=== PATIENT | female | born 1995 | race Caucasian/White ===

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

== ENCOUNTER 2018-09-20 21:05 | Emergency (ER) | payer OTHER ==
[2018-09-20 21:10] VITALS: BP 117/83; PULSE 81; RESP 16; TEMP 98.9
[2018-09-20 21:32] LABS: Appearance,Urine Cloudy (Clear); Bacteria,Urine Occasional /hpf; Bilirubin,Urine Negative (Negative); Blood,Urine Negative (Negative); Color,Urine Yellow; Glucose,Urine (UA) Negative (Negative); Ketones,Urine Negative (Negative); Leukocyte Esterase,Urine Small (Negative); Mucus,Urine Rare /hpf; Nitrite,Urine Negative (Negative); Protein,Urine Negative (Negative); RBC,Urine 7 /hpf (0-5); Specific Gravity,Urine 1.017 (1.001-1.035); Squamous Epithelial Cell,Urine 7 /hpf (0-4); Urobilinogen,Urine <2.0 mg/dL (<2.0); WBC,Urine 5 /hpf (0-5)
--- NOTE | 2018-09-20 21:41 | ED ---
Abdominal Pain HPI - General Chief Complaint: Abdominal Pain Stated Complaint: Abd pain Time Seen by Provider: 09/20/18 21:12 Source: patient Mode of arrival: ambulatory Limitations: no limitations - History of Present Illness Initial Comments: This patient is 22-year-old woman who presents to be evaluated for abdominal pain. Patient states that she started having symptoms Bruno evening. She began having suprapubic cramping type pain. The pain is currently moderate. She states it's worse with trying to walk. The pain is better if she hunches o jadyn. The patient states that over the course of next few days this worsened and she was seen earlier this week at the clinic in [place]. She states at that time she was diagnosed with bacterial vaginosis and was given prescription for metronidazole which she has been taking twice a day. She was called back in yesterday and given diagnosis of chlamydia. She states she was sent out with prescription for an antibiotic but she does not recall what antibiotic she took. She states she took 500 mg of something. Patient states that she had taken antibiotics today at 4 PM. The patient states that the pain is migrated slightly higher. She denies any gastrointestinal type symptoms, no nausea vomiting diarrhea. No change in urination. She has had a little bit of discharge. MD Complaint: abdominal pain -: days(s) Location: suprapubic Radiation: none Severity: moderate Quality: cramping Consistency: constant Improves With: nothing Worsens With: nothing Associated Symptoms: other (Vaginal discharge) - Related Data LMP (females 10-50): last week Home Medications Medication Instructions Recorded Confirmed Azithromycin [Zithromax] 1,000 mg PO ONCE 09/20/18 09/20/18 Previous Rx's Medication Instructions Recorded Doxycycline [Vibramycin] 100 mg PO BID #28 cap 09/20/18 Allergies Allergy/AdvReac Type Severity Reaction Status Date / Time No Known Allergies Allergy Verified 09/20/18 21:28 Review of Systems ROS Statement: Those systems with pertinent positive or pertinent negative responses have been documented in the HPI. ROS Other: All systems not noted in ROS Statement are negative. Constitutional: Denies: fever, chills Respiratory: Denies: cough, dyspnea Cardiovascular: Denies: chest pain, palpitations Gastrointestinal: Reports: abdominal pain. Denies: nausea, vomiting, diarrhea, constipation Genitourinary: Reports: discharge. Denies: urgency, dysuria, frequency, hematuria Musculoskeletal: Denies: back pain Skin: Denies: rash, lesions Neurological: Denies: headache Past Medical History Past Medical History: No Reported History Additional Past Medical History / Comment(s): FX RT ARM, CURRENTLY IN SPLINT. PREVIOUS FX OF LEFT ARM AT AGE 7 History of Any Multi-Drug Resistant Organisms: None Reported Past Surgical History: Orthopedic Surgery Past Anesthesia/Blood Transfusion Reactions: No Reported Reaction Additional Past Anesthesia/Blood Transfusion Reaction / Comment(s): NO FAMILY HX OF PROBLEMS Past Psychological History: No Psychological Hx Reported Smoking Status: Never smoker Past Alcohol Use History: None Reported Past Drug Use History: None Reported - Past Family History Mother Family Medical History: No Reported History General Exam Limitations: no limitations General appearance: alert, in no apparent distress Head exam: Present: atraumatic, normocephalic Eye exam: Present: normal appearance. Absent: scleral icterus, conjunctival injection ENT exam: Present: normal oropharynx Respiratory exam: Present: normal lung sounds bilaterally. Absent: respiratory distress, wheezes, rales, rhonchi, stridor Cardiovascular Exam: Present: regular rate, normal rhythm, normal heart sounds. Absent: systolic murmur, diastolic murmur, rubs, gallop GI/Abdominal exam: Present: soft, tenderness (There is mild suprapubic tenderness without guarding or rebound), normal bowel sounds. Absent: distended, guarding, rebound, rigid, mass, pulsatile mass, hernia Extremities exam: Present: normal inspection, normal capillary refill. Absent: pedal edema, calf tenderness Back exam: Present: normal inspection. Absent: CVA tenderness (R), CVA tenderness (L) Neurological exam: Present: alert Skin exam: Present: warm, dry, intact, normal color. Absent: rash Course Vital Signs 09/20/18 21:08 Temperature 98.9 F Pulse Rate 81 Respiratory 16 Rate Blood Pressure 117/83 O2 Sat by Pulse 98 Oximetry Medical Decision Making - Lab Data Lab Results 09/20/18 09/20/18 Range/Units 21:20 21:20 Urine Color Yellow Urine Appearance Cloudy H (Clear) Urine pH 7.0 (5.0-8.0) Ur Specific [place] 1.017 (1.001-1.035) Urine Protein Negative (Negative) Urine Glucose (UA) Negative (Negative) Urine Ketones Negative (Negative) Urine Blood Negative (Negative) Urine Nitrite Negative (Negative) Urine Bilirubin Negative (Negative) Urine Urobilinogen <2.0 (<2.0) mg/dL Ur Leukocyte Esterase Small H (Negative) Urine RBC 7 H (0-5) /hpf Urine WBC 5 (0-5) /hpf Ur Squamous Epith Cells 7 H (0-4) /hpf Urine Bacteria Occasional H (None) /hpf Urine Mucus Rare H (None) /hpf Urine HCG, Qual Not Detected (Not Detectd) Disposition Clinical Impression: Cervicitis Disposition: HOME SELF-CARE Condition: Fair Instructions (If sedation given, give patient instructions): Cervicitis (ED) Prescriptions: Doxycycline [Vibramycin] 100 mg PO BID #28 cap Is patient prescribed a controlled substance at d/c from ED?: No Referrals: Jayshree Jaramillo MD [Primary Care Provider] - 1-2 days
[2018-09-20] MEDS ORDERED: cefTRIAXone 250 MG VIAL IM STA (21:49)
[2018-09-20] MEDS ORDERED: DOXYCYCLINE 100 MG CAP PO STA (21:52)
[2018-09-20] MEDS ORDERED: IBUPROFEN 600 MG TAB PO STA (21:52)
== END 2018-09-20 23:34 | disposition home or self-care (01) ==
LOC: EC 21:05
DX: N72 Inflammatory disease of cervix uteri (principal)
CPT/HCPCS: 81001; 81025; 99283; 96372; J0696

== ENCOUNTER 2018-11-19 06:53 | Emergency (ER) | payer OTHER ==
--- NOTE | 2018-11-19 07:42 | ED ---
General Adult HPI - General Stated complaint: abd pain Time Seen by Provider: 11/19/18 06:57 Source: patient, RN notes reviewed Mode of arrival: ambulatory Limitations: no limitations - History of Present Illness Initial comments: This a 22-year-old female presents emergency Department chief complaint constipation. Patient states she has had bowel movement issues for last 1 mo nt. Patient states that she was in [place] had to take a few doses of MiraLAX. She states that she felt she has go but can't but then on Monday she had a large bowel movement. Patient states that she had some pain with bowel movement but the pain has dissipated. She states that she does have some blood streaking now with bowel movements. Denies any bloody stools. Denies any prior abdominal issues no surgeries no prior colonoscopy or EGD. Patient has no urinary symptoms denies any chance . - Related Data Previous Rx's Medication Instructions Recorded Hydrocortisone Pr Cream 1 applic RECTAL TID #15 gram 11/19/18 [Proctosol-Hc 2.5%] Allergies Allergy/AdvReac Type Severity Reaction Status Date / Time No Known Allergies Allergy Verified 11/19/18 07:26 Review of Systems ROS Statement: Those systems with pertinent positive or pertinent negative responses have been documented in the HPI. ROS Other: All systems not noted in ROS Statement are negative. Past Medical History Past Medical History: No Reported History Additional Past Medical History / Comment(s): FX RT ARM, CURRENTLY IN SPLINT. PREVIOUS FX OF LEFT ARM AT AGE 7 History of Any Multi-Drug Resistant Organisms: None Reported Past Surgical History: Orthopedic Surgery Past Anesthesia/Blood Transfusion Reactions: No Reported Reaction Additional Past Anesthesia/Blood Transfusion Reaction / Comment(s): NO FAMILY HX OF PROBLEMS Past Psychological History: No Psychological Hx Reported Smoking Status: Never smoker Past Alcohol Use History: None Reported Past Drug Use History: None Reported - Past Family History Mother Family Medical History: No Reported History General Exam Limitations: no limitations General appearance: alert, in no apparent distress Head exam: Present: atraumatic, normocephalic, normal inspection Eye exam: Present: normal appearance, PERRL, EOMI. Absent: scleral icterus, conjunctival injection, periorbital swelling Respiratory exam: Present: normal lung sounds bilaterally. Absent: respiratory distress, wheezes, rales, rhonchi, stridor Cardiovascular Exam: Present: regular rate, normal rhythm, normal heart sounds. Absent: systolic murmur, diastolic murmur, rubs, gallop, clicks GI/Abdominal exam: Present: soft, normal bowel sounds. Absent: distended, tenderness, guarding, rebound, rigid Back exam: Absent: CVA tenderness (R), CVA tenderness (L) Skin exam: Present: warm, dry, intact, normal color. Absent: rash Course Vital Signs 11/19/18 07:04 Temperature 99.4 F Pulse Rate 114 H Respiratory 16 Rate Blood Pressure 121/72 O2 Sat by Pulse 96 Oximetry Medical Decision Making - Medical Decision Making 22-year-old female presented for constipation, gassy feeling. Patient had urinalysis and x-ray x-ray shows moderate amount of bowel gas. This is primarily related to patient laxative use. Patient will do daily fiber, we given hemorrhoid cream and discharged. - Lab Data Lab Results 11/19/18 11/19/18 Range/Units 08:05 08:05 Urine Color Yellow Urine Appearance Clear (Clear) Urine pH 6.5 (5.0-8.0) Ur Specific [place] 1.010 (1.001-1.035) Urine Protein Negative (Negative) Urine Glucose (UA) Negative (Negative) Urine Ketones 2+ H (Negative) Urine Blood Small H (Negative) Urine Nitrite Negative (Negative) Urine Bilirubin Negative (Negative) Urine Urobilinogen <2.0 (<2.0) mg/dL Ur Leukocyte Esterase Negative (Negative) Urine RBC 6 H (0-5) /hpf Urine WBC 1 (0-5) /hpf Ur Squamous Epith Cells 2 (0-4) /hpf Urine Bacteria Few H (None) /hpf Urine Mucus Rare H (None) /hpf Urine HCG, Qual Not Detected (Not Detectd) Disposition Clinical Impression: Abdominal pain, Hemorrhoids Disposition: HOME SELF-CARE Condition: Stable Instructions (If sedation given, give patient instructions): Abdominal Pain (ED) Additional Instructions: Please return to the Emergency Department if symptoms worsen or any other concerns. Prescriptions: Hydrocortisone Pr Cream [Proctosol-Hc 2.5%] 1 applic RECTAL TID #15 gram Is patient prescribed a controlled substance at d/c from ED?: No Referrals: Jayshree Jaramillo MD [Primary Care Provider] - 1-2 days Time of Disposition: 09:08
[2018-11-19 08:27] LABS: Appearance,Urine Clear (Clear); Bacteria,Urine Few /hpf; Bilirubin,Urine Negative (Negative); Blood,Urine Small (Negative); Color,Urine Yellow; Glucose,Urine (UA) Negative (Negative); Ketones,Urine 2+ (Negative); Leukocyte Esterase,Urine Negative (Negative); Mucus,Urine Rare /hpf; Nitrite,Urine Negative (Negative); PH, Urine 6.5 (5.0-8.0); Protein,Urine Negative (Negative); RBC,Urine 6 /hpf (0-5); Squamous Epithelial Cell,Urine 2 /hpf (0-4); Urobilinogen,Urine <2.0 mg/dL (<2.0)
--- NOTE | 2018-11-19 08:43 | XR ---
EXAMINATION TYPE: XR KUB DATE OF EXAM: 11/19/2018 COMPARISON: NONE HISTORY: Pain TECHNIQUE: Single supine KUB image of the abdomen is obtained FINDINGS: Small bowel demonstrates no evidence for dilatation or air fluid levels. Gas and fecal material is seen in non-distended colon. No convincing evidence for pneumoperitoneum. No unusual calcifications. The lung bases are clear. The osseous structures are intact. IMPRESSION: 1. Overall nonobstructive bowel gas pattern.
[2018-11-19 09:13] VITALS: BP 116/68; PULSE 101; RESP 19; TEMP 99
== END 2018-11-19 09:13 | disposition home or self-care (01) ==
LOC: EC 06:53
DX: K64.9 Unspecified hemorrhoids (principal); K59.00 Constipation, unspecified; Z87.81 Personal history of (healed) traumatic fracture
CPT/HCPCS: 74018; 81001; 81025; 99284

== ENCOUNTER 2019-03-27 12:03 | Inpatient (IN) | payer OTHER ==
[2019-03-27] MEDS ORDERED: methylPREDNISolone SOD SUCCI 125 MG/2 ML VIAL IV STA (13:30)
[2019-03-27] MEDS ORDERED: ALBUTEROL NEBULIZED 2.5 MG/3 ML INHALATION STA (13:30)
[2019-03-27] MEDS ORDERED: MAGNESIUM SULFATE-D5W PMX 1 GM in DEXTROSE/WATER 1 100ML.BAG IVPB STA (13:30)
[2019-03-27] MEDS ORDERED: IPRATROPIUM-ALBUTEROL 3 ML NEB INHALATION STA ×2 (13:30→15:57)
[2019-03-27 14:06] LABS: Basophils # (A) 0.2 k/uL (0-0.2); Basophils % (A) 1 %; Eosinophils # (A) 0.8 k/uL (0-0.7); Eosinophils % (A) 6 %; HCT 43.5 % (34.0-46.0); HGB 14.7 gm/dL (11.4-16.0); Lymphocytes % (A) 7 %; MCH 30.6 pg (25.0-35.0); MCHC 33.7 g/dL (31.0-37.0); MCV 90.8 fL (80.0-100.0); Mean Platelet Volume 7.1; Monocytes # (A) 0.8 k/uL (0-1.0); Monocytes % (A) 6 %; Neutrophils # (A) 10.4 k/uL (1.3-7.7); Neutrophils % (A) 78 %; Platelet Count 366 k/uL (150-450); RBC 4.79 m/uL (3.80-5.40); RDW 13.5 % (11.5-15.5); WBC 13.3 k/uL (3.8-10.6)
[2019-03-27 14:12] LABS: ALT 33 U/L (4-34); AST 38 U/L (14-36); African American GFR (CKD) >90 (>60 ml/min/1.73 sqM); Albumin 5.3 g/dL (3.5-5.0); Alkaline Phosphatase 118 U/L (38-126); Anion Gap 14 mmol/L; Blood Urea Nitrogen 8 mg/dL (7-17); Carbon Dioxide 21 mmol/L (22-30); Chloride 105 mmol/L (98-107); Glucose 89 mg/dL (74-99); Non-African American GFR(CKD) >90 (>60 ml/min/1.73 sqM); Potassium 4.9 mmol/L (3.5-5.1); Sodium 140 mmol/L (137-145); Total Bilirubin 0.8 mg/dL (0.2-1.3); Total Protein 8.9 g/dL (6.3-8.2)
--- NOTE | 2019-03-27 14:41 | ED ---
General Adult HPI - General Chief complaint: Upper Respiratory Infection Stated complaint: GIULIANA Time Seen by Provider: 03/27/19 12:58 Source: patient, RN notes reviewed, old records reviewed Mode of arrival: ambulatory Limitations: no limitations - History of Present Illness Initial comments: Elba is a 23-year-old female history of asthma. She presents today with worsening shortness of breath and cough over the past week. She was seen at urgent care earlier today was told to come to the ER if the breathing got worse. Patient states that she has albuterol but has not used it at home. Patient was given shot of Rocephin and Solu-Medrol earlier today at urgent care. That she's not been hospitalized in the past for pneumonia or asthma. - Related Data Home Medications Medication Instructions Recorded Confirmed Albuterol Inhaler [Ventolin Hfa 1 - 2 puff INHALATION RT-Q4H PRN 03/27/19 03/27/19 Inhaler] Azithromycin [Zithromax Z-pack] See Taper PO DAILY 03/27/19 03/27/19 predniSONE 50 mg PO DAILY 03/27/19 03/27/19 Allergies Allergy/AdvReac Type Severity Reaction Status Date / Time No Known Allergies Allergy Verified 03/27/19 17:39 Review of Systems ROS Statement: Those systems with pertinent positive or pertinent negative responses have been documented in the HPI. ROS Other: All systems not noted in ROS Statement are negative. Past Medical History Past Medical History: No Reported History Additional Past Medical History / Comment(s): FX RT ARM, CURRENTLY IN SPLINT. PREVIOUS FX OF LEFT ARM AT AGE 7 History of Any Multi-Drug Resistant Organisms: None Reported Past Surgical History: Orthopedic Surgery Past Anesthesia/Blood Transfusion Reactions: No Reported Reaction Additional Past Anesthesia/Blood Transfusion Reaction / Comment(s): NO FAMILY HX OF PROBLEMS Past Psychological History: No Psychological Hx Reported Smoking Status: Never smoker Past Alcohol Use History: None Reported Past Drug Use History: None Reported - Past Family History Mother Family Medical History: No Reported History General Exam Limitations: no limitations General appearance: alert, in no apparent distress Head exam: Present: atraumatic, normocephalic, normal inspection Eye exam: Present: normal appearance, PERRL, EOMI. Absent: scleral icterus, conjunctival injection, periorbital swelling ENT exam: Present: normal exam, mucous membranes moist Neck exam: Present: normal inspection. Absent: tenderness, meningismus, lymphadenopathy Respiratory exam: Present: wheezes (diffuse wheezing bilaterally.), other (rhochi L lung). Absent: normal lung sounds bilaterally, respiratory distress, rales, rhonchi, stridor Cardiovascular Exam: Present: regular rate, normal rhythm, normal heart sounds. Absent: systolic murmur, diastolic murmur, rubs, gallop, clicks GI/Abdominal exam: Present: soft, normal bowel sounds. Absent: distended, tend erness, guarding, rebound, rigid Extremities exam: Present: normal inspection, full ROM, normal capillary refill. Absent: tenderness, pedal edema, joint swelling, calf tenderness Back exam: Present: normal inspection Neurological exam: Present: alert, oriented X3, CN II-XII intact Psychiatric exam: Present: normal affect, normal mood Course Vital Signs 03/27/19 03/27/19 03/27/19 12:44 13:00 13:02 Temperature 98.2 F 98.6 F Pulse Rate 112 H 103 H Respiratory 22 22 20 Rate Blood Pressure 116/79 113/75 O2 Sat by Pulse 94 L 94 L Oximetry 03/27/19 03/27/19 03/27/19 13:56 14:13 14:25 Temperature 98.6 F Pulse Rate 115 H 112 H 114 H Respiratory 22 Rate Blood Pressure 124/96 O2 Sat by Pulse 96 Oximetry 03/27/19 03/27/19 03/27/19 14:27 14:47 15:00 Temperature Pulse Rate 114 H 122 H 103 H Respiratory 19 Rate Blood Pressure 128/74 O2 Sat by Pulse 95 Oximetry 03/27/19 03/27/19 03/27/19 16:04 16:14 17:00 Temperature Pulse Rate 104 H 124 H 113 H Respiratory 23 Rate Blood Pressure 114/78 O2 Sat by Pulse 96 Oximetry Medical Decision Making - Medical Decision Making final female presents today with a week of cough congestion. She does have history of asthma. She read emergency department with significant labored breathing. She did have wheezing. Patient at this time has been given multiple breathing treatments magnesium. She denies some nondenominational but continues to cough. Said a low-grade temperature. FLu pending. After multiple breathing treated discuss concern that the Patient for hospitalization for asthma exacerbation. Patient is agreeable to this. Discussed case with Dr. coombs. Recommend consult to Dr. Flores. - Lab Data Result diagrams: 03/27/19 13:40 03/27/19 13:40 Lab Results 03/27/19 03/27/19 03/27/19 Range/Units 13:40 13:40 15:33 WBC 13.3 H (3.8-10.6) k/uL RBC 4.79 (3.80-5.40) m/uL Hgb 14.7 (11.4-16.0) gm/dL Hct 43.5 (34.0-46.0) % MCV 90.8 (80.0-100.0) fL MCH 30.6 (25.0-35.0) pg MCHC 33.7 (31.0-37.0) g/dL RDW 13.5 (11.5-15.5) % Plt Count 366 (150-450) k/uL Neutrophils % 78 % Lymphocytes % 7 % Monocytes % 6 % Eosinophils % 6 % Basophils % 1 % Neutrophils # 10.4 H (1.3-7.7) k/uL Lymphocytes # 1.0 (1.0-4.8) k/uL Monocytes # 0.8 (0-1.0) k/uL Eosinophils # 0.8 H (0-0.7) k/uL Basophils # 0.2 (0-0.2) k/uL Sodium 140 (137-145) mmol/L Potassium 4.9 (3.5-5.1) mmol/L Chloride 105 (98-107) mmol/L Carbon Dioxide 21 L (22-30) mmol/L Anion Gap 14 mmol/L BUN 8 (7-17) mg/dL Creatinine 0.61 (0.52-1.04) mg/dL Est GFR (CKD-EPI)AfAm >90 (>60 ml/min/1.73 sqM) Est GFR (CKD-EPI)NonAf >90 (>60 ml/min/1.73 sqM) Glucose 89 (74-99) mg/dL Calcium 11.0 H (8.4-10.2) mg/dL Magnesium 2.0 (1.6-2.3) mg/dL Total Bilirubin 0.8 (0.2-1.3) mg/dL AST 38 H (14-36) U/L ALT 33 (4-34) U/L Alkaline Phosphatase 118 (38-126) U/L Total Protein 8.9 H (6.3-8.2) g/dL Albumin 5.3 H (3.5-5.0) g/dL Urine HCG, Qual Not Detected (Not Detectd) - Radiology Data Radiology results: report reviewed Chest x-ray is negative for any acute cardio pulmonary process. Disposition Clinical Impression: Asthma exacerbation Disposition: ADMITTED IP TO THIS HOSP Condition: Stable Is patient prescribed a controlled substance at d/c from ED?: No Referrals: Jayshree Jaramillo MD [Primary Care Provider] - 1-2 days Time of Disposition: 17:59
--- NOTE | 2019-03-27 15:19 | XR ---
EXAMINATION TYPE: XR chest 2V DATE OF EXAM: 03/27/2019 COMPARISON: NONE HISTORY: Shortness of breath and persistent cough for one week. TECHNIQUE: Frontal and lateral views of the chest are obtained. FINDINGS: There is no focal air space opacity, pleural effusion, or pneumothorax seen. The cardiac silhouette size is within normal limits. The osseous structures are intact. IMPRESSION: No acute cardiopulmonary process.
[2019-03-27] MEDS ORDERED: SODIUM CHLORIDE 0.9% 1,000 ML IV ONE (15:35)
[2019-03-27] MEDS ORDERED: ACETAMINOPHEN TAB 500 MG TAB PO STA (15:36)
[2019-03-27] MEDS ORDERED: guaiFENesin-DM 100-10MG/5ML 10 ML CUP PO STA (15:37)
[2019-03-27] MEDS ORDERED: IPRATROPIUM-ALBUTEROL 3 ML NEB INHALATION PRN (17:59)
[2019-03-27] MEDS ORDERED: IBUPROFEN 600 MG TAB PO STA (18:02)
[2019-03-27] MEDS ORDERED: guaiFENesin-Coden 100-10MG/5ML 10 ML CUP PO PRN (18:19)
[2019-03-27] MEDS: methylPREDNISolone SOD SUCCI 125 MG/2 ML VIAL IV SCH ×3 (19:01→23:18)
[2019-03-27] MEDS: SODIUM CHLORIDE 0.9% 1,000 ML IV SCH (19:03)
[2019-03-27] MEDS: guaiFENesin 600 MG TABLET.ER PO SCH (22:11)
[2019-03-27] MEDS: FAMOTIDINE 20 MG/2 ML VIAL IV SCH (23:17)
[2019-03-27] MEDS: HEPARIN SODIUM,PORCINE 5,000 UNIT/ML 1 ML VIAL SQ SCH (23:17)
[2019-03-28] MEDS: ALBUTEROL NEBULIZED 2.5 MG/3 ML INHALATION SCH ×5 (02:04→20:47)
[2019-03-28] MEDS: SODIUM CHLORIDE 0.9% 1,000 ML IV SCH ×3 (03:14→23:48)
[2019-03-28] MEDS: methylPREDNISolone SOD SUCCI 125 MG/2 ML VIAL IV SCH ×3 (05:02→23:48)
[2019-03-28] MEDS: HEPARIN SODIUM,PORCINE 5,000 UNIT/ML 1 ML VIAL SQ SCH ×2 (08:06→21:21)
[2019-03-28] MEDS: FAMOTIDINE 20 MG/2 ML VIAL IV SCH ×2 (08:06→21:21)
[2019-03-28] MEDS: guaiFENesin 600 MG TABLET.ER PO SCH ×2 (08:06→21:19)
[2019-03-28] MEDS ORDERED: AZITHROMYCIN 250 MG TAB PO SCH (09:00)
[2019-03-28] MEDS ORDERED: NICOTINE 7MG/24HR PATCH TRANSDERM SCH (09:00)
--- NOTE | 2019-03-28 14:31 | P.HPIM ---
History of Present Illness 23-year-old female is admitted for asthma exacerbation was having shortness of breath and cough for the past week patient received IV steroids with significant improvement patient has good air entry but does have significant cough. Patient also is complaining of multiple other symptoms including diarrhea which has been going on for about 3 weeks and the patient say she was having loose bowel movements about 2-3 an hour at although patient is not clinically dehydrated as patient is quite a bit concerned about the diarrhea after and a C. diff testing which was negative patient influenza was negative. Patient denied any recent flulike symptoms patient denied any recent travel patient was on antibiotics Z- Saeed in the past presently not on any medications here. Patient had about 1-2 episodes of asthma exacerbation year. Patient does have eosinophilia although mild. Patient will be started on massive stabilizer and steroids along with inhaled steroids and the rescue inhaler and can be discharged today or tomorrow. Although patient prefers to have gastroenterology evaluation here because of which gastric body was consulted here will watch her here today patient will be started on Bentyl as her C. diff is negative my suspicion for other infectious colitis is low considering her duration of symptoms because of which I'll start her on symptomatically treatment with Bentyl. Patient is complaining of yellowish sputum production although patient has inflammatory bronchitis because of which I do not believe patient will require antibiotics and patient steroids will be switched to oral today. Patient does have significant cough which appears to be most bothersome to the patient at this time and patient will be s tarted on symptomatically treatment for that. Review of Systems REVIEW OF SYSTEMS: CONSTITUTIONAL: No fever, no malaise, no fatigue. HEENT: No recent visual problems or hearing problems. Denied any sore throat. CARDIOVASCULAR: No chest pain, orthopnea, PND, no palpitations, no syncope. PULMONARY: no hemoptysis. GASTROINTESTINAL: No diarrhea, no nausea, no vomiting, no abdominal pain. NEUROLOGICAL: No headaches, no weakness, no numbness. HEMATOLOGICAL: Denies any bleeding or petechiae. GENITOURINARY: Denies any burning micturition, frequency, or urgency. MUSCULOSKELETAL/RHEUMATOLOGICAL: Denies any joint pain, swelling, or any muscle pain. ENDOCRINE: Denies any polyuria or polydipsia. The rest of the 14-point review of systems is negative. Past Medical History Past Medical History: Asthma Additional Past Medical History / Comment(s): FX RT ARM, SPLINTED AND SURGERY. PREVIOUS FX OF LEFT ARM AT AGE 7 History of Any Multi-Drug Resistant Organisms: None Reported Past Surgical History: Orthopedic Surgery Past Anesthesia/Blood Transfusion Reactions: No Reported Reaction Additional Past Anesthesia/Blood Transfusion Reaction / Comment(s): NO FAMILY HX OF PROBLEMS Past Psychological History: No Psychological Hx Reported Smoking Status: Never smoker Past Alcohol Use History: None Reported Past Drug Use History: None Reported - Past Family History Mother Family Medical History: No Reported History Medications and Allergies Home Medications Medication Instructions Recorded Confirmed Type Albuterol Inhaler [Ventolin Hfa 1 - 2 puff INHALATION RT-Q4H PRN 03/27/19 03/27/19 History Inhaler] Dicyclomine [Bentyl] 10 mg PO QID PRN #60 capsule 03/28/19 Rx Famotidine [Pepcid] 20 mg PO BID #20 tablet 03/28/19 Rx Mometasone/Formoterol [Dulera 100 2 puff INHALATION BID #1 inhaler 03/28/19 Rx Mcg/5 Mcg Inhaler] Montelukast [Singulair] 10 mg PO DAILY #30 tab 03/28/19 Rx guaiFENesin-Coden 100-10MG/5ML 10 ml PO TID PRN #90 ml 03/28/19 Rx [Robitussin AC] predniSONE 10 mg PO DAILY #30 tab 03/28/19 Rx Allergies Allergy/AdvReac Type Severity Reaction Status Date / Time No Known Allergies Allergy Verified 03/27/19 17:39 Physical Exam Vitals: Vital Signs Temp Pulse Pulse Pulse Resp BP BP 03/28/19 12:51 116 H 03/28/19 12:41 112 H 03/28/19 09:17 104 H 03/28/19 09:05 104 H 03/28/19 07:00 98.0 F 93 18 128/85 03/28/19 06:00 98.3 F 90 113/77 03/28/19 01:56 98 F 95 16 112/75 03/27/19 21:49 98 F 67 16 147/85 03/27/19 21:00 98.6 F 112 H 17 124/88 03/27/19 20:00 98.6 F 105 H 23 107/76 03/27/19 19:00 98.7 F 98 17 99/79 03/27/19 17:00 113 H 23 114/78 03/27/19 16:14 124 H 03/27/19 16:04 104 H 03/27/19 15:00 103 H 19 128/74 03/27/19 14:47 122 H 03/27/19 14:27 114 H 03/27/19 14:25 114 H Pulse Ox 03/28/19 12:51 03/28/19 12:41 03/28/19 09:17 03/28/19 09:05 03/28/19 07:00 96 03/28/19 06:00 95 03/28/19 01:56 96 03/27/19 21:49 03/27/19 21:00 95 03/27/19 20:00 90 L 03/27/19 19:00 95 03/27/19 17:00 96 03/27/19 16:14 03/27/19 16:04 03/27/19 15:00 95 03/27/19 14:47 03/27/19 14:27 03/27/19 14:25 Intake and Output 03/27/19 03/28/19 03/28/19 22:59 06:59 14:59 Intake Total 200 Output Total 200 Balance 200 -200 Intake: Amount of Fluid Infused ( 200 ml) Output: Urine 200 Other: Voiding Method Toilet # Voids 1 2 Weight 65.363 kg PHYSICAL EXAMINATION: GENERAL: The patient is alert and oriented x3, patient is in distress because of coughing. Well developed, well nourished. HEENT: Pupils are round and equally reacting to light. EOMI. No scleral icterus. No conjunctival pallor. Normocephalic, atraumatic. No pharyngeal erythema. No thyromegaly. CARDIOVASCULAR: S1 and S2 present. No murmurs, rubs, or gallops. PULMONARY: Chest is clear to auscultation, no wheezing or crackles. ABDOMEN: Soft, nontender, nondistended, normoactive bowel sounds. No palpable organomegaly. MUSCULOSKELETAL: No joint swelling or deformity. EXTREMITIES: No cyanosis, clubbing, or pedal edema. NEUROLOGICAL: Gross neurological examination did not reveal any focal deficits. SKIN: No rashes. Results CBC & Chem 7: 03/27/19 13:40 03/27/19 13:40 Thrombosis Risk Factor Assmnt - Choose All That Apply Any of the Below Risk Factors Present?: No Other Risk Factors: No Other congenital or acquired thrombophilia - If yes, enter type in comment: No Thrombosis Risk Factor Assessment Level: Very Low Risk Assessment and Plan Plan: -Acute exacerbation of asthma: Patient has significant improvement continue with inhalational treatments patient will be switched to oral steroids probably can be discharged tomorrow. Patient will benefit from outpatient pulmonary function testing. 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 Patient will not require any antibiotics patient bronchitis is ALLERGIC. Patient oxygen will be tapered down. -Subacute to chronic diarrhea: Patient will definitely need to workup as an outpatient since her C. diff is negative patient will be started on symptomatically treatment and the workup will be started here with stool WBC stool culture and Giardia patient to may need colonoscopy if she continues to have diarrhea as an outpatient patient was started on Bentyl will monitor for today we'll leave her on IV fluids possibility of discharge tomorrow. Eosinophilic colitis is a consideration. -Leukocytosis reactive -Tachycardia probably because of asthma or breathing treatments. We'll obtain an EKG and a TSH GI prophylaxis with Pepcid and DVT prophylaxis ambulation
--- NOTE | 2019-03-28 15:36 | P.CNPUL ---
History of Present Illness Consult date: 03/28/19 Requesting physician: Alexey E Thaddeus Reason for consult: dyspnea, cough Chief complaint: dyspnea, cough History of present illness: this is a 23-year-old white female patient of Dr. Jayshree Jaramillo, with past medical history of exercise induced chronic bronchial asthma, mild intermittent, patient is usually only on Ventolin rescue inhaler. patient came into the hospital on 03/27/2019 with complaints of worsening shortness of breath, and cough over the past week. She was seen in the urgent care the day of her admission, and was advised to come to the emergency department if her breathing got worse. She states over the last week she has been using her rescue inhaler quite frequently, and having nighttime symptoms. She is bringing up some yellow colored phlegm at times, she states she is sweaty. In addition she has been having ongoing diarrhea for a period of about a week, she denies any recent use of antibiotics. Denies any nausea or vomiting. Chest x-ray showed no acute cardiopulmonary process. Patient has been afebrile, but tachycardic, with a heart rate in the 100's-110's. Pulse ox is ranging from 90-94 on room air, and patient has been intermittently wearing to 2 L of supplemental oxygen, lab work was reviewed showing mild leukocytosis, white blood cell count is 13.3, hem oglobin is 14.7, sodium was 140, potassium is 4.9, chloride was 105, CO2 is 21, BUN was 8 creatinine 0.61, test was negative, C. diff was negative, influenza screen was negative. patient received 1 dose of Rocephin in the emergency department, nebulized bronchodilators were started, and IV steroids. Patient was given a liter bolus of IV fluids, and is receiving IV hydration at a rate of 100 ML per hour. Still feels congested and tight, tachycardic and continues with frequent cough. Review of Systems All systems: negative Constitutional: Denies chills, Denies fever Eyes: denies blurred vision, denies pain Ears, nose, mouth and throat: Denies headache, Denies sore throat Cardiovascular: Denies chest pain, Denies shortness of breath Respiratory: Reports congestion, Reports cough, Reports cough with sputum, Reports dyspnea Gastrointestinal: Denies abdominal pain, Denies diarrhea, Denies nausea, Denies vomiting Genitourinary: Denies dysuria, Denies hematuria Musculoskeletal: Denies myalgias Integumentary: Denies pruritus, Denies rash Neurological: Denies numbness, Denies weakness Psychiatric: Denies anxiety, Denies depression Endocrine: Denies fatigue, Denies weight change Past Medical History Past Medical History: Asthma Additional Past Medical History / Comment(s): FX RT ARM, SPLINTED AND SURGERY. PREVIOUS FX OF LEFT ARM AT AGE 7 History of Any Multi-Drug Resistant Organisms: None Reported Past Surgical History: Orthopedic Surgery Past Anesthesia/Blood Transfusion Reactions: No Reported Reaction Additional Past Anesthesia/Blood Transfusion Reaction / Comment(s): NO FAMILY HX OF PROBLEMS Past Psychological History: No Psychological Hx Reported Smoking Status: Never smoker Past Alcohol Use History: None Reported Past Drug Use History: None Reported - Past Family History Mother Family Medical History: No Reported History Medications and Allergies Home Medications Medication Instructions Recorded Confirmed Type Albuterol Inhaler [Ventolin Hfa 1 - 2 puff INHALATION RT-Q4H PRN 03/27/19 03/27/19 History Inhaler] Dicyclomine [Bentyl] 10 mg PO QID PRN #60 capsule 03/28/19 Rx Famotidine [Pepcid] 20 mg PO BID #20 tablet 03/28/19 Rx Mometasone/Formoterol [Dulera 100 2 puff INHALATION BID #1 inhaler 03/28/19 Rx Mcg/5 Mcg Inhaler] Montelukast [Singulair] 10 mg PO DAILY #30 tab 03/28/19 Rx guaiFENesin-Coden 100-10MG/5ML 10 ml PO TID PRN #90 ml 03/28/19 Rx [Robitussin AC] predniSONE 10 mg PO DAILY #30 tab 03/28/19 Rx Allergies Allergy/AdvReac Type Severity Reaction Status Date / Time No Known Allergies Allergy Verified 03/27/19 17:39 Physical Exam Vitals: Vital Signs Temp Pulse Pulse Pulse Resp BP BP 03/28/19 12:51 116 H 03/28/19 12:41 112 H 03/28/19 09:17 104 H 03/28/19 09:05 104 H 03/28/19 07:00 98.0 F 93 18 128/85 03/28/19 06:00 98.3 F 90 113/77 03/28/19 01:56 98 F 95 16 112/75 03/27/19 21:49 98 F 67 16 147/85 03/27/19 21:00 98.6 F 112 H 17 124/88 03/27/19 20:00 98.6 F 105 H 23 107/76 03/27/19 19:00 98.7 F 98 17 99/79 03/27/19 17:00 113 H 23 114/78 03/27/19 16:14 124 H 03/27/19 16:04 104 H Pulse Ox 03/28/19 12:51 03/28/19 12:41 03/28/19 09:17 03/28/19 09:05 03/28/19 07:00 96 03/28/19 06:00 95 03/28/19 01:56 96 03/27/19 21:49 03/27/19 21:00 95 03/27/19 20:00 90 L 03/27/19 19:00 95 03/27/19 17:00 96 03/27/19 16:14 03/27/19 16:04 Intake and Output 03/28/19 03/28/19 03/28/19 06:59 14:59 22:59 Output Total 200 Balance -200 Output: Urine 200 Other: # Voids 2 GENERAL EXAM: Alert, a pleasant, 23-year-old white female patient, on room air, wearing oxygen intermittently, comfortable in no apparent distress. HEAD: Normocephalic/atraumatic. EYES: Normal reaction of pupils, equal size. Conjunctiva pink, sclera white. NOSE: Clear with pink turbinates. THROAT: No erythema or exudates. NECK: No masses, no JVD, no thyroid enlargement, no adenopathy. CHEST: No chest wall deformity. Symmetrical expansion. LUNGS: Equal air entry with prolongation of expiratory phase of breathing, diminished breath sounds, congested cough CVS: Regular rate and rhythm, normal S1 and S2, no gallops, no murmurs, no rubs ABDOMEN: Soft, nontender. No hepatosplenomegaly, normal bowel sounds, no guarding or rigidity. EXTREMITIES: No clubbing, no edema, no cyanosis, 2+ pulses and upper and lower extremities. MUSCULOSKELETAL: Muscle strength and tone normal. SPINE: No scoliosis or deformity SKIN: No rashes CENTRAL NERVOUS SYSTEM: Alert and oriented -3. No focal deficits, tone is normal in all 4 extremities. PSYCHIATRIC: Alert and oriented -3. Appropriate affect. Intact judgment and insight. Results - Laboratory Findings CBC and BMP: 03/27/19 13:40 03/27/19 13:40 Abnormal lab findings: Abnormal Labs 03/27/19 12 13:40 13:40 WBC 13.3 H Neutrophils # 10.4 H Eosinophils # 0.8 H Carbon Dioxide 21 L Calcium 11.0 H AST 38 H Total Protein 8.9 H Albumin 5.3 H - Diagnostic Findings Chest x-ray: report reviewed, image reviewed Assessment and Plan Plan: assessment: #1. Acute exacerbation of mild intermittent bronchial asthma, with tracheobronchitis #2. History of exercise-induced bronchial asthma, symptoms were well-controlled and patient is only maintained on the rescue inhaler never intubated or hospitalized for asthma attack #3. Diarrhea 1 week, C. diff was negative #4. never smoker #5. Mild anion gap metabolic acidosis, present on admission, patient was given IV fluids Plan: Continue current medical treatment, will switch PO steroids to oral, nebulized bronchodilators, add Pulmicort and Perforomist, still dyspneic and bronchospastic. Chest X-ray has been reviewed, showing no acute process. We will continue to follow I performed a history & physical examination of the patient and discussed their management with my nurse practitioner, Kavita Platt. I reviewed the nurse practitioner's note and agree with the documented findings and plan of care. Lung sounds are positive fordiminished breath sounds throughout the lung lira. The findings and the impression was discussed with the patient. I attest to the documentation by the nurse practitioner. Time with Patient: Greater than 30
[2019-03-28] MEDS ORDERED: DICYCLOMINE 10 MG CAP PO PRN (16:18)
[2019-03-28] MEDS: BUDESONIDE 1 MG/2 ML NEBU INHALATION SCH (20:47)
[2019-03-28] MEDS ORDERED: methylPREDNISolone SOD SUCCI 40 MG/ML 1 ML VIAL IV SCH (21:00)
--- NOTE | 2019-03-28 22:58 | P.CONS ---
History of Present Illness - Reason for Consult Consult date: 03/28/19 Diarrhea Requesting physician: Marco Antonio Lucas - Chief Complaint Shortness of breath, cough - History of Present Illness 23-year-old female with a medical history significant for asthma who presented to the hospital due to worsening shortness of breath and cough. At that time the patient was reporting shortness of breath and frequent use of her inhaler with associated cough with phlegm production. Currently she is been seen by the pulmonology service retreating her breathing issues. She is also reported problems with diarrhea which have been occurring over the past 3 weeks. Previously she has reported episodes of constipation in the past but has been having multiple loose bowel movements daily over the past 3 weeks. No blood per rectum reported. Denies any sick contacts, unusual foods, recent antibiotics or travel prior to developing the symptoms. No nighttime symptoms reported. She also reports some sharp cramping pain in the lower abdomen in association with the episodes of diarrhea. Laboratory evaluation was significant for a negative testing for Clostridium difficile, CBC showed a WBC 13.3, hemoglobin 14.7, platelet count 366,000 with normal liver enzymes. Review of Systems REVIEW OF SYSTEMS: CONSTITUTIONAL: Denies any fevers, chills, weight change or fatigue. CARDIOVASCULAR: Denies any chest pain, palpitations high or low blood pressures RESPIRATORY: No hemoptysis, patient has history of asthma and reported shortness of breath and productive cough prior to presentation. GENITOURINARY: No dysuria or hematuria. MUSCULOSKELETAL: No weakness reported. SKIN: Denies any new rashes or lesions, jaundice or pallor. PSYCHIATRIC: Denies any depression or anxiety. NEUROLOGY: Denies headache, denies any new focal deficits. EARS/NOSE/THROAT: No recent hearing change, congestion, nasal discharge or sore throat. EYES: No pain in eyes, discharge or change in vision. GASTROINTESTINAL: As per HPI. Past Medical History Past Medical History: Asthma Additional Past Medical History / Comment(s): FX RT ARM, SPLINTED AND SURGERY. PREVIOUS FX OF LEFT ARM AT AGE 7 History of Any Multi-Drug Resistant Organisms: None Reported Past Surgical History: Orthopedic Surgery Past Anesthesia/Blood Transfusion Reactions: No Reported Reaction Additional Past Anesthesia/Blood Transfusion Reaction / Comm: NO FAMILY HX OF PROBLEMS Past Psychological History: No Psychological Hx Reported Smoking Status: Never smoker Past Alcohol Use History: None Reported Past Drug Use History: None Reported - Past Family History Mother Family Medical History: No Reported History Medications and Allergies Home Medications Medication Instructions Recorded Confirmed Type Albuterol Inhaler [Ventolin Hfa 1 - 2 puff INHALATION RT-Q4H PRN 03/27/19 03/27/19 History Inhaler] Dicyclomine [Bentyl] 10 mg PO QID PRN #60 capsule 03/28/19 Rx Famotidine [Pepcid] 20 mg PO BID #20 tablet 03/28/19 Rx Mometasone/Formoterol [Dulera 100 2 puff INHALATION BID #1 inhaler 03/28/19 Rx Mcg/5 Mcg Inhaler] Montelukast [Singulair] 10 mg PO DAILY #30 tab 03/28/19 Rx guaiFENesin-Coden 100-10MG/5ML 10 ml PO TID PRN #90 ml 03/28/19 Rx [Robitussin AC] predniSONE 10 mg PO DAILY #30 tab 03/28/19 Rx Allergies Allergy/AdvReac Type Severity Reaction Status Date / Time No Known Allergies Allergy Verified 03/27/19 17:39 Physical Exam Vitals: Vital Signs Temp Pulse Pulse Pulse Resp BP BP 03/28/19 12:51 116 H 03/28/19 12:41 112 H 03/28/19 09:17 104 H 03/28/19 09:05 104 H 03/28/19 07:00 98.0 F 93 18 128/85 03/28/19 06:00 98.3 F 90 113/77 03/28/19 01:56 98 F 95 16 112/75 03/27/19 21:49 98 F 67 16 147/85 03/27/19 21:00 98.6 F 112 H 17 124/88 03/27/19 20:00 98.6 F 105 H 23 107/76 03/27/19 19:00 98.7 F 98 17 99/79 03/27/19 17:00 113 H 23 114/78 03/27/19 16:14 124 H 03/27/19 16:04 104 H 03/27/19 15:00 103 H 19 128/74 03/27/19 14:47 122 H Pulse Ox 03/28/19 12:51 03/28/19 12:41 03/28/19 09:17 03/28/19 09:05 03/28/19 07:00 96 03/28/19 06:00 95 03/28/19 01:56 96 03/27/19 21:49 03/27/19 21:00 95 03/27/19 20:00 90 L 03/27/19 19:00 95 03/27/19 17:00 96 03/27/19 16:14 03/27/19 16:04 03/27/19 15:00 95 03/27/19 14:47 Intake and Output 03/27/19 03/28/19 03/28/19 22:59 06:59 14:59 Intake Total 200 Output Total 200 Balance 200 -200 Intake: Amount of Fluid Infused ( 200 ml) Output: Urine 200 Other: Voiding Method Toilet # Voids 1 2 Weight 65.363 kg On physical examination, patient appears comfortable in no apparent distress. HEAD: Normocephalic, atraumatic. EYES: No scleral icterus. No conjunctival injection. MOUTH: No lesions, tongue midline. NECK: Trachea midline, no gross abnormalities. CHEST: Clear to auscultation with no wheezing or rhonchi appreciated. HEART: Regular rate and rhythm. ABDOMEN: Soft, nontender to palpation. Bowel sounds are positive. No organomegaly. No guarding or rigidity. EXTREMITIES: No pedal edema. SKIN: No rashes, no jaundice. NEUROLOGIC: Alert and oriented x3. No focal deficits. Results CBC & Chem 7: 03/27/19 13:40 03/27/19 13:40 Chest x-ray: report reviewed (No acute cardiopulmonary process noted on x-ray of the chest) Assessment and Plan (1) Diarrhea Narrative/Plan: 23-year-old female with a medical history significant for asthma presented to the hospital due to shortness of breath and cough and is currently being treated for pulmonary issues who reported 3 weeks of loose stool. Previously the patient had issues with constipation. No prior endoscopic evaluation. No blood per rectum. No nighttime symptoms reported. Testing for Clostridium difficile was negative. She denied any sick contacts, antibiotics, unusual foods or travel prior to developing the symptoms. Unclear etiology of symptoms, may be functional in etiology, further stool studies are ordered to rule out infectious process. Inflammatory markers also ordered, will await the studies. Current Visit: Yes Status: Acute Code(s): R19.7 - DIARRHEA, UNSPECIFIED SNOMED Code(s): 26311367 Plan: Supportive care Okay for diet as tolerated Testing for Clostridium difficile noted Further stool studies ordered ESR and CRP ordered Okay for antidiarrheals as needed Continue current medical treatment of other medical comorbidities, including asthma No plan for endoscopic evaluation at this time If diarrhea persists patient can follow-up after discharge with the gastroenterology clinic Thank you for allowing us to participate in the care of the patient we'll continue to follow
[2019-03-29] MEDS: methylPREDNISolone SOD SUCCI 125 MG/2 ML VIAL IV SCH ×3 (05:34→17:52)
[2019-03-29] MEDS: BUDESONIDE 1 MG/2 ML NEBU INHALATION SCH ×2 (08:10→19:29)
[2019-03-29] MEDS: ALBUTEROL NEBULIZED 2.5 MG/3 ML INHALATION SCH ×4 (08:10→19:29)
[2019-03-29] MEDS: HEPARIN SODIUM,PORCINE 5,000 UNIT/ML 1 ML VIAL SQ SCH ×2 (08:47→21:04)
[2019-03-29] MEDS: FAMOTIDINE 20 MG/2 ML VIAL IV SCH ×2 (08:47→21:04)
[2019-03-29] MEDS: guaiFENesin 600 MG TABLET.ER PO SCH ×2 (08:47→21:05)
[2019-03-29] MEDS ORDERED: predniSONE 20 MG TAB PO SCH (09:00)
--- NOTE | 2019-03-29 14:43 | P.PN ---
Subjective Progress Note Date: 03/29/19 this is a 23-year-old white female patient of Dr. Jayshree Jaramillo, with past medica l history of exercise induced chronic bronchial asthma, mild intermittent, patient is usually only on Ventolin rescue inhaler. patient came into the hospital on 03/27/2019 with complaints of worsening shortness of breath, and cough over the past week. She was seen in the urgent care the day of her admission, and was advised to come to the emergency department if her breathing got worse. She states over the last week she has been using her rescue inhaler quite frequently, and having nighttime symptoms. She is bringing up some yellow colored phlegm at times, she states she is sweaty. In addition she has been having ongoing diarrhea for a period of about a week, she denies any recent use of antibiotics. Denies any nausea or vomiting. Chest x-ray showed no acute cardiopulmonary process. Patient has been afebrile, but tachycardic, with a heart rate in the 100's-110's. Pulse ox is ranging from 90-94 on room air, and patient has been intermittently wearing to 2 L of supplemental oxygen, lab work was reviewed showing mild leukocytosis, white blood cell count is 13.3, hemoglobin is 14.7, sodium was 140, potassium is 4.9, chloride was 105, CO2 is 21, BUN was 8 creatinine 0.61, test was negative, C. diff was negative, influenza screen was negative. patient received 1 dose of Rocephin in the emergency department, nebulized bronchodilators were started, and IV steroids. Patient was given a liter bolus of IV fluids, and is receiving IV hydration at a rate of 100 ML per hour. Still feels congested and tight, tachycardic and continues with frequent cough. on 03/29/2019 I'm seeing the patient for a follow-up. Clinically improved and she is less short of breath. She was able to sleep all night without having to wake up and cough. However, at a time of my evaluation this morning, she is still congested bronchospastic and wheezy. I think despite her improvement, she may benefit from another day or 2 of inpatient treatment with bronchodilators and steroids. She is less tachycardic compared to yesterday. IV fluids currently is at KVO. Objective - Vital Signs Vital signs: Vital Signs Temp 98.4 F 03/29/19 13:53 Pulse 77 03/29/19 13:53 Resp 16 03/29/19 13:53 BP 114/70 03/29/19 13:53 Pulse Ox 94 L 03/29/19 13:53 Intake & Output 03/28/19 03/29/19 03/29/19 18:59 06:59 18:59 Intake Total 20 540 Balance 20 540 Intake: Intake, IV Titration 40 Amount Sodium Chloride 0.9% 1, 40 000 ml @ 10 mls/hr IV . Q24H [facility] Rx#:[id number] Oral 20 500 Other: Voiding Method Toilet Toilet # Voids 3 2 # Bowel Movements 6 - Exam GENERAL EXAM: Alert, a pleasant, 23-year-old white female patient, on room air, wearing oxygen intermittently, comfortable in no apparent distress. HEAD: Normocephalic/atraumatic. EYES: Normal reaction of pupils, equal size. Conjunctiva pink, sclera white. NOSE: Clear with pink turbinates. THROAT: No erythema or exudates. NECK: No masses, no JVD, no thyroid enlargement, no adenopathy. CHEST: No chest wall deformity. Symmetrical expansion. LUNGS: Equal air entry with prolongation of expiratory phase of breathing, diminished breath sounds, congested cough CVS: Regular rate and rhythm, normal S1 and S2, no gallops, no murmurs, no rubs ABDOMEN: Soft, nontender. No hepatosplenomegaly, normal bowel sounds, no guarding or rigidity. EXTREMITIES: No clubbing, no edema, no cyanosis, 2+ pulses and upper and lower extremities. MUSCULOSKELETAL: Muscle strength and tone normal. SPINE: No scoliosis or deformity SKIN: No rashes CENTRAL NERVOUS SYSTEM: Alert and oriented -3. No focal deficits, tone is normal in all 4 extremities. PSYCHIATRIC: Alert and oriented -3. Appropriate affect. Intact judgment and insight. - Labs CBC & Chem 7: 03/27/19 13:40 03/27/19 13:40 Labs: Abnormal Lab Results - Last 24 Hours (Table) 03/28/19 Range/Units 11:00 Stool Lactoferrin POSITIVE H (NEGATIVE) Assessment and Plan Plan: #1. Acute exacerbation of mild intermittent bronchial asthma, with tracheobronchitis #2. History of exercise-induced bronchial asthma, symptoms were well-controlled and patient is only maintained on the rescue inhaler never intubated or hospitalized for asthma attack #3. Diarrhea 1 week, C. diff was negative #4. never smoker #5. Mild anion gap metabolic acidosis, present on admission, patient was given IV fluids Plan Clinically improving. Continue same treatment. She is still cough and she is quite congested along with her cough. I will suggest giving her guaifenesin with codeine to suppress her cough. Continued IV Solu-Medrol. Continue bronchodilators. Continue Pulmicort Respules. We'll continue to follow.
--- NOTE | 2019-03-29 16:22 | P.PN ---
Subjective Progress Note Date: 03/29/19 Principal diagnosis: 23-year-old female is admitted for asthma exacerbation was having shortness of breath and cough for the past week patient received IV steroids with significant improvement patient has good air entry but does have significant cough. Patient also is complaining of multiple other symptoms including diarrhea which has been going on for about 3 weeks and the patient say she was having loose bowel movements about 2-3 an hour at although patient is not clinically dehydrated as patient is quite a bit concerned about the diarrhea after and a C. diff testing which was negative patient influenza was negative. Patient denied any recent flulike symptoms patient denied any recent travel patient was on antibiotics Z- Saeed in the past presently not on any medications here. Patient had about 1-2 episodes of asthma exacerbation year. Patient does have eosinophilia although mild. Patient will be started on massive stabilizer and steroids along with inhaled steroids and the rescue inhaler and can be discharged today or tomorrow. Although patient prefers to have gastroenterology evaluation here because of which gastric body was consulted here will watch her here today patient will be started on Bentyl as her C. diff is negative my suspicion for other infectious colitis is low considering her duration of symptoms because of which I'll start her on symptomatically treatment with Bentyl. Patient is complaining of yellowish sputum production although patient has inflammatory bronchitis because of which I do not believe patient will require antibiotics and patient steroids will be switched to oral today. Patient does have significant cough which appears to be most bothersome to the patient at this time and patient will be started on symptomatically treatment for that. 03/29/2019 Patient is sitting up in the bed with family at the bedside in no acute distress. Patient continues to have a cough when taking deep breaths. Patient continues to be quite wheezy. Patient was having a lot of diarrhea last night and states that she had one episode of diarrhea again this morning. Lactoferrin stool was positive. C. diff and Giardia were negative. Patient states that she is nervous to go home as she feels slightly better but is continuing to have some shortness of breath with coughing spells. Pulmonary is following. Objective - Vital Signs Vital signs: Vital Signs Temp 98.4 F 03/29/19 13:53 Pulse 77 03/29/19 13:53 Resp 16 03/29/19 13:53 BP 114/70 12/20/19 13:53 Pulse Ox 94 L 03/29/19 13:53 Intake & Output 03/28/19 03/29/19 03/29/19 18:59 06:59 18:59 Intake Total 20 540 Balance 20 540 Intake: Intake, IV Titration 40 Amount Sodium Chloride 0.9% 1, 40 000 ml @ 10 mls/hr IV . Q24H [facility] Rx#:[id number] Oral 20 500 Other: Voiding Method Toilet Toilet # Voids 3 2 # Bowel Movements 6 - Exam GENERAL: The patient is alert and oriented x3, patient is in mild distress because of coughing. Well developed, well nourished. HEENT: Pupils are round and equally reacting to light. EOMI. No scleral icterus. No conjunctival pallor. Normocephalic, atraumatic. No pharyngeal erythema. No thyromegaly. CARDIOVASCULAR: S1 and S2 present. No murmurs, rubs, or gallops. PULMONARY: Chest is clear to auscultation, mild wheezing noted with no rhonchi or crackles. ABDOMEN: Soft, nontender, nondistended, normoactive bowel sounds. No palpable organomegaly. MUSCULOSKELETAL: No joint swelling or deformity. EXTREMITIES: No cyanosis, clubbing, or pedal edema. NEUROLOGICAL: Gross neurological examination did not reveal any focal deficits. SKIN: No rashes. - Labs CBC & Chem 7: 03/27/19 13:40 03/27/19 13:40 Labs: Abnormal Lab Results - Last 24 Hours (Table) 03/28/19 Range/Units 11:00 Stool Lactoferrin POSITIVE H (NEGATIVE) Microbiology - Last 24 Hours (Table) 03/28/19 11:00 Stool Culture - Preliminary Stool Assessment and Plan Assessment: -Acute exacerbation of asthma: Patient has significant improvement continue with inhalational treatments patient will be continue with IV steroids probably can be discharged tomorrow. Patient will benefit from outpatient pulmonary function testing. 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 Patient will not require any antibiotics patient bronchitis is ALLERGIC. Patient oxygen will be tapered down. Patient is currently on room air and continues to have some mild wheezing with cough. -Subacute to chronic diarrhea: Patient will definitely need to workup as an outpatient since her C. diff is negative patient will be started on symptomatically treatment and the workup will be started here with stool WBC stool culture and Giardia patient to may need colonoscopy if she continues to have diarrhea as an outpatient patient was started on Bentyl will monitor for today we'll leave her on IV fluids possibility of discharge tomorrow. Eosinophilic colitis is a consideration. -Leukocytosis reactive -Tachycardia probably because of asthma or breathing treatments. We'll obtain an EKG and a TSH. TSH was within normal limits GI prophylaxis with Pepcid and DVT prophylaxis ambulation Plan: Patient will continue on IV steroids and bronchodilators at this time. Pulmonary is following closely. Patient states that her diarrhea has somewhat improved and only had one episode today. C. diff and Giardia were negative. Patient states that she follows with Dr. Jayshree paulino in the outpatient setting but usually just goes to a clinic in [place] and hasn't followed up with her primary care provider in months. Discussed with her about the importance of keeping follow-up appointments with her primary care provider for proper management of her medical conditions. Patient stated she verbalized understanding. Probable discharge in 24 hours.
[2019-03-29 21:06] LABS: Glucose,Whole Blood 140 mg/dL (75-99)
[2019-03-29] MEDS: SODIUM CHLORIDE 0.9% 1,000 ML IV SCH (23:07)
--- NOTE | 2019-03-29 23:25 | P.PN ---
Subjective Progress Note Date: 03/29/19 Principal diagnosis: Diarrhea Patient seen lying in bed reporting she is tolerating her diet. Only 1 loose bowel movement today. She feels her symptoms are improved. Objective - Vital Signs Vital signs: Vital Signs Temp 98.4 F 03/29/19 13:53 Pulse 76 03/29/19 16:21 Resp 16 03/29/19 13:53 BP 114/70 03/29/19 13:53 Pulse Ox 94 L 03/29/19 13:53 Intake & Output 03/28/19 03/29/19 03/29/19 18:59 06:59 18:59 Intake Total 20 540 Balance 20 540 Intake: Intake, IV Titration 40 Amount Sodium Chloride 0.9% 1, 40 000 ml @ 10 mls/hr IV . Q24H [facility] Rx#:[id number] Oral 20 500 Other: Voiding Method Toilet Toilet # Voids 3 2 # Bowel Movements 6 - Exam On physical examination, patient appears comfortable in no apparent distress. HEAD: Normocephalic, atraumatic. EYES: No scleral icterus. No conjunctival injection. MOUTH: No lesions, tongue midline. NECK: Trachea midline, no gross abnormalities. ABDOMEN: Soft, obese. Bowel sounds are positive. No organomegaly. No guarding or rigidity. EXTREMITIES: No pedal edema. SKIN: No rashes, no jaundice. NEUROLOGIC: Alert and oriented x3. No focal deficits. - Labs CBC & Chem 7: 03/27/19 13:40 03/27/19 13:40 Labs: Abnormal Lab Results - Last 24 Hours (Table) 03/28/19 Range/Units 11:00 Stool Lactoferrin POSITIVE H (NEGATIVE) Microbiology - Last 24 Hours (Table) 03/28/19 11:00 Stool Culture - Preliminary Stool Assessment and Plan (1) Diarrhea Narrative/Plan: 23-year-old female with a medical history significant for asthma presented to the hospital due to shortness of breath and cough and is currently being treated for pulmonary issues who reported 3 weeks of loose stool. Previously the patient had issues with constipation. No prior endoscopic evaluation. No blood per rectum. No nighttime symptoms reported. Testing for Clostridium difficile was negative. She denied any sick contacts, antibiotics, unusual foods or travel prior to developing the symptoms. Unclear etiology of symptoms, may be functional in etiology, further stool studies are ordered to rule out infectious process. Inflammatory markers including CRP and ESR normal. TSH within normal limits. Testing for Giardia negative. Current Visit: Yes Status: Acute Code(s): R19.7 - DIARRHEA, UNSPECIFIED SNOMED Code(s): 47658550 Plan: Supportive care Okay for diet as tolerated Testing for Clostridium difficile noted ESR and CRP within normal limits Okay for antidiarrheals as needed Continue current medical treatment of other medical comorbidities, including asthma No plan for endoscopic evaluation at this time If diarrhea persists patient can follow-up after discharge with the gastroenterology clinic Thank you for allowing us to participate in the care of the patient, the GI service will stand by, please call us back with any questions or concerns
[2019-03-30] MEDS: methylPREDNISolone SOD SUCCI 125 MG/2 ML VIAL IV SCH ×3 (00:09→11:44)
[2019-03-30] MEDS: FAMOTIDINE 20 MG/2 ML VIAL IV SCH ×2 (00:09→08:15)
[2019-03-30] MEDS: BUDESONIDE 1 MG/2 ML NEBU INHALATION SCH (07:12)
[2019-03-30] MEDS: ALBUTEROL NEBULIZED 2.5 MG/3 ML INHALATION SCH ×3 (07:12→15:29)
[2019-03-30 08:04] VITALS: RESP 16
[2019-03-30] MEDS: guaiFENesin 600 MG TABLET.ER PO SCH (08:15)
[2019-03-30] MEDS: HEPARIN SODIUM,PORCINE 5,000 UNIT/ML 1 ML VIAL SQ SCH (08:16)
--- NOTE | 2019-03-30 14:51 | P.PN ---
Subjective Progress Note Date: 03/30/19 this is a 23-year-old white female patient of Dr. Jayshree Jaramillo, with past medica l history of exercise induced chronic bronchial asthma, mild intermittent, patient is usually only on Ventolin rescue inhaler. patient came into the hospital on 03/27/2019 with complaints of worsening shortness of breath, and cough over the past week. She was seen in the urgent care the day of her admission, and was advised to come to the emergency department if her breathing got worse. She states over the last week she has been using her rescue inhaler quite frequently, and having nighttime symptoms. She is bringing up some yellow colored phlegm at times, she states she is sweaty. In addition she has been having ongoing diarrhea for a period of about a week, she denies any recent use of antibiotics. Denies any nausea or vomiting. Chest x-ray showed no acute cardiopulmonary process. Patient has been afebrile, but tachycardic, with a heart rate in the 100's-110's. Pulse ox is ranging from 90-94 on room air, and patient has been intermittently wearing to 2 L of supplemental oxygen, lab work was reviewed showing mild leukocytosis, white blood cell count is 13.3, hemoglobin is 14.7, sodium was 140, potassium is 4.9, chloride was 105, CO2 is 21, BUN was 8 creatinine 0.61, test was negative, C. diff was negative, influenza screen was negative. patient received 1 dose of Rocephin in the emergency department, nebulized bronchodilators were started, and IV steroids. Patient was given a liter bolus of IV fluids, and is receiving IV hydration at a rate of 100 ML per hour. Still feels congested and tight, tachycardic and continues with frequent cough. on 03/29/2019 I'm seeing the patient for a follow-up. Clinically improved and she is less short of breath. She was able to sleep all night without having to wake up and cough. However, at a time of my evaluation this morning, she is still congested bronchospastic and wheezy. I think despite her improvement, she may benefit from another day or 2 of inpatient treatment with bronchodilators and steroids. She is less tachycardic compared to yesterday. IV fluids currently is at KVO. On 03/30/2019 I'm seeing the patient for a follow-up. She is slowly improving. Less bronchospastic and wheezy on today's evaluation. Cough is still that ALLERGIC has subsided. Her sinus tachycardia is also subsided. no fever. No chills. No sputum production. We opted to discharge this patient home today on a slow course of a prednisone burst taper Objective - Vital Signs Vital signs: Vital Signs Temp 97.9 F 03/30/19 07:18 Pulse 80 03/30/19 11:10 Resp 16 03/30/19 07:18 BP 118/78 03/30/19 07:18 Pulse Ox 98 03/30/19 07:18 Intake & Output 03/29/19 03/30/19 03/30/19 18:59 06:59 18:59 Intake Total 540 100 Balance 540 100 Intake: Intake, IV Titration 40 Amount Sodium Chloride 0.9% 1, 40 000 ml @ 10 mls/hr IV . Q24H [facility] Rx#:[id number] Oral 500 100 Other: Voiding Method Toilet Toilet - Exam GENERAL EXAM: Alert, a pleasant, 23-year-old white female patient, on room air, wearing oxygen intermittently, comfortable in no apparent distress. HEAD: Normocephalic/atraumatic. EYES: Normal reaction of pupils, equal size. Conjunctiva pink, sclera white. NOSE: Clear with pink turbinates. THROAT: No erythema or exudates. NECK: No masses, no JVD, no thyroid enlargement, no adenopathy. CHEST: No chest wall deformity. Symmetrical expansion. LUNGS: Equal air entry with prolongation of expiratory phase of breathing, diminished breath sounds, congested cough CVS: Regular rate and rhythm, normal S1 and S2, no gallops, no murmurs, no rubs ABDOMEN: Soft, nontender. No hepatosplenomegaly, normal bowel sounds, no guarding or rigidity. EXTREMITIES: No clubbing, no edema, no cyanosis, 2+ pulses and upper and lower extremities. MUSCULOSKELETAL: Muscle strength and tone normal. SPINE: No scoliosis or deformity SKIN: No rashes CENTRAL NERVOUS SYSTEM: Alert and oriented -3. No focal deficits, tone is normal in all 4 extremities. PSYCHIATRIC: Alert and oriented -3. Appropriate affect. Intact judgment and insight. - Labs CBC & Chem 7: 03/27/19 13:40 03/27/19 13:40 Labs: Abnormal Lab Results - Last 24 Hours (Table) 03/29/19 Range/Units 21:04 POC Glucose (mg/dL) 140 H (75-99) mg/dL Microbiology - Last 24 Hours (Table) 03/28/19 11:00 Stool Culture - Preliminary Stool Assessment and Plan Plan: #1. Acute exacerbation of mild intermittent bronchial asthma, with tracheobronchitis #2. History of exercise-induced bronchial asthma, symptoms were well-controlled and patient is only maintained on the rescue inhaler never intubated or hospitalized for asthma attack #3. Diarrhea 1 week, C. diff was negative #4. never smoker #5. Mild anion gap metabolic acidosis, present on admission, patient was given IV fluids Plan Clinically improving. She'll the patient home on Symbicort, prednisone burst taper starting with 40 mg to be tapered by 10 mg every 5 days a total of 20 day course and albuterol nebulized treatments around the clock 4 times a day. I'm going to see her in the office regarding her asthma I will make further recommendations based on her progress.
[2019-03-30 15:08] VITALS: BP 115/74; TEMP 97.8
[2019-03-30 15:44] VITALS: PULSE 84
[2019-03-30] MEDS ORDERED: FAMOTIDINE 20 MG TAB PO SCH (21:00)
--- NOTE | 2019-03-31 09:46 | P.DS ---
Providers Date of admission: 03/30/19 09:15 Expected date of discharge: 03/30/19 Attending physician: Alexey Travis MD Consults: 03/27/19 17:59 Consult Physician Stat Consulting Provider: Lisa Flores Consult Reason/Comments: asthma exacerbation Do you want consulting provider notified?: Yes Primary care physician: [facility] Course: 23-year-old female is admitted for asthma exacerbation was having shortness of breath and cough for the past week patient received IV steroids with significant improvement patient has good air entry but does have significant cough. Patient also is complaining of multiple other symptoms including diarrhea which has been going on for about 3 weeks and the patient say she was having loose bowel movements about 2-3 an hour at although patient is not clinically dehydrated as patient is quite a bit concerned about the diarrhea after and a C. diff testing which was negative patient influenza was negative. Patient denied any recent flulike symptoms patient denied any recent travel patient was on antibiotics Z- Saeed in the past presently not on any medications here. Patient had about 1-2 episodes of asthma exacerbation year. Patient does have eosinophilia although mild. Patient will be started on massive stabilizer and steroids along with inhaled steroids and the rescue inhaler and can be discharged today or tomorrow. Although patient prefers to have gastroenterology evaluation here because of which gastric body was consulted here will watch her here today patient will be started on Bentyl as her C. diff is negative my suspicion for other infectious colitis is low considering her duration of symptoms because of which I'll start her on symptomatically treatment with Bentyl. Patient is complaining of yellowish sputum production although patient has inflammatory bronchitis because of which I do not believe patient will require antibiotics and patient steroids will be switched to oral today. Patient does have significant cough which appears to be most bothersome to the patient at this time and patient will be started on symptomatically treatment for that. 03/29/2019 Patient is sitting up in the bed with family at the bedside in no acute distress. Patient continues to have a cough when taking deep breaths. Patient continues to be quite wheezy. Patient was having a lot of diarrhea last night and states that she had one episode of diarrhea again this morning. Lactoferrin stool was positive. C. diff and Giardia were negative. Patient states that she is nervous to go home as she feels slightly better but is continuing to have some shortness of breath with coughing spells. Pulmonary is following. 03/30/2019 Patient was describing an episode of shortness of breath earlier today morning although patient has very minimally is hemodynamically stable patient is not requiring oxygen and ambulating without any desaturation patient can be discharged if cleared by pulmonary for discuss with pulmonary. Her cough improved. Her diarrhea and cramping resolved GENERAL: The patient is alert and oriented x3, patient is in mild distress because of coughing. Well developed, well nourished. HEENT: Pupils are round and equally reacting to light. EOMI. No scleral icterus. No conjunctival pallor. Normocephalic, atraumatic. No pharyngeal erythema. No thyromegaly. CARDIOVASCULAR: S1 and S2 present. No murmurs, rubs, or gallops. PULMONARY: Chest is clear to auscultation, mild wheezing noted with no rhonchi or crackles. ABDOMEN: Soft, nontender, nondistended, normoactive bowel sounds. No palpable organomegaly. MUSCULOSKELETAL: No joint swelling or deformity. EXTREMITIES: No cyanosis, clubbing, or pedal edema. NEUROLOGICAL: Gross neurological examination did not reveal any focal deficits. SKIN: No rashes. Assessment and Plan Assessment: -Acute exacerbation of asthma: Patient has significant improvement continue with inhalational treatments patient will be discharged with the mast cell stabilizers and oral steroids will not require antibiotics at this time -Subacute to chronic diarrhea: Probably symptomatic treatment with Bentyl patient will be prescribed Bentyl and the patient will be discharged with follow-up with the gastroenterology all the workup so far here including C. diff is negative, does have positive stool lactoferrin may need colonoscopy if she continues to have the symptoms stool Giardia is negative -Leukocytosis reactive -Tachycardia due to the breathing treatments Patient Condition at Discharge: Stable Plan - Discharge Summary New Discharge Prescriptions: New predniSONE 10 mg PO DAILY #30 tab Mometasone/Formoterol [Dulera 100 Mcg/5 Mcg Inhaler] 2 puff INHALATION BID #1 inhaler guaiFENesin-Coden 100-10MG/5ML [Robitussin AC] 10 ml PO TID PRN #90 ml PRN Reason: Cough Dicyclomine [Bentyl] 10 mg PO QID PRN #60 capsule PRN Reason: Diarrhea Famotidine [Pepcid] 20 mg PO BID #20 tablet Montelukast [Singulair] 10 mg PO DAILY #30 tab Continue Albuterol Inhaler [Ventolin Hfa Inhaler] 1 - 2 puff INHALATION RT-Q4H PRN PRN Reason: Shortness Of Breath Discontinued predniSONE 50 mg PO DAILY Azithromycin [Zithromax Z-pack] See Taper PO DAILY Discharge Medication List Albuterol Inhaler [Ventolin Hfa Inhaler] 1 - 2 puff INHALATION RT-Q4H PRN 03/27/19 [History] Dicyclomine [Bentyl] 10 mg PO QID PRN #60 capsule 03/28/19 [Rx] Famotidine [Pepcid] 20 mg PO BID #20 tablet 03/28/19 [Rx] Mometasone/Formoterol [Dulera 100 Mcg/5 Mcg Inhaler] 2 puff INHALATION BID #1 inhaler 03/28/19 [Rx] Montelukast [Singulair] 10 mg PO DAILY #30 tab 03/28/19 [Rx] guaiFENesin-Coden 100-10MG/5ML [Robitussin AC] 10 ml PO TID PRN #90 ml 03/28/19 [Rx] predniSONE 10 mg PO DAILY #30 tab 03/28/19 [Rx] Follow up Appointment(s)/Referral(s): Jayshree Jaramillo MD [Primary Care Provider] - 3 Days Lisa Flores MD [STAFF PHYSICIAN] - 04/11/19 3:00 pm (Breathing test Followed by seeing Desiree Barcenas) Bill Magaña MD [STAFF PHYSICIAN] - 04/18/19 4:15 pm Patient Instructions/Handouts: Asthma (DC), Asthma (GEN) Discharge Disposition: HOME SELF-CARE
== END 2019-03-30 16:26 | disposition home or self-care (01) | DRG 202 ==
LOC: EC 12:03 → 4SSUR 19:22 → OBSVTOIN 03-30 09:15
PROVIDERS: ADMIT Internal Medicine; ATTEND Internal Medicine
DX: J45.21 Mild intermittent asthma with (acute) exacerbation (principal); E87.2 Acidosis; D72.1 Eosinophilia; R19.7 Diarrhea, unspecified; Z79.51 Long term (current) use of inhaled steroids; Z79.899 Other long term (current) drug therapy
CPT/HCPCS: 36415; 71046; 80053; 81025; 83630; 83735; 84443; 84703; 85025; 85652; 86140; 87045; 87046; 87324; 87329; 87502; 93005; 94640; 94760; 96361; 96365; 96375; 96376; 99285

== ENCOUNTER → 2019-06-10 | Outpatient (CLI) | payer OTHER ==
[2019-06-10 17:43] LABS: Basophils % (A) 1 %; Eosinophils # (A) 0.4 k/uL (0-0.7); Eosinophils % (A) 6 %; HCT 40.7 % (34.0-46.0); HGB 13.2 gm/dL (11.4-16.0); Lymphocytes % (A) 25 %; MCH 30.1 pg (25.0-35.0); MCHC 32.5 g/dL (31.0-37.0); MCV 92.6 fL (80.0-100.0); Mean Platelet Volume 6.9; Monocytes # (A) 0.5 k/uL (0-1.0); Monocytes % (A) 6 %; Neutrophils # (A) 4.7 k/uL (1.3-7.7); Neutrophils % (A) 61 %; Platelet Count 368 k/uL (150-450); RBC 4.39 m/uL (3.80-5.40); RDW 13.1 % (11.5-15.5); WBC 7.8 k/uL (3.8-10.6)
[2019-06-10 21:04] LABS: Erythrocyte Sedimentation Rate 25 mm/hr (0-20)
[2019-06-11 00:07] LABS: ALT 29 U/L (8-44); AST 25 U/L (13-35); Alkaline Phosphatase 89 U/L (41-126); BUN/Creat Ratio 13.33 Ratio (12.00-20.00); C Reactive Protein <0.4 mg/dL (0.0-0.8); Calcium 9.8 mg/dL (8.7-10.3); Chloride 105 mmol/L (96-109); Glucose 90 mg/dL (70-110); Non-African American GFR(CKD) 130.3 (60.0-200.0); Potassium 4.2 mmol/L (3.5-5.5); Sodium 141 mmol/L (135-145); Total Bilirubin 0.8 mg/dL (0.3-1.2); Total Protein 6.8 g/dL (6.2-8.2)
== END | disposition home or self-care (01) ==
LOC: LABWHC1 09:47
PROVIDERS: ATTEND Internal Medicine
DX: R19.7 Diarrhea, unspecified (principal)
CPT/HCPCS: 36415; 80053; 83630; 83993; 84439; 84443; 85025; 85652; 86140; 87045; 87046; 87328; 87329

== ENCOUNTER 2019-06-11 09:02 | Day surgery (SDC) | payer OTHER ==
[2019-06-10 12:12] VITALS: BMI 25.7
[~2019-06-11 09:02] MED LIST changes: -DEXAMETHASONE SOD PHOSPHATE 10 MG/ML 1 ML VIAL IV ONE; +LIDOCAINE 1% (10MG/ML) FOR IV START INTRADERMA PRN; -MIDAZOLAM 2 MG/2 ML VIAL IV PRN; -ONDANSETRON 4 MG/2 ML VIAL IVP ONE; -SCOPOLAMINE 1.5MG/72HR PATCH TRANSDERM ONE; -ceFAZolin 2 GM in SODIUM CHLORIDE 0.9% 100 ML IVPB ONE
[2019-06-11 09:23] VITALS: TEMP 98.7
[2019-06-11] MEDS ORDERED: LIDOCAINE 1% INJ 10MG/ML (20 ML MDV) ONE (10:05)
[2019-06-11] MEDS ORDERED: fentaNYL (PF) 50 MCG/ML 2 ML AMP ONE (10:05)
[2019-06-11] MEDS ORDERED: PROPOFOL 10 MG/ML 20 ML VIAL IV ONE (10:05)
[2019-06-11] MEDS ORDERED: MIDAZOLAM 2 MG/2 ML VIAL ONE (10:05)
--- NOTE | 2019-06-11 10:52 | P.PCN ---
Date of Procedure: 06/11/19 Description of Procedure: Brief history: Patient is a pleasant scheduled for an elective upper endoscopy as well as colonoscopy as a part of evaluation of GERD and change in bowel habits. Patient continued in the clinic constipation and diarrhea as well as frequent reflux. She is seen today for further evaluation. No prior endoscopic evaluation. Procedure performed: Esophagogastroduodenoscopy with biopsy Colonoscopy with biopsy Estimated blood loss: Minimal. Preoperative diagnosis: GERD, change in bowel habits Anesthesia: MAC Procedure: After informed consent was obtained from the patient was brought into the endoscopy unit and IV sedation was administered by anesthesia under continuous monitoring. Initially upper endoscopy was done. The Olympus GF 190 video endoscope was inserted into the mouth and esophagus intubated without any difficulty and was gradually advanced into the stomach and duodenum and carefully examined. The bulb and second part of the duodenum appeared normal, with biopsies taken to rule out celiac sprue. The scope was then withdrawn into the stomach adequately insufflated with air and upon careful examination the antrum and body, cardia and fundus appeared normal, with some mild scattered erythema in the antrum body suggestive of mild gastritis biopsies taken. The scope was then withdrawn into the esophagus. The GE junction was located at 35 cm to the incisors and appeared normal with biopsies taken. It appeared regular with no erythema erosions or ulcerations. Rest of the esophagus appeared normal. Patient tolerated the procedure well. At this time the patient continued to remain sedation. Initial digital rectal examination was normal. Olympus CF 190 video colonoscope was then inserted into the rectum and gradually advanced to the cecum without any difficulty. Careful examination was performed as the scope was gradually being withdrawn. The prep was excellent. The cecum, ascending colon, transverse colon, descending colon, sigmoid colon and rectum appeared normal, with biopsies taken of the right and left colon in the setting of altered bowel function. Terminal ileum was also intubated and appeared normal with biopsies taken. Retroflexion was performed in the rectum and no lesions were noted, low-grade internal hemorrhoids. Patient tolerated the procedure well. Impression: 1. Mild gastritis antrum and body, biopsied. Biopsies of the duodenum GE junction. 2. Normal-appearing colon from rectum to cecum and normal appearing terminal ileum with biopsies of the right colon, left colon and terminal ileum taken in the setting of altered bowel function. Low-grade internal hemorrhoids. Recommendations: Findings of this examination were discussed with the patient as well as her mother. Okay to resume diet. Okay to resume medication. Await pathology from biopsies. Follow up in gastroenterology clinic as previously scheduled.
[2019-06-11 11:17] VITALS: BP 101/68; PULSE 68; RESP 18
== END 2019-06-11 12:00 | disposition home or self-care (01) ==
LOC: ORWHC2ENDO 09:02
PROVIDERS: ATTEND Internal Medicine
DX: K21.0 Gastro-esophageal reflux disease with esophagitis (principal); K29.50 Unspecified chronic gastritis without bleeding; R19.4 Change in bowel habit; K59.00 Constipation, unspecified; R19.7 Diarrhea, unspecified; K64.8 Other hemorrhoids; J45.909 Unspecified asthma, uncomplicated; Z79.899 Other long term (current) drug therapy; Z98.890 Other specified postprocedural states; Z87.81 Personal history of (healed) traumatic fracture
CPT/HCPCS: 81025; 88305; 84703; 45380; 43239; J2250; J2001; J3010; J2704

== ENCOUNTER 2021-02-03 12:52 | Observation (INO) | payer OTHER ==
[2021-02-03] MEDS ORDERED: ALBUTEROL NEBULIZED 2.5 MG/3 ML INHALATION STA (13:08)
[2021-02-03] MEDS ORDERED: methylPREDNISolone SOD SUCCI 125 MG/2 ML VIAL IV STA (13:08)
--- NOTE | 2021-02-03 13:34 | ED ---
SOB HPI - General Chief Complaint: Shortness of Breath Stated Complaint: GIULIANA Time Seen by Provider: 02/03/21 12:55 Source: patient, EMS, RN notes reviewed Mode of arrival: EMS Limitations: no limitations - History of Present Illness Initial Comments: This a 25-year-old female presents to emergency department via EMS with chief complaint of shortness of breath. Patient's been having increasing shortness of breath. Patient was swabbed for COVID-19 last night which was negative. Patient states she does have moderate asthma in which she's been doing her breathing treatments with no relief. Patient was given breathing treatment by EMS upon arrival, IV was started. Patient was given oral prednisone but did have some emesis was unable to hold down after she chewed it. Patient denies any fever or chills currently mild nasal congestion. - Related Data Home Medications Medication Instructions Recorded Confirmed Albuterol Inhaler [Ventolin Hfa 2 puff INHALATION RT-Q4H PRN 02/03/21 02/03/21 Inhaler] Albuterol Nebulized [Ventolin 2.5 mg INHALATION RT-TID PRN 02/03/21 02/03/21 Nebulized] Famotidine [Pepcid] 20 mg PO BID 02/03/21 02/03/21 SUMAtriptan succinate [Imitrex] 25 mg PO DAILY PRN 02/03/21 02/03/21 Allergies Allergy/AdvReac Type Severity Reaction Status Date / Time No Known Allergies Allergy Verified 02/03/21 14:01 Review of Systems ROS Statement: Those systems with pertinent positive or pertinent negative responses have been documented in the HPI. ROS Other: All systems not noted in ROS Statement are negative. Past Medical History Past Medical History: Asthma Additional Past Medical History / Comment(s): FX RT ARM, SPLINTED AND SURGERY. PREVIOUS FX OF LEFT ARM AT AGE 7 History of Any Multi-Drug Resistant Organisms: None Reported Past Surgical History: Orthopedic Surgery Past Anesthesia/Blood Transfusion Reactions: No Reported Reaction Additional Past Anesthesia/Blood Transfusion Reaction / Comment(s): NO FAMILY HX OF PROBLEMS Past Alcohol Use History: None Reported - Past Family History Mother Family Medical History: No Reported History General Exam Limitations: no limitations General appearance: alert, in no apparent distress Head exam: Present: atraumatic, normocephalic, normal inspection Eye exam: Present: normal appearance, PERRL, EOMI. Absent: scleral icterus, conjunctival injection, periorbital swelling ENT exam: Present: normal exam, normal oropharynx, mucous membranes moist Neck exam: Present: normal inspection, full ROM. Absent: tenderness, meningismus, lymphadenopathy Respiratory exam: Present: respiratory distress, wheezes, accessory muscle use. Absent: normal lung sounds bilaterally, rales, rhonchi, stridor Cardiovascular Exam: Present: normal rhythm, tachycardia, normal heart sounds. Absent: systolic murmur, diastolic murmur, rubs, gallop, clicks Course Vital Signs 02/03/21 02/03/21 02/03/21 12:53 13:28 13:41 Temperature 97.8 F Pulse Rate 111 H 107 H 103 H Respiratory 18 28 H 30 H Rate Blood Pressure 133/79 O2 Sat by Pulse 94 L Oximetry - Reevaluation(s) Reevaluation #1: 02/03/21 14:32 Patient reevaluated updated and results. Patient had multiple breathing treatments, remains to have diffuse wheezing, shortness of breath, tachypnea. Patient be admitted for IV steroids, pulmonary evaluation, breathing treatments. Medical Decision Making - Medical Decision Making 25-year-old presented for shortness of breath. Patient has acute asthma exacerbation x-rays unremarkable patient tested negative for COVID-19 yesterday. Patient has minimal to no relief after multiple breathing treatments given by EMS and in emergency department. Patient did have IV dose steroids. We'll continuation of steroids, pulmonary consult - Lab Data Result diagrams: 02/03/21 13:27 02/03/21 13:27 Lab Results 02/03/21 02/03/21 Range/Units 13:27 13:27 WBC 8.7 (3.8-10.6) k/uL RBC 4.63 (3.80-5.40) m/uL Hgb 14.3 (11.4-16.0) gm/dL Hct 43.6 (34.0-46.0) % MCV 94.1 (80.0-100.0) fL MCH 31.0 (25.0-35.0) pg MCHC 32.9 (31.0-37.0) g/dL RDW 13.1 (11.5-15.5) % Plt Count 287 (150-450) k/uL MPV 7.0 Neutrophils % 61 % Lymphocytes % 17 % Monocytes % 8 % Eosinophils % 10 % Basophils % 1 % Neutrophils # 5.3 (1.3-7.7) k/uL Lymphocytes # 1.5 (1.0-4.8) k/uL Monocytes # 0.7 (0-1.0) k/uL Eosinophils # 0.9 H (0-0.7) k/uL Basophils # 0.1 (0-0.2) k/uL Sodium 138 (137-145) mmol/L Potassium 3.9 (3.5-5.1) mmol/L Chloride 107 (98-107) mmol/L Carbon Dioxide 20 L (22-30) mmol/L Anion Gap 11 mmol/L BUN 9 (7-17) mg/dL Creatinine 0.60 (0.52-1.04) mg/dL Est GFR (CKD-EPI)AfAm >90 (>60 ml/min/1.73 sqM) Est GFR (CKD-EPI)NonAf >90 (>60 ml/min/1.73 sqM) Glucose 101 H (74-99) mg/dL Calcium 10.2 (8.4-10.2) mg/dL Magnesium 1.9 (1.6-2.3) mg/dL Total Bilirubin 0.9 (0.2-1.3) mg/dL AST 27 (14-36) U/L ALT 26 (4-34) U/L Alkaline Phosphatase 78 (38-126) U/L Total Protein 7.5 (6.3-8.2) g/dL Albumin 4.6 (3.5-5.0) g/dL Disposition Clinical Impression: Asthma exacerbation Disposition: ADMITTED IP TO THIS HOSP Condition: Fair Referrals: Geovani Gorman MD [Primary Care Provider] - 1-2 days
[2021-02-03 13:41] LABS: Basophils # (A) 0.1 k/uL (0-0.2); Basophils % (A) 1 %; Eosinophils # (A) 0.9 k/uL (0-0.7); Eosinophils % (A) 10 %; HCT 43.6 % (34.0-46.0); HGB 14.3 gm/dL (11.4-16.0); Lymphocytes # (A) 1.5 k/uL (1.0-4.8); Lymphocytes % (A) 17 %; MCHC 32.9 g/dL (31.0-37.0); MCV 94.1 fL (80.0-100.0); Monocytes # (A) 0.7 k/uL (0-1.0); Monocytes % (A) 8 %; Neutrophils # (A) 5.3 k/uL (1.3-7.7); Neutrophils % (A) 61 %; Platelet Count 287 k/uL (150-450); RBC 4.63 m/uL (3.80-5.40); RDW 13.1 % (11.5-15.5); WBC 8.7 k/uL (3.8-10.6)
--- NOTE | 2021-02-03 13:56 | XR ---
EXAMINATION TYPE: XR chest 2V DATE OF EXAM: 02/03/2021 COMPARISON: 03/27/2019 INDICATION: Short of breath, asthma, wheezing, chest tightness TECHNIQUE: Frontal and lateral views of the chest are obtained. FINDINGS: The heart size is normal. The pulmonary vasculature is normal. The lungs are clear. IMPRESSION: 1. No acute pulmonary process.
[2021-02-03 13:57] LABS: Potassium 3.9 mmol/L (3.5-5.1)
[2021-02-03 14:00] LABS: ALT 26 U/L (4-34); AST 27 U/L (14-36); African American GFR (CKD) >90 (>60 ml/min/1.73 sqM); Albumin 4.6 g/dL (3.5-5.0); Alkaline Phosphatase 78 U/L (38-126); Anion Gap 11 mmol/L; Blood Urea Nitrogen 9 mg/dL (7-17); Calcium 10.2 mg/dL (8.4-10.2); Carbon Dioxide 20 mmol/L (22-30); Chloride 107 mmol/L (98-107); Glucose 101 mg/dL (74-99); Magnesium 1.9 mg/dL (1.6-2.3); Non-African American GFR(CKD) >90 (>60 ml/min/1.73 sqM); Sodium 138 mmol/L (137-145); Total Bilirubin 0.9 mg/dL (0.2-1.3); Total Protein 7.5 g/dL (6.3-8.2)
[2021-02-03] MEDS ORDERED: NALOXONE 0.4 MG/ML 1 ML VIAL IV PRN (14:36)
[2021-02-03] MEDS ORDERED: ONDANSETRON 4 MG/2 ML VIAL IVP PRN (14:36)
[2021-02-03] MEDS ORDERED: IPRATROPIUM-ALBUTEROL 3 ML NEB INHALATION PRN (14:38)
[2021-02-03] MEDS ORDERED: AZITHROMYCIN 500 MG TAB PO STA (15:59)
[2021-02-03] MEDS: IPRATROPIUM-ALBUTEROL 3 ML NEB INHALATION SCH ×2 (16:11→19:43)
--- NOTE | 2021-02-03 16:40 | P.CNPUL ---
History of Present Illness Consult date: 02/03/21 Requesting physician: Hillary Galeas Reason for consult: asthma Chief complaint: Shortness of breath cough and wheezing History of present illness: This is a 25-year-old female with history of mild persistent asthma, patient is normally on albuterol, and on breo ellipta, being followed by Dr. Flores for her asthma, and the last time she was seen in our office was back in September 2019. Patient was seen in the ER with a few days' history of increased shortness of breath, cough, and wheezing. Patient had a relatively normal chest x-ray. She had negative PCR for COVID-19 infection. X-ray was noted to be relatively unremarkable, no evidence of infiltrate. However the patient continues to have intermittent cough and wheezing. Not improving with bronchodilators, patient is not compliant with her breo, and she has been using her rescue inhaler on the average of at least 2-4 times every single day. After evaluating the patient, I recommended that the patient gets admitted, should be placed on IV Solu-Medrol, bronchodilators in the form of DuoNeb, Pulmicort, Perforomist, and she is already on antibiotics. I have also added Singulair to her treatment. Labs in the ER were basically unremarkable including normal CBC and a relatively normal basic metabolic profile. However I have noted that the patient had 10% eosinophils hence I believe the patient would possibly be a great candidate to be evaluated on outpatient basis for possible fasenra injections. Review of Systems Constitutional: No fever no chills, no weight loss, no fatigue. HEENT: Negative. Pulmonary: As noted in HPI. Cardiac: Negative. GI: Negative. Genitourinary: Negative. Endocrine: Negative. Hematologic: Negative. Psychiatric: Negative. Musculoskeletal: Negative. Skin: Negative. Neurologic: History of migraine cephalgia. Past Medical History Past Medical History: Asthma Additional Past Medical History / Comment(s): FX RT ARM, SPLINTED AND SURGERY. PREVIOUS FX OF LEFT ARM AT AGE 7 History of Any Multi-Drug Resistant Organisms: None Reported Past Surgical History: Orthopedic Surgery Past Anesthesia/Blood Transfusion Reactions: No Reported Reaction Additional Past Anesthesia/Blood Transfusion Reaction / Comment(s): NO FAMILY HX OF PROBLEMS Past Alcohol Use History: None Reported - Past Family History Mother Family Medical History: No Reported History Medications and Allergies Home Medications Medication Instructions Recorded Confirmed Type Albuterol Inhaler [Ventolin Hfa 2 puff INHALATION RT-Q4H PRN 02/03/21 02/03/21 History Inhaler] Albuterol Nebulized [Ventolin 2.5 mg INHALATION RT-TID PRN 02/03/21 02/03/21 History Nebulized] Famotidine [Pepcid] 20 mg PO BID 02/03/21 02/03/21 History SUMAtriptan succinate [Imitrex] 25 mg PO DAILY PRN 02/03/21 02/03/21 History Allergies Allergy/AdvReac Type Severity Reaction Status Date / Time No Known Allergies Allergy Verified 02/03/21 14:01 Physical Exam Vitals: Vital Signs Temp Pulse Resp BP Pulse Ox 02/03/21 16:27 97 24 127/88 95 02/03/21 15:30 96 02/03/21 13:41 103 H 30 H 02/03/21 13:28 107 H 28 H 02/03/21 12:53 97.8 F 111 H 18 133/79 94 L Intake and Output 02/03/21 02/03/21 02/03/21 06:59 14:59 22:59 Other: Weight 61.235 kg Physical Exam revealed a 25-year-old female anxious, in mild distress. Head: Atraumatic normocephalic. HEENT:[Neck is supple.] [No neck masses.] [No thyromegaly.] [No JVD.] Chest: [[employer] chest expansion, diffuse rhonchi and wheezes noted bilaterally. Cardiac Exam: [Normal S1 and S2, no S3 gallop, no murmur.] Abdomen: [Soft, nontender, no megaly, no rebound, no guarding, normal bowel sounds.] Extremities: [No clubbing, no edema, no cyanosis.] Neurological Exam: [No focal neurologic deficit.] Alert oriented 3. Psychiatric: Slightly anxious mood affect and normal mental status examination. Skin: No rashes. Musculoskeletal: No deformities and no limitations in range of motion. 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 History of migraine cephalgia Recommendation: Patient will be admitted, and she'll be placed on multiple bronchodilators, Continue DuoNeb. Continue Pulmicort. Continue Perforomist. Continue Solu-Medrol. Continue pantoprazole. Continue Zithromax, Added Singulair 10 mg at bedtime. On outpatient basis, patient should be considered for possible further evaluation for eosinophilic asthma and she may benefit from fasenra, or nucala injections Resume home meds. We will continue to follow. Time with Patient: Greater than 30
--- NOTE | 2021-02-03 16:51 | P.HPIM ---
History of Present Illness H&P Date: 02/03/21 Chief Complaint: Acute exacerbation of asthma This is a pleasant 25-year-old female who presents with a one-week history of increased shortness of breath. She initially developed a sore throat with upper respiratory symptoms. Patient denies cough. Patient tried to use her inhalers to relieve her symptoms, but they failed to do so. As a result patient came in to [facility] ER for further treatment. Patient admits to feeling chills with hot flashes intermittently. Patient denies recent sick contacts and cold that was negative. Last hospital stay was in 2019 for similar symptoms. Patient continues to feel short of breath despite being on IV ster oids and DuoNeb's. Pulmonary was consulted. Review of Systems A 14 point review systems was assessed and was only positive for those discussed in HPI Past Medical History Past Medical History: Asthma Additional Past Medical History / Comment(s): FX RT ARM, SPLINTED AND SURGERY. PREVIOUS FX OF LEFT ARM AT AGE 7 History of Any Multi-Drug Resistant Organisms: None Reported Past Surgical History: Orthopedic Surgery Past Anesthesia/Blood Transfusion Reactions: No Reported Reaction Additional Past Anesthesia/Blood Transfusion Reaction / Comment(s): NO FAMILY HX OF PROBLEMS Past Alcohol Use History: None Reported - Past Family History Mother Family Medical History: No Reported History Medications and Allergies Home Medications Medication Instructions Recorded Confirmed Type Albuterol Inhaler [Ventolin Hfa 2 puff INHALATION RT-Q4H PRN 02/03/21 02/03/21 History Inhaler] Albuterol Nebulized [Ventolin 2.5 mg INHALATION RT-TID PRN 02/03/21 02/03/21 History Nebulized] Famotidine [Pepcid] 20 mg PO BID 02/03/21 02/03/21 History SUMAtriptan succinate [Imitrex] 25 mg PO DAILY PRN 02/03/21 02/03/21 History Allergies Allergy/AdvReac Type Severity Reaction Status Date / Time No Known Allergies Allergy Verified 02/03/21 14:01 Physical Exam Osteopathic Statement: *. No significant issues noted on an osteopathic structural exam other than those noted in the History and Physical/Consult. Vitals: Vital Signs Temp Pulse Resp BP Pulse Ox 02/03/21 13:41 103 H 30 H 02/03/21 13:28 107 H 28 H 02/03/21 12:53 97.8 F 111 H 18 133/79 94 L Intake and Output 02/03/21 02/03/21 02/03/21 06:59 14:59 22:59 Other: Weight 61.235 kg General: [non toxic], [no distress], [appears at stated age] Derm: [warm], [dry] Head: [atraumatic], [normocephalic], [symmetric] Eyes: [EOMI], [no lid lag], [anicteric sclera] Mouth: [no lip lesion], [mucus membranes moist] Cardiovascular: [Tachycardic], [no murmur], [positive posterior tibial pulse bilateral], Lungs: [CTA bilateral], [bilateral expiratory wheeze] , [no accessory muscle use] Abdominal: [soft], [ nontender to palpation], [no guarding], [no appreciable organomegaly] Ext: [no gross muscle atrophy], [no edema], [no contractures] Neuro: [ CN II-XI grossly intact], [no focal neuro deficits] Psych: [Alert], [oriented], [appropriate affect] Results CBC & Chem 7: 02/03/21 13:27 02/03/21 13:27 Labs: Abnormal Lab Results - Last 24 Hours (Table) 02/03/21 02/03/21 Range/Units 13:27 13:27 Eosinophils # 0.9 H (0-0.7) k/uL Carbon Dioxide 20 L (22-30) mmol/L Glucose 101 H (74-99) mg/dL Assessment and Plan Assessment: 1. Acute asthma exacerbation Solu-Medrol 60mg every 6 hours Duo nebs every 4 hours Azithromycin added Pulmonary recs appreciated Vitals every 4 hours check ABG 2. GI DVT prophylaxis 3. AM labs Patient is a full code Anticipated length of stay more than 2 midnights Time with Patient: Greater than 30
[2021-02-03] MEDS: AZITHROMYCIN 250 MG TAB PO SCH (17:33)
[2021-02-03] MEDS: methylPREDNISolone SOD SUCCI 125 MG/2 ML VIAL IV SCH ×2 (17:33→23:26)
[2021-02-03 18:11] LABS: VBG PH 7.37 (7.31-7.41)
[2021-02-03] MEDS ORDERED: CALCIUM CARBONATE 500 MG CHEWABLE PO PRN (18:47)
[2021-02-03] MEDS: BUDESONIDE 1 MG/2 ML NEBU INHALATION SCH (19:43)
[2021-02-03] MEDS: FORMOTEROL FUMARATE 20 MCG/2 ML NEBU INHALATION SCH (19:43)
[2021-02-03] MEDS: MONTELUKAST 10 MG TAB PO SCH (20:39)
[2021-02-03] MEDS ORDERED: ALPRAZolam 0.5 MG TAB PO PRN (20:52)
[2021-02-04] MEDS: methylPREDNISolone SOD SUCCI 125 MG/2 ML VIAL IV SCH ×4 (05:07→23:07)
[2021-02-04] MEDS: FORMOTEROL FUMARATE 20 MCG/2 ML NEBU INHALATION SCH ×2 (07:39→20:03)
[2021-02-04] MEDS: BUDESONIDE 1 MG/2 ML NEBU INHALATION SCH ×2 (07:39→20:03)
[2021-02-04] MEDS: IPRATROPIUM-ALBUTEROL 3 ML NEB INHALATION SCH ×4 (07:39→20:04)
[2021-02-04] MEDS: ACETAMINOPHEN TAB 325 MG TAB PO PRN ×2 (08:27→18:14)
[2021-02-04] MEDS: PANTOPRAZOLE 40 MG/10 ML VIAL IV SCH (08:28)
[2021-02-04 11:05] LABS: Basophils # (A) 0.01 X 10*3/uL (0.00-0.10); Basophils % (A) 0.1 %; Eosinophils # (A) 0 X 10*3/uL (0.04-0.35); Eosinophils % (A) 0 %; HCT 43.6 % (37.2-46.3); HGB 14.4 g/dL (12.0-15.0); Lymphocytes # (A) 0.65 X 10*3/uL (0.90-5.00); Lymphocytes % (A) 4.1 %; MCH 30.1 pg (27.0-32.0); Mean Platelet Volume 9.7 fL (9.5-12.2); Monocytes # (A) 0.35 X 10*3/uL (0.20-1.00); Monocytes % (A) 2.2 %; Neutrophils # (A) 14.91 X 10*3/uL (1.80-7.70); Neutrophils % (A) 93.2 %; Platelet Count 343 X 10*3/uL (140-440); RBC 4.79 X 10*6/uL (4.10-5.20); RDW 13.7 % (11.5-14.5); WBC 15.99 X 10*3/uL (4.50-10.00)
[2021-02-04 11:09] LABS: Phosphorus 4.9 mg/dL (2.4-5.1)
[2021-02-04 11:10] LABS: African American GFR (CKD) 141.5 (60.0-200.0); Albumin/Globulin Ratio 2.08 (1.60-3.17); Anion Gap 19.2 mmol/L (4.00-12.00); Blood Urea Nitrogen 10.5 mg/dL (9.0-27.0); Calcium 10.4 mg/dL (8.7-10.3); Carbon Dioxide 13.8 mmol/L (21.6-31.8); Globulin 2.4 g/dL (1.6-3.3); Magnesium 2.2 mg/dL (1.5-2.4); Non-African American GFR(CKD) 122.1 (60.0-200.0); Potassium 4.7 mmol/L (3.5-5.5); Total Bilirubin 0.8 mg/dL (0.30-1.20); Total Protein 7.4 g/dL (6.2-8.2)
[2021-02-04] MEDS: AZITHROMYCIN 250 MG TAB PO SCH (12:05)
--- NOTE | 2021-02-04 13:07 | P.PN ---
Subjective Progress Note Date: 02/04/21 Principal diagnosis: Acute exacerbation of mild persistent bronchial asthma This is a 25-year-old female with history of mild persistent asthma, patient is normally on albuterol, and on breo ellipta, being followed by Dr. Flores for her asthma, and the last time she was seen in our office was back in September 2019. Patient was seen in the ER with a few days' history of increased shortness of breath, cough, and wheezing. Patient had a relatively normal chest x-ray. She had negative PCR for COVID-19 infection. X-ray was noted to be relatively unremarkable, no evidence of infiltrate. However the patient continues to have intermittent cough and wheezing. Not improving with bronchodilators, patient is not compliant with her breo, and she has been using her rescue inhaler on the average of at least 2-4 times every single day. After evaluating the patient, I recommended that the patient gets admitted, should be placed on IV Solu-Medrol, bronchodilators in the form of DuoNeb, Pulmicort, Perforomist, and she is already on antibiotics. I have also added Singulair to her treatment. Labs in the ER were basically unremarkable including normal CBC and a relatively normal basic metabolic profile. However I have noted that the patient had 10% eosinophils hence I believe the patient would possibly be a great candidate to be evaluated on outpatient basis for possible Fasenra injections. On 02/04/2021 patient seen in follow-up on the general medical surgical floor, patient remains on 3 L of oxygen pulse ox is 89-90 and 94%. Afebrile, still slightly tachycardic, breathing little easier, but still tight and wheezy. Her chest x-ray showed no acute pulmonary process. Today's labs have been reviewed, her white blood cell count is up to 15.9 likely related to IV steroids, hemoglobin is 14.4, sodium is 138, potassium is 4.7, chloride is 105, CO2 is 13, BUN is 10, creatinine 0.7, COVID-19 PCR was negative. Patient's currently on nebulized DuoNeb, Pulmicort and Perforomist, IV Solu-Medrol 60 mg every 6 hours, Singulair, and azithromycin. Objective - Vital Signs Vital signs: Vital Signs Temp 98.3 F 02/04/21 06:52 Pulse 116 H 02/04/21 11:16 Resp 19 02/04/21 06:52 BP 134/85 02/04/21 06:52 Pulse Ox 89 L 02/04/21 07:41 Intake & Output 02/03/21 02/04/21 02/04/21 18:59 06:59 18:59 Weight 61.235 kg Other: Voiding Method Toilet # Voids 1 1 - Exam GENERAL EXAM: Alert, very pleasant, 25-year-old white female, on 3 L of oxygen with pulse ox of 89-90% comfortable in no apparent distress. HEAD: Normocephalic/atraumatic. EYES: Normal reaction of pupils, equal size. Conjunctiva pink, sclera white. NOSE: Clear with pink turbinates. THROAT: No erythema or exudates. NECK: No masses, no JVD, no thyroid enlargement, no adenopathy. CHEST: No chest wall deformity. Symmetrical expansion. LUNGS: Equal air entry with decreased breath sounds, with diffuse wheezes CVS: Regular rate and rhythm, normal S1 and S2, no gallops, no murmurs, no rubs ABDOMEN: Soft, nontender. No hepatosplenomegaly, normal bowel sounds, no guarding or rigidity. EXTREMITIES: No clubbing, no edema, no cyanosis, 2+ pulses and upper and lower extremities. MUSCULOSKELETAL: Muscle strength and tone normal. SPINE: No scoliosis or deformity SKIN: No rashes CENTRAL NERVOUS SYSTEM: Alert and oriented -3. No focal deficits, tone is normal in all 4 extremities. PSYCHIATRIC: Alert and oriented -3. Appropriate affect. Intact judgment and insight. - Labs CBC & Chem 7: 02/04/21 06:56 02/04/21 06:56 Labs: Abnormal Lab Results - Last 24 Hours (Table) 02/03/21 02/03/21 02/03/21 Range/Units 13:27 13:27 17:56 WBC (4.50-10.00) X 10*3/uL Immature Gran # (0.00-0.04) X 10*3/uL Neutrophils # (1.80-7.70) X 10*3/uL Lymphocytes # (0.90-5.00) X 10*3/uL Eosinophils # 0.9 H (0-0.7) k/uL VBG pCO2 34 L (37-51) mmHg VBG HCO3 19 L (24-28) mmol/L Carbon Dioxide 20 L (22-30) mmol/L Anion Gap (4.00-12.00) mmol/L Glucose 101 H (74-99) mg/dL Calcium (8.7-10.3) mg/dL Albumin (3.8-4.9) g/dL 02/04/21 02/04/21 Range/Units 06:56 06:56 WBC 15.99 H (4.50-10.00) X 10*3/uL Immature Gran # 0.07 H (0.00-0.04) X 10*3/uL Neutrophils # 14.91 H (1.80-7.70) X 10*3/uL Lymphocytes # 0.65 L (0.90-5.00) X 10*3/uL Eosinophils # 0 L (0-0.7) k/uL VBG pCO2 (37-51) mmHg VBG HCO3 (24-28) mmol/L Carbon Dioxide 13.8 L (22-30) mmol/L Anion Gap 19.20 H (4.00-12.00) mmol/L Glucose 136 H (74-99) mg/dL Calcium 10.4 H (8.7-10.3) mg/dL Albumin 5.0 H (3.8-4.9) g/dL Assessment and Plan Plan: Assessment: #1. Acute exacerbation of mild persistent bronchial asthma #2. 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 History of GERD, presently under control #4. History of migraine cephalgia Plan: Continue current medical treatment Continue bronchodilators Continue IV steroids Continue azithromycin, Singulair Patient is still very tight bronchospastic and requiring supplemental oxygen We'll continue to follow her clinical course She will be worked up for eosinophilic asthma on an outpatient basis, when she recovers from this episode and she is off the steroids Try to qualify the patient for Fasenra or Nucala injections I performed a history & physical examination of the patient and discussed their management with my nurse practitioner, Kavita Platt. I reviewed the nurse practitioner's note and agree with the documented findings and plan of care. Lung sounds are positive for diffuse wheezes throughout the lung lira. The findings and the impression was discussed with the patient. I attest to the documentation by the nurse practitioner. Time with Patient: Less than 30
--- NOTE | 2021-02-04 14:15 | P.PN ---
Subjective Patient is feeling slightly better today. She is still having shortness of breath and wheezing. Objective - Vital Signs Vital signs: Vital Signs Temp 98.5 F 02/04/21 14:00 Pulse 87 02/04/21 14:00 Resp 17 02/04/21 14:00 BP 108/72 02/04/21 14:00 Pulse Ox 93 L 02/04/21 14:00 Intake & Output 02/03/21 02/04/21 02/04/21 18:59 06:59 18:59 Weight 61.235 kg Other: Voiding Method Toilet # Voids 1 1 - Exam General: The patient is awake and alert, in no distress Eye: there is normal conjunctiva bilaterally. Neck: The neck is supple, there is no JVD. Cardiovascular: Normal S1-S2, no S3-S4, no murmurs. Respiratory: Lungs are tight with end expiratory wheezing Gastrointestinal: Abdomen is soft, nontender Musculoskeletal: There is no pedal edema. Neurological:. Speech is normal. Skin: Skin is warm and dry - Labs CBC & Chem 7: 02/04/21 06:56 02/04/21 06:56 Labs: Abnormal Lab Results - Last 24 Hours (Table) 02/03/21 02/04/21 02/04/21 Range/Units 17:56 06:56 06:56 WBC 15.99 H (4.50-10.00) X 10*3/uL Immature Gran # 0.07 H (0.00-0.04) X 10*3/uL Neutrophils # 14.91 H (1.80-7.70) X 10*3/uL Lymphocytes # 0.65 L (0.90-5.00) X 10*3/uL Eosinophils # 0 L (0.04-0.35) X 10*3/uL VBG pCO2 34 L (37-51) mmHg VBG HCO3 19 L (24-28) mmol/L Carbon Dioxide 13.8 L (21.6-31.8) mmol/L Anion Gap 19.20 H (4.00-12.00) mmol/L Glucose 136 H (70-110) mg/dL Calcium 10.4 H (8.7-10.3) mg/dL Albumin 5.0 H (3.8-4.9) g/dL Assessment and Plan Assessment: This is a 25-year-old female with past medical history significant for underlying asthma that presented to the emergency room with worsening shortness of breath and wheezing. Patient was evaluated in the ER and admitted to the hospital for further management of her medical problems noted below. 1. Acute asthma exacerbation 2. Underlying mild persistent asthma Patient was seen and evaluated by pulmonary. She was started on IV Solu-Medrol and bronchodilators. COVID-19 screen is negative. Continue supportive care otherwise. Anticipate discharge home tomorrow.
[2021-02-04] MEDS ORDERED: SUMAtriptan succinate 25 MG TAB PO STA ×2 (14:54→22:45)
[2021-02-04] MEDS: MONTELUKAST 10 MG TAB PO SCH (19:42)
[2021-02-05] MEDS: methylPREDNISolone SOD SUCCI 125 MG/2 ML VIAL IV SCH (05:54)
[2021-02-05] MEDS: FORMOTEROL FUMARATE 20 MCG/2 ML NEBU INHALATION SCH (07:08)
[2021-02-05] MEDS: BUDESONIDE 1 MG/2 ML NEBU INHALATION SCH (07:08)
[2021-02-05] MEDS: IPRATROPIUM-ALBUTEROL 3 ML NEB INHALATION SCH ×2 (07:09→11:38)
[2021-02-05 08:07] VITALS: BP 108/63; TEMP 98
[2021-02-05] MEDS: PANTOPRAZOLE 40 MG/10 ML VIAL IV SCH (08:57)
--- NOTE | 2021-02-05 09:26 | P.DS ---
Providers Date of admission: 02/03/21 14:47 Expected date of discharge: 02/05/21 Attending physician: Hillary Galeas DO Consults: 02/03/21 14:37 Consult Physician Urgent Consulting Provider: Ashley Roper Reason/Comments: Asthma exacerbation Do you want consulting provider notified?: Yes Primary care physician: Geovani Gorman MD Hospital Course: This is a 25-year-old female with past medical history significant for underlying asthma that presented to the emergency room with worsening shortness of breath and wheezing. Patient was evaluated in the ER and admitted to the hospital for further management of her medical problems noted below. 1. Acute asthma exacerbation 2. Underlying mild persistent asthma Patient was seen and evaluated by pulmonary. She was started on IV Solu-Medrol and bronchodilators. COVID-19 screen is negative. Her overall condition improved significantly. She will finish 5 days of steroids with oral prednisone. Started on Singulair. Follow-up with pulmonary in the office as directed. Physical exam: General: The patient is awake and alert, in no distress Eye: there is normal conjunctiva bilaterally. Neck: The neck is supple, there is no JVD. Cardiovascular: Normal S1-S2, no S3-S4, no murmurs. Respiratory: Lungs clear with mild end expiratory wheezing Gastrointestinal: Abdomen is soft, nontender Musculoskeletal: There is no pedal edema. Neurological:. Speech is normal. Skin: Skin is warm and dry Patient Condition at Discharge: Fair Plan - Discharge Summary Discharge Rx Participant: No New Discharge Prescriptions: New Montelukast [Singulair] 10 mg PO DAILY #30 tab predniSONE [Deltasone] 40 mg PO DAILY #6 tab Continue SUMAtriptan succinate [Imitrex] 25 mg PO DAILY PRN PRN Reason: Migraine Headache Albuterol Inhaler [Ventolin Hfa Inhaler] 2 puff INHALATION RT-Q4H PRN PRN Reason: Shortness Of Breath Famotidine [Pepcid] 20 mg PO BID Albuterol Nebulized [Ventolin Nebulized] 2.5 mg INHALATION RT-TID PRN PRN Reason: Shortness Of Breath Discharge Medication List Albuterol Inhaler [Ventolin Hfa Inhaler] 2 puff INHALATION RT-Q4H PRN 02/03/21 [History] Albuterol Nebulized [Ventolin Nebulized] 2.5 mg INHALATION RT-TID PRN 02/03/21 [History] Famotidine [Pepcid] 20 mg PO BID 02/03/21 [History] SUMAtriptan succinate [Imitrex] 25 mg PO DAILY PRN 02/03/21 [History] Montelukast [Singulair] 10 mg PO DAILY #30 tab 02/05/21 [Rx] predniSONE [Deltasone] 40 mg PO DAILY #6 tab 02/05/21 [Rx] Follow up Appointment(s)/Referral(s): Geovani Gorman MD [Primary Care Provider] - 1-2 days Lisa Flores MD [STAFF PHYSICIAN] - 1 Week Discharge Disposition: HOME SELF-CARE
[2021-02-05 11:40] VITALS: PULSE 92; RESP 18
--- NOTE | 2021-02-05 14:01 | P.PN ---
Subjective Progress Note Date: 02/05/21 This is a 25-year-old female with history of mild persistent asthma, patient is normally on albuterol, and on breo ellipta, being followed by Dr. Flores for her asthma, and the last time she was seen in our office was back in September 2019. Patient was seen in the ER with a few days' history of increased shortness of breath, cough, and wheezing. Patient had a relatively normal chest x-ray. She had negative PCR for COVID-19 infection. X-ray was noted to be relatively unremarkable, no evidence of infiltrate. However the patient continues to have intermittent cough and wheezing. Not improving with bronchodilators, patient is not compliant with her breo, and she has been using her rescue inhaler on the average of at least 2-4 times every single day. After evaluating the patient, I recommended that the patient gets admitted, should be placed on IV Solu-Medrol, bronchodilators in the form of DuoNeb, Pulmicort, Perforomist, and she is already on antibiotics. I have also added Singulair to her treatment. Labs in the ER were basically unremarkable including normal CBC and a relatively normal basic metabolic profile. However I have noted that the patient had 10% eosinophils hence I believe the patient would possibly be a great candidate to be evaluated on outpatient basis for possible Fasenra injections. On 02/04/2021 patient seen in follow-up on the general medical surgical floor, patient remains on 3 L of oxygen pulse ox is 89-90 and 94%. Afebrile, still slightly tachycardic, breathing little easier, but still tight and wheezy. Her chest x-ray showed no acute pulmonary process. Today's labs have been reviewed, her white blood cell count is up to 15.9 likely related to IV steroids, hemoglobin is 14.4, sodium is 138, potassium is 4.7, chloride is 105, CO2 is 13, BUN is 10, creatinine 0.7, COVID-19 PCR was negative. Patient's currently on nebulized DuoNeb, Pulmicort and Perforomist, IV Solu-Medrol 60 mg every 6 hours, Singulair, and azithromycin. The patient is seen today 02/05/2021 and follow-up on the regular medical floor. She is sitting up in bed. Awake and alert in no acute distress. Maintaining O2 saturations in the low 90s on room air. Breathing is nearly back to her baseline. Less bronchospastic and wheezing. She is continued on DuoNeb inhalations, Pulmicort and Perforomist inhalations, IV Solu-Medrol. No new labs today. Objective - Vital Signs Vital signs: Vital Signs Temp 98 F 02/05/21 08:00 Pulse 92 02/05/21 11:38 Resp 18 02/05/21 11:38 BP 108/63 02/05/21 08:00 Pulse Ox 95 02/05/21 10:24 Intake & Output 02/04/21 02/05/21 02/05/21 18:59 06:59 18:59 Other: Voiding Method Toilet Toilet # Voids 2 1 # Bowel Movements 1 - Exam GENERAL EXAM: Alert, active, very pleasant 25-year-old female, on room air, comfortable in no apparent distress. HEAD: Normocephalic. EYES: Normal reaction of pupils, equal size. NOSE: Clear with pink turbinates. THROAT: No erythema or exudates. NECK: No masses, no JVD. CHEST: No chest wall deformity. LUNGS: Equal air entry with faint end expiratory wheeze. CVS: S1 and S2 normal with no audible murmur, regular rhythm. ABDOMEN: No hepatosplenomegaly, normal bowel sounds, no guarding or rigidity. SPINE: No scoliosis or deformity SKIN: No rashes CENTRAL NERVOUS SYSTEM: No focal deficits, tone is normal in all 4 extremities. EXTREMITIES: There is no peripheral edema. No clubbing, no cyanosis. Peripheral pulses are intact. 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 Roper She is cleared for discharge from pulmonary standpoint Complete a prednisone taper Continue Breo and albuterol in the outpatient setting Follow-up in the office in 1-2 weeks' I, the cosigning physician, performed a history & physical examination of the patient. Lungs sounds with faint end expiratory wheeze. Maintaining good O2 saturations in the 90s on room air. I discussed the assessment and plan of care with my nurse practitioner, Desiree Barcenas. I attest to the above note as dictated by her.
[2021-02-06] MEDS ORDERED: PANTOPRAZOLE 40 MG TABLET PO SCH (07:30)
== END 2021-02-05 12:03 | disposition home or self-care (01) ==
LOC: EC 12:52 → INTOOBSV 14:47 → 4SSUR 14:47
PROVIDERS: ADMIT Internal Medicine; ATTEND Internal Medicine
DX: J45.31 Mild persistent asthma with (acute) exacerbation (principal); K21.9 Gastro-esophageal reflux disease without esophagitis; G43.909 Migraine, unspecified, not intractable, without status migrainosus; D72.829 Elevated white blood cell count, unspecified; R68.83 Chills (without fever); Z20.822 Contact with and (suspected) exposure to COVID-19; Z79.899 Other long term (current) drug therapy; T38.0X6A Underdosing of glucocorticoids and synthetic analogues, initial encounter
CPT/HCPCS: 96376 ×3; 96375 ×2; 96374; 99285; 36415; 94640 ×6; 94760 ×2; 80053 ×2; 84443; 82803; 83735 ×2; 84100; 85025 ×2; 87635; 71046; G0378 ×3; J2930 ×3; J2405; C9113 ×2

== ENCOUNTER 2021-07-27 18:59 | Emergency (ER) | payer OTHER ==
[2021-07-27 19:08] VITALS: TEMP 97.8
[2021-07-27] MEDS ORDERED: SODIUM CHLORIDE 0.9% 1,000 ML IV STA (19:20)
[2021-07-27] MEDS ORDERED: ONDANSETRON 4 MG/2 ML VIAL IVP STA (19:20)
--- NOTE | 2021-07-27 19:25 | ED ---
General Adult HPI - General Chief complaint: Nausea/Vomiting/Diarrhea Stated complaint: N/V/D Time Seen by Provider: 07/27/21 19:15 Source: patient, family, RN notes reviewed, old records reviewed Mode of arrival: ambulatory - History of Present Illness Initial comments: This is a well-appearing 25-year-old female presents to the emergency room with complaints of nausea and diarrhea that started on Monday. She denies any fevers. No sick contacts. States that the vomiting is 3-5 times a day watery in nature. Denies any hematochezia or hematemesis. States the diarrhea is brown in color and watery. States that she is last menstrual period was May and she is scheduled to see Dr. Molina in August. She is an established patient with her [employer]. This is her first no vaginal bleeding or vaginal discharge or dysuria. She does have a history of migraine headaches and takes sumatriptan. -: days(s) (3) Location: abdomen Severity scale (1-10): 3 Quality: aching Consistency: intermittent Associated Symptoms: nausea/vomiting, other (diarrhea) - Related Data Home Medications Medication Instructions Recorded Confirmed Albuterol Inhaler [Ventolin Hfa 2 puff INHALATION RT-Q4H PRN 02/03/21 07/27/21 Inhaler] Albuterol Nebulized [Ventolin 2.5 mg INHALATION RT-Q4H PRN 02/03/21 07/27/21 Nebulized] Famotidine [Pepcid] 20 mg PO BID 02/03/21 07/27/21 SUMAtriptan succinate [Imitrex] 25 mg PO Q2H PRN MDD 4 TABS 02/03/21 07/27/21 Ondansetron Odt [Zofran Odt] 4 mg PO Q12HR PRN 07/27/21 07/27/21 Gcw-Gfkz-Svfcb Acid 1 cap PO DAILY 07/27/21 07/27/21 [-U Capsule (formulary)] Allergies Allergy/AdvReac Type Severity Reaction Status Date / Time No Known Allergies Allergy Verified 07/27/21 20:47 Review of Systems ROS Statement: Those systems with pertinent positive or pertinent negative responses have been documented in the HPI. ROS Other: All systems not noted in ROS Statement are negative. Past Medical History Past Medical History: Asthma Additional Past Medical History / Comment(s): FX RT ARM, SPLINTED AND SURGERY. PREVIOUS FX OF LEFT ARM AT AGE 7 History of Any Multi-Drug Resistant Organisms: None Reported Past Surgical History: Orthopedic Surgery Past Anesthesia/Blood Transfusion Reactions: No Reported Reaction Additional Past Anesthesia/Blood Transfusion Reaction / Comment(s): NO FAMILY HX OF PROBLEMS Past Psychological History: No Psychological Hx Reported Smoking Status: Former smoker Past Alcohol Use History: None Reported - Past Family History Mother Family Medical History: No Reported History General Exam Limitations: no limitations General appearance: alert, in no apparent distress Head exam: Present: atraumatic Eye exam: Present: normal appearance. Absent: scleral icterus ENT exam: Present: normal exam, normal oropharynx, mucous membranes moist Neck exam: Present: normal inspection, full ROM. Absent: tenderness, meningismus, lymphadenopathy, thyromegaly Respiratory exam: Present: normal lung sounds bilaterally. Absent: respiratory distress, accessory muscle use Cardiovascular Exam: Present: tachycardia, normal heart sounds. Absent: JVD GI/Abdominal exam: Present: soft, normal bowel sounds. Absent: distended, tenderness, guarding, rebound, rigid Extremities exam: Present: normal inspection, normal capillary refill. Absent: pedal edema Back exam: Present: normal inspection, full ROM. Absent: tenderness, CVA tenderness (R), CVA tenderness (L), rash noted Neurological exam: Present: alert, oriented X3, normal gait Psychiatric exam: Present: normal affect, normal mood Skin exam: Present: warm, dry, intact, normal color. Absent: rash, cyanosis, diaphoretic, petechiae, pallor Course Vital Signs 07/27/21 07/27/21 19:01 21:53 Temperature 97.8 F Pulse Rate 109 H 98 Respiratory 18 16 Rate Blood Pressure 99/69 111/64 O2 Sat by Pulse 98 98 Oximetry Medical Decision Making - Medical Decision Making Patient is feeling much better after IV fluids. No further vomiting or diarrhea in the emergency room. Urinalysis is negative. Influenza and coronavirus swab negative. Labs are unremarkable. Assessment signs are stable, abdomen soft and nontender. This is likely a viral illness/gastroenteritis with mild dehydration. She is agreeable to being discharged home she does have an appointment coming up in August with her [employer]. She is to return with any new or worsening symptoms. Hydrate with Gatorade and takes zofran as previously prescribed for n/v. Patient and were agreeable to this plan of care. - Lab Data Result diagrams: 07/27/21 19:27 07/27/21 19:27 Lab Results 07/27/21 07/27/21 07/27/21 Range/Units 19:27 19: 19:27 WBC 7.6 (3.8-10.6) k/uL RBC 4.59 (3.80-5.40) m/uL Hgb 13.7 (11.4-16.0) gm/dL Hct 43.1 (34.0-46.0) % MCV 93.8 (80.0-100.0) fL MCH 29.9 (25.0-35.0) pg MCHC 31.9 (31.0-37.0) g/dL RDW 13.9 (11.5-15.5) % Plt Count 307 (150-450) k/uL MPV 7.0 Neutrophils % 74 % Lymphocytes % 12 % Monocytes % 9 % Eosinophils % 2 % Basophils % 1 % Neutrophils # 5.7 (1.3-7.7) k/uL Lymphocytes # 0.9 L (1.0-4.8) k/uL Monocytes # 0.7 (0-1.0) k/uL Eosinophils # 0.1 (0-0.7) k/uL Basophils # 0.1 (0-0.2) k/uL Sodium 134 L (137-145) mmol/L Potassium 4.3 (3.5-5.1) mmol/L Chloride 105 (98-107) mmol/L Carbon Dioxide 22 (22-30) mmol/L Anion Gap 7 mmol/L BUN 6 L (7-17) mg/dL Creatinine 0.45 L (0.52-1.04) mg/dL Est GFR (CKD-EPI)AfAm >90 (>60 ml/min/1.73 sqM) Est GFR (CKD-EPI)NonAf >90 (>60 ml/min/1.73 sqM) Glucose 82 (74-99) mg/dL Calcium 9.7 (8.4-10.2) mg/dL Total Bilirubin 0.6 (0.2-1.3) mg/dL AST 31 (14-36) U/L ALT 33 (4-34) U/L Alkaline Phosphatase 70 (38-126) U/L Total Protein 7.2 (6.3-8.2) g/dL Albumin 4.1 (3.5-5.0) g/dL Amylase 51 (30-110) U/L Lipase 33 (23-300) U/L Urine Color Yellow Urine Appearance Clear (Clear) Urine pH 6.0 (5.0-8.0) Ur Specific [place] 1.029 (1.001-1.035) Urine Protein Trace H (Negative) Urine Glucose (UA) Negative (Negative) Urine Ketones 3+ H (Negative) Urine Blood Negative (Negative) Urine Nitrite Negative (Negative) Urine Bilirubin Negative (Negative) Urine Urobilinogen <2.0 (<2.0) mg/dL Ur Leukocyte Esterase Negative (Negative) Influenza Type A (PCR) (Not Detectd) Influenza Type B (PCR) (Not Detectd) RSV (PCR) (Not Detectd) SARS-CoV-2 (PCR) (Not Detectd) 07/27/21 Range/Units 19:27 WBC (3.8-10.6) k/uL RBC (3.80-5.40) m/uL Hgb (11.4-16.0) gm/dL Hct (34.0-46.0) % MCV (80.0-100.0) fL MCH (25.0-35.0) pg MCHC (31.0-37.0) g/dL RDW (11.5-15.5) % Plt Count (150-450) k/uL MPV Neutrophils % % Lymphocytes % % Monocytes % % Eosinophils % % Basophils % % Neutrophils # (1.3-7.7) k/uL Lymphocytes # (1.0-4.8) k/uL Monocytes # (0-1.0) k/uL Eosinophils # (0-0.7) k/uL Basophils # (0-0.2) k/uL Sodium (137-145) mmol/L Potassium (3.5-5.1) mmol/L Chloride (98-107) mmol/L Carbon Dioxide (22-30) mmol/L Anion Gap mmol/L BUN (7-17) mg/dL Creatinine (0.52-1.04) mg/dL Est GFR (CKD-EPI)AfAm (>60 ml/min/1.73 sqM) Est GFR (CKD-EPI)NonAf (>60 ml/min/1.73 sqM) Glucose (74-99) mg/dL Calcium (8.4-10.2) mg/dL Total Bilirubin (0.2-1.3) mg/dL AST (14-36) U/L ALT (4-34) U/L Alkaline Phosphatase (38-126) U/L Total Protein (6.3-8.2) g/dL Albumin (3.5-5.0) g/dL Amylase (30-110) U/L Lipase (23-300) U/L Urine Color Urine Appearance (Clear) Urine pH (5.0-8.0) Ur Specific [place] (1.001-1.035) Urine Protein (Negative) Urine Glucose (UA) (Negative) Urine Ketones (Negative) Urine Blood (Negative) Urine Nitrite (Negative) Urine Bilirubin (Negative) Urine Urobilinogen (<2.0) mg/dL Ur Leukocyte Esterase (Negative) Influenza Type A (PCR) Not Detected (Not Detectd) Influenza Type B (PCR) Not Detected (Not Detectd) RSV (PCR) Not Detected (Not Detectd) SARS-CoV-2 (PCR) Not Detected (Not Detectd) Disposition Clinical Impression: Nausea/vomiting in Disposition: HOME SELF-CARE Condition: Good Instructions (If sedation given, give patient instructions): Acute Nausea and Vomiting (ED) Additional Instructions: Increase your fluid intake, take the Zofran as previously prescribed for any nausea. Follow-up with the [employer] as scheduled. Return to the emergency room with a new or concerning symptoms including persistent nausea vomiting, abdominal pain, or vaginal bleeding Is patient prescribed a controlled substance at d/c from ED?: No Referrals: Geovani Gorman MD [Primary Care Provider] - 1-2 days Time of Disposition: 21:49
[2021-07-27 19:43] LABS: Basophils # (A) 0.1 k/uL (0-0.2); Basophils % (A) 1 %; Eosinophils # (A) 0.1 k/uL (0-0.7); Eosinophils % (A) 2 %; HCT 43.1 % (34.0-46.0); HGB 13.7 gm/dL (11.4-16.0); Lymphocytes # (A) 0.9 k/uL (1.0-4.8); Lymphocytes % (A) 12 %; MCH 29.9 pg (25.0-35.0); MCHC 31.9 g/dL (31.0-37.0); MCV 93.8 fL (80.0-100.0); Monocytes # (A) 0.7 k/uL (0-1.0); Monocytes % (A) 9 %; Neutrophils # (A) 5.7 k/uL (1.3-7.7); Neutrophils % (A) 74 %; Platelet Count 307 k/uL (150-450); RBC 4.59 m/uL (3.80-5.40); RDW 13.9 % (11.5-15.5); WBC 7.6 k/uL (3.8-10.6)
[2021-07-27 19:52] LABS: ALT 33 U/L (4-34); AST 31 U/L (14-36); African American GFR (CKD) >90 (>60 ml/min/1.73 sqM); Albumin 4.1 g/dL (3.5-5.0); Alkaline Phosphatase 70 U/L (38-126); Amylase 51 U/L (30-110); Anion Gap 7 mmol/L; Blood Urea Nitrogen 6 mg/dL (7-17); Calcium 9.7 mg/dL (8.4-10.2); Carbon Dioxide 22 mmol/L (22-30); Chloride 105 mmol/L (98-107); Glucose 82 mg/dL (74-99); Lipase 33 U/L (23-300); Non-African American GFR(CKD) >90 (>60 ml/min/1.73 sqM); Potassium 4.3 mmol/L (3.5-5.1); Sodium 134 mmol/L (137-145); Total Bilirubin 0.6 mg/dL (0.2-1.3); Total Protein 7.2 g/dL (6.3-8.2)
[2021-07-27 21:35] LABS: Appearance,Urine Clear (Clear); Bilirubin,Urine Negative (Negative); Blood,Urine Negative (Negative); Color,Urine Yellow; Glucose,Urine (UA) Negative (Negative); Leukocyte Esterase,Urine Negative (Negative); Nitrite,Urine Negative (Negative); Protein,Urine Trace (Negative); Specific Gravity,Urine 1.029 (1.001-1.035); Urobilinogen,Urine <2.0 mg/dL (<2.0)
[2021-07-27 21:39] LABS: Ketones,Urine 3+ (Negative)
[2021-07-27 21:54] VITALS: BP 111/64; PULSE 98; RESP 16
== END 2021-07-27 22:08 | disposition home or self-care (01) ==
LOC: EC 18:59
DX: O21.9 Vomiting of pregnancy, unspecified (principal); J45.909 Unspecified asthma, uncomplicated; Z87.891 Personal history of nicotine dependence; Z20.822 Contact with and (suspected) exposure to COVID-19; Z3A.00 Weeks of gestation of pregnancy not specified
CPT/HCPCS: 36415; 80053; 82150; 83690; 85025; 81003; 87636; 99284; 96374; 96361; J2405

== ENCOUNTER 2021-12-20 14:46 | Outpatient (CLI) | payer OTHER ==
[2021-12-20 15:46] VITALS: BP 122/75; PULSE 103; RESP 14; TEMP 98.2
--- NOTE | 2021-12-24 13:17 | P.MSEPDOC ---
Presenting Problems - Arrival Data Date of Arrival on Unit: 12/20/21 Time of Arrival on Unit: 14:55 Mode of Transport: Ambulatory - Complaint OB-Reason for Admission/Chief Complaint: Decreased Movement Comment: unsure when she last felt baby move Medical History - Information : 1 Para: 0 Term: 0 : 0 Abortions: Spontaneous or Elective: 0 Number of Living Children: 0 - Gestational Age Gestational Age by WILMER (wks/days): 29 Weeks and 5 Days Review of Systems - Review of Systems Constitutional: No problems Breast: No problems ENT: No problems Cardiovascular: No problems Respiratory: No problems Gastrointestinal: No problems Genitourinary: No problems Musculoskeletal: No problems Neurological: No problems Skin: No problems Vital Signs - Temperature Temperature: 98.2 F Temperature Source: Oral - Pulse Right Brachial Pulse Rate: 103 Pulse Assessment Method: Automatic Cuff - Respirations Respiratory Rate: 14 Oxygen Delivery Method: Room Air - Blood Pressure Right Arm Blood Pressure: 122/75 Blood Pressure Mean: 90 Blood Pressure Source: Automatic Cuff Medical Screen Scoring - Assessment - Baby A Baseline FHR: 135 Heart Rate - NICHD Category: Category I (Normal) NST: Reactive Physician Notification - Physician Notified Physician Notified Date: 12/20/21 Physician Notified Time: 15:24 Physician: Cynthia Neff New Order Received: Yes - Notification Comment Comment: reported pt visit with concerns of no movement for an unknown period of time. reported reactive nst, movement heard by us pt now feeling fm. Maternal Triage Index - Maternal Triage Index Presenting for scheduled procedure w/no complaint: No - Stat/Priority 1 Stat Priority 1: No - Urgent/Priority 2 Urgent Priority 2: Yes Provider Notified: Cynthia Neff Provider Notified Time: 15:21 Criteria Met for Priority 2: decreased fm - Prompt/Priority 3 Prompt Priority 3: No - Non-Urgent/Priority 4 Non-Urgent Priority 4: No Disposition - Disposition OB Disposition: Discharge to home Discharge Date: 12/20/21 Discharge Time: 15:33 I agree with the RN Medical Screening Exam: Yes Case reviewed; plan agreed upon as documented in EMR&OBIX.: Yes Diagnosis: DECREASED MOVEMENTS, THIRD TRIMESTER, UNSP
== END 2021-12-20 15:33 | disposition home or self-care (01) ==
LOC: FBPOP 14:46
PROVIDERS: ATTEND Obstetrics & Gynecology
DX: O36.8130 Decreased fetal movements, third trimester, not applicable or unspecified (principal); Z3A.29 29 weeks gestation of pregnancy
CPT/HCPCS: 99213

== ENCOUNTER 2021-12-26 19:10 | Outpatient (CLI) | payer OTHER ==
[2021-12-26 23:36] VITALS: BP 123/68; PULSE 95; RESP 17; TEMP 97.8
--- NOTE | 2021-12-27 01:05 | P.MSEPDOC ---
Presenting Problems - Arrival Data Date of Arrival on Unit: 12/26/21 Time of Arrival on Unit: 19:11 Mode of Transport: Ambulatory - Complaint OB-Reason for Admission/Chief Complaint: Pain, Other Comment: Pt presents to triage with c/o passing a small bright red blood clot the size of her fingernail about 20 minutes ago and lower abdominal pain 3 out of 10. Medical History - Information : 1 Para: 0 Term: 0 : 0 Abortions: Spontaneous or Elective: 0 Number of Living Children: 0 - Gestational Age Gestational Age by WILMER (wks/days): 30 Weeks and 4 Days Review of Systems - Review of Systems Constitutional: No problems Breast: No problems ENT: No problems Cardiovascular: No problems Respiratory: No problems Gastrointestinal: No problems Genitourinary: No problems Musculoskeletal: No problems Neurological: No problems Skin: No problems Vital Signs - Temperature Temperature: 97.8 F Temperature Source: Temporal Artery Scan - Pulse Pulse Oximetery Pulse Rate: 95 Pulse Assessment Method: Pulse Oximetry - Respirations Respiratory Rate: 17 Oxygen Delivery Method: Room Air O2 Sat by Pulse Oximetry: 99 - Blood Pressure Right Arm Blood Pressure: 123/68 Blood Pressure Mean: 86 Blood Pressure Source: Automatic Cuff Medical Screen Scoring - Uterine Contractions Resting: Soft to palpation - Assessment - Baby A Baseline FHR: 135 Heart Rate - NICHD Category: Category I (Normal) NST: Reactive Physician Notification - Physician Notified Physician Notified Date: 12/26/21 Physician Notified Time: 19:18 Physician: Cynthia Neff Order Received: Yes - Notification Comment Comment: At 1917, RN spoke with Dr. Neff, who was on the phone with another RN regarding another pt. Reported pt presents with c/o a small bright red blood clot the size of her fingernail, lower abdominal pain with a pain rating of 3 out of 10 and pt reports having intercourse earlier this afternoon. Per Dr. Neff, JOSEPH to perform a speculum exam to determine if pt is actively bleeding. If no blood noted, RN to perform cervical exam. At 1950, reported that no bleeding was noted during speculum exam or during cervical exam and pt is closed/thick. Per Dr. Aishwayra RN to discharge pt home. Maternal Triage Index - Maternal Triage Index Presenting for scheduled procedure w/no complaint: No - Stat/Priority 1 Stat Priority 1: No - Urgent/Priority 2 Urgent Priority 2: No - Prompt/Priority 3 Prompt Priority 3: No - Non-Urgent/Priority 4 Non-Urgent Priority 4: Yes Criteria Met for Priority 4: Pt presents to triage with c/o passing a small bright red blood clot the size of her fingernail about 20 minutes ago and lower abdominal pain 3 out of 10. Disposition - Disposition OB Disposition: Discharge to home, Written follow up instructions reviewed Discharge Date: 12/26/21 Discharge Time: 20:00 I agree with the RN Medical Screening Exam: Yes Physician's MSE Comment: Patient had passed a small clot shortly after having intercourse. No bleeding was noted on exam. Category 1 heart tones were noted and no contractions were noted. Case reviewed; plan agreed upon as documented in EMR&OBIX.: Yes Diagnosis: SPOTTING COMPLICATING , THIRD TRIMESTER
== END 2021-12-26 20:00 | disposition home or self-care (01) ==
LOC: FBPOP 19:10
PROVIDERS: ATTEND Obstetrics & Gynecology
DX: O26.853 Spotting complicating pregnancy, third trimester (principal); Z3A.30 30 weeks gestation of pregnancy
CPT/HCPCS: 59025; 99213

== ENCOUNTER 2021-12-28 20:10 | Outpatient (CLI) | payer OTHER ==
[2021-12-28 21:29] VITALS: BP 121/65; PULSE 105; RESP 17; TEMP 98.1
--- NOTE | 2021-12-29 08:42 | P.MSEPDOC ---
Presenting Problems - Arrival Data Date of Arrival on Unit: 12/28/21 Time of Arrival on Unit: 20:10 Mode of Transport: Ambulatory - Complaint OB-Reason for Admission/Chief Complaint: Decreased Movement Comment: Pt presents to triage with c/o decreased movement since 1100 this morning as well as a migraine and elevated temperature ranging from 99.0-100.0. Medical History - Information : 1 Para: 0 Term: 0 : 0 Abortions: Spontaneous or Elective: 0 Number of Living Children: 0 - Gestational Age Gestational Age by WILMER (wks/days): 30 Weeks and 6 Days Review of Systems - Review of Systems Constitutional: No problems Breast: No problems ENT: No problems Cardiovascular: No problems Respiratory: No problems Gastrointestinal: No problems Genitourinary: No problems Musculoskeletal: No problems Neurological: No problems Skin: No problems Vital Signs - Temperature Temperature: 98.1 F Temperature Source: Oral - Pulse Pulse Oximetery Pulse Rate: 105 Pulse Assessment Method: Pulse Oximetry - Respirations Respiratory Rate: 17 Oxygen Delivery Method: Room Air O2 Sat by Pulse Oximetry: 99 - Blood Pressure Right Arm Blood Pressure: 121/65 Blood Pressure Mean: 83 Blood Pressure Source: Automatic Cuff Medical Screen Scoring - Assessment - Baby A Baseline FHR: 140 Heart Rate - NICHD Category: Category I (Normal) NST: Reactive Physician Notification - Physician Notified Physician Notified Date: 12/28/21 Physician Notified Time: 20:47 Physician: Cynthia Neff Order Received: Yes - Notification Comment Comment: RN spoke with Dr. Neff regarding triage pt c/o decreased movement since 1100 this morning as well as c/o a migraine and low grade fevers today that are resolved. Reported on category 1 FHT, reactive NST, no contx, maternal vital signs WNL and movement felt by pt. Per Dr. Aishwarya RN to educate pt to contact office tomorrow to schedule biweekly NSTs as well as an ultrasound sooner than her 35 week appt. RN to also reassure pt on findings. Maternal Triage Index - Maternal Triage Index Presenting for scheduled procedure w/no complaint: No - Stat/Priority 1 Stat Priority 1: No - Urgent/Priority 2 Urgent Priority 2: No - Prompt/Priority 3 Prompt Priority 3: No - Non-Urgent/Priority 4 Non-Urgent Priority 4: Yes Criteria Met for Priority 4: Pt presents to triage with c/o decreased movement since 1100 this morning as well as a migraine and elevated temperature ranging from 99.0-100.0. Disposition - Disposition OB Disposition: Discharge to home, Written follow up instructions reviewed Discharge Date: 12/28/21 Discharge Time: 20:58 I agree with the RN Medical Screening Exam: Yes Physician's MSE Comment: Patient advised to contact the office tomorrow to see if Dr. Molina would like an ultrasound prior to her 35 week ultrasound. She is also instructed to start coming in the office twice weekly for nonstress tests due to her decreased movement. She was feeling good movement prior to discharge. Case reviewed; plan agreed upon as documented in EMR&OBIX.: Yes Diagnosis: DECREASED MOVEMENTS, THIRD TRIMESTER, UNSP
== END 2021-12-28 20:58 | disposition home or self-care (01) ==
LOC: FBPOP 20:10
PROVIDERS: ATTEND Obstetrics & Gynecology
DX: O36.8130 Decreased fetal movements, third trimester, not applicable or unspecified (principal); Z3A.30 30 weeks gestation of pregnancy
CPT/HCPCS: 59025; 99213

== ENCOUNTER 2022-02-08 21:15 | Outpatient (CLI) | payer OTHER ==
[2022-02-08 23:26] VITALS: BP 123/71; PULSE 111; RESP 16; TEMP 97.8
--- NOTE | 2022-03-07 07:55 | P.MSEPDOC ---
Presenting Problems - Arrival Data Date of Arrival on Unit: 02/08/22 Time of Arrival on Unit: 21:15 Mode of Transport: Ambulatory - Complaint OB-Reason for Admission/Chief Complaint: Possible Onset of Labor Medical History - Information : 1 Para: 0 : 0 Abortions: Spontaneous or Elective: 0 Number of Living Children: 0 - Gestational Age Gestational Age by WILMER (wks/days): 36 Weeks and 6 Days - History Comment: Patient has no complications with this . Review of Systems - Review of Systems Constitutional: No problems Breast: No problems ENT: No problems Cardiovascular: No problems Respiratory: No problems Gastrointestinal: No problems Genitourinary: No problems Musculoskeletal: No problems Neurological: No problems Skin: No problems Vital Signs - Temperature Temperature: 97.8 F Temperature Source: Temporal Artery Scan - Pulse Pulse Oximetery Pulse Rate: 111 Pulse Assessment Method: Automatic Cuff - Respirations Respiratory Rate: 16 Oxygen Delivery Method: Room Air O2 Sat by Pulse Oximetry: 97 - Blood Pressure Right Arm Blood Pressure: 123/71 Blood Pressure Mean: 88 Blood Pressure Source: Automatic Cuff Medical Screen Scoring - Cervical Exam Dilation (cm): 1 Effacement (%): 60 Station: -2 Membranes: Intact - Uterine Contractions Frequency From (mins): 2 Frequency To (mins): 8 Duration From (seconds): 40 Duration To (seconds): 110 Intensity: Mild Resting: Soft to palpation - Assessment - Baby A Baseline FHR: 130 Heart Rate - NICHD Category: Category I (Normal) NST: Reactive Physician Notification - Physician Notified Physician Notified Date: 02/08/22 Physician Notified Time: 21:30 Physician: Lyubov Doyle New Order Received: Yes - Notification Comment Comment: Dr. Doyle stated to perform cervical check in one hour and call her with result. Dr. Doyle called at [phone] with second check and aware of reactive NST negative amnisure result, contraction pattern and pain that has decreased and Dr. Doyle would like to discharge patient. See [facility] notes Maternal Triage Index - Prompt/Priority 3 Prompt Priority 3: Yes Criteria Met for Priority 3: Patient states that she has have lower abdominal pain for a few days on and off a sharp pain 5/10 on numeric scale. Patients a bdomen is soft to palpation by RN. Patient stated that she thinks her mucus plug came out showed RN picture of clear jelly like fluid on a napkin no blood or color present. Patient denies sexual intercourse in the last 24 hours or leaking of clear thin fluid. Disposition - Disposition OB Disposition: Discharge to home Discharge Date: 02/08/22 Discharge Time: 22:47 I agree with the RN Medical Screening Exam: Yes Case reviewed; plan agreed upon as documented in EMR&[facility].: Yes Diagnosis: FALSE LABOR AT OR AFTER 37 COMPLETED WEEKS OF GESTATION
== END 2022-02-08 22:47 | disposition home or self-care (01) ==
LOC: FBPOP 21:15
PROVIDERS: ATTEND Obstetrics & Gynecology
DX: O47.1 False labor at or after 37 completed weeks of gestation (principal); Z3A.36 36 weeks gestation of pregnancy
CPT/HCPCS: 59025; 84112; 99213

== ENCOUNTER 2022-02-28 05:55 | Inpatient (IN) | payer OTHER ==
[2022-02-28] MEDS: LACTATED RINGERS 1,000 ML IV SCH ×2 (06:20→11:06)
--- NOTE | 2022-02-28 06:21 | P.HPOB ---
History of Present Illness H&P Date: 02/28/22 Chief Complaint: Requested induction of labor. This patient is a pleasant 26-year-old 1 para 0 female estimated date of confinement 03/02/2022 estimated gestational age 39-5/7 weeks' who presents to labor and delivery for requested induction of labor. Patient's care has been complicated by decreased movement for several weeks in the middle the however testing was normal and nonstress testing was normal. otherwise has been uncomplicated. She is now uncomfortable with a favorable cervix requesting induction of labor. Review of Systems Genitourinary: Reports Menstruation: Reports amenorrhea Past Medical History Past Medical History: Asthma Additional Past Medical History / Comment(s): FX RT ARM, SPLINTED AND SURGERY. PREVIOUS FX OF LEFT ARM AT AGE 7 History of Any Multi-Drug Resistant Organisms: None Reported Past Surgical History: Orthopedic Surgery Past Anesthesia/Blood Transfusion Reactions: No Reported Reaction Additional Past Anesthesia/Blood Transfusion Reaction / Comment(s): NO FAMILY HX OF PROBLEMS Past Psychological History: No Psychological Hx Reported Smoking Status: Never smoker Past Alcohol Use History: None Reported Past Drug Use History: None Reported - Past Family History Mother Family Medical History: No Reported History Medications and Allergies Home Medications Medication Instructions Recorded Confirmed Type Famotidine [Pepcid] 20 mg PO BID 02/03/21 02/08/22 History Wba-Jegu-Qghid Acid 1 cap PO DAILY 07/27/21 02/08/22 History [-U Capsule (formulary)] Allergies Allergy/AdvReac Type Severity Reaction Status Date / Time No Known Allergies Allergy Verified 02/08/22 21:57 Exam - OBG Physical Exam Abdomen: bowel sounds normal, no diffuse tenderness, no bruit present, no guarding noted, no hepatomegaly, no splenomegaly, no mass Vulva: both: normal Vagina: normal moisture, no discharge Cervix: no lesion (Cervix is 2-3 cm dilated 50% effaced in the office), no discharge Uterus: enlarged (Fundal height is 38 cm) Results labs show she is A positive, rubella nonimmune, RPR nonreactive, hepatitis B negative, HIV is nonreactive, Glucola was normal, group B strep was negative, ultrasounds most recently showed normal growth Assessment and Plan Assessment: This is a pleasant 26-year-old 1 para 0 female 39-5/7 weeks who presents to labor and delivery for requested induction of labor. Plan is induction of labor and anticipate vaginal delivery. (1) 39 weeks gestation of Current Visit: Yes Status: Acute Code(s): Z3A.39 - 39 WEEKS GESTATION OF SNOMED Code(s): 74847891 (2) Encounter for planned induction of labor Current Visit: Yes Status: Acute Code(s): Z34.90 - ENCNTR FOR SUPRVSN OF NORMAL , UNSP, UNSP TRIMESTER SNOMED Code(s): 880816619
[2022-02-28] MEDS ORDERED: LIDOCAINE 0.5% (PF) 5 MG/ML (50 ML SDV) SQ PRN (06:26)
[2022-02-28] MEDS ORDERED: OXYTOCIN 30 UNITS/500 ML NS 30 UNIT in SALINE 1 500ML.BAG IV SCH ×2 (06:26→19:00)
[2022-02-28] MEDS ORDERED: TERBUTALINE 1 MG/ML VIAL SQ PRN (06:26)
[2022-02-28 07:47] LABS: Anisocytosis Slight; Basophils % (A) 0 %; Eosinophils # (A) 0.1 k/uL (0-0.7); Eosinophils % (A) 1 %; HCT 34.8 % (34.0-46.0); HGB 11.4 gm/dL (11.4-16.0); Hypochromasia Slight; Lymphocytes # (A) 1.9 k/uL (1.0-4.8); Lymphocytes % (A) 15 %; MCH 28.5 pg (25.0-35.0); MCHC 32.6 g/dL (31.0-37.0); MCV 87.2 fL (80.0-100.0); Mean Platelet Volume 9.1; Monocytes # (A) 0.8 k/uL (0-1.0); Monocytes % (A) 7 %; Neutrophils % (A) 74 %; Platelet Count 305 k/uL (150-450); RBC 3.99 m/uL (3.80-5.40); RDW 16.4 % (11.5-15.5); WBC 12.2 k/uL (3.8-10.6)
[2022-02-28] MEDS ORDERED: BUTORPHANOL 1 MG/ML 1 ML VIAL IV PRN (10:59)
[2022-02-28] MEDS ORDERED: fentaNYL (PF) 50 MCG/ML 5 ML AMP ONE (11:10)
[2022-02-28] MEDS ORDERED: ROPIVACAINE 5 MG/ML 20 ML AMPULE ONE (11:10)
[2022-02-28] MEDS ORDERED: SODIUM CHLORIDE 0.9% 100 ML BAG ONE (11:10)
[2022-02-28] MEDS ORDERED: CITRIC ACID-SODIUM CITRATE 15 ML CUP PO ONE (17:38)
[2022-02-28] MEDS ORDERED: ONDANSETRON 4 MG/2 ML VIAL ONE (18:00)
[2022-02-28] MEDS ORDERED: PHENYLEPHRINE-0.9% NACL SYG 1,000 MCG/10 ML SYRINGE ONE (18:00)
[2022-02-28] MEDS ORDERED: OXYTOCIN 30 UNITS/500 ML NS BAG IV ONE (18:00)
[2022-02-28] MEDS ORDERED: MORPHINE SULFATE (PF) 0.3 MG/0.3 ML SYR ONE (18:00)
[2022-02-28] MEDS ORDERED: KETOROLAC 15 MG/ML 1 ML VIAL ONE (18:00)
[2022-02-28] MEDS ORDERED: METOCLOPRAMIDE 5 MG/ML 2 ML VIAL IVP PRN (18:49)
[2022-02-28] MEDS ORDERED: ONDANSETRON 4 MG/2 ML VIAL IVP PRN (18:49)
[2022-02-28] MEDS ORDERED: SIMETHICONE 80 MG CHEWABLE PO PRN (18:49)
[2022-02-28] MEDS ORDERED: LANOLIN CREAM 5 GM TUBE TOPICAL PRN (18:49)
[2022-02-28] MEDS ORDERED: ZOLPIDEM 5 MG TAB PO PRN (18:49)
[2022-02-28] MEDS ORDERED: diphenhydrAMINE 50 MG/ML 1 ML VIAL IVP PRN (18:49)
[2022-02-28] MEDS ORDERED: NALOXONE 0.4 MG/ML 1 ML VIAL IV PRN ×2 (18:49→19:31)
[2022-02-28] MEDS ORDERED: diphenhydrAMINE 25 MG CAP PO PRN (18:49)
--- NOTE | 2022-02-28 19:08 | P.OP ---
Date of Procedure: 02/28/22 Preoperative Diagnosis: #1: 39-5/7 weeks' intrauterine . #2: Cephalopelvic dystocia without descent. #3: Maternal exhaustion #4: Narrow pelvic outlet Postoperative Diagnosis: #1: Same. #2: Straight occiput posterior presentation Procedure(s) Performed: Primary low transverse section Anesthesia: spinal Surgeon: Yandel Molina It Operations Specialist #1: Madison Leon Estimated Blood Loss (ml): 800 Pathology: none sent Condition: stable Disposition: floor Indications for Procedure: Please see dictated H&P for intimate details of this patient's admission. In brief summary this is a pleasant 26-year-old 1 para 0 female 39-5/7 weeks admitted this morning for requested induction of labor. On admission patient is 3 cm dilated has artificial rupture membranes for clear fluid. Patient's labor progresses and she does get quite uncomfortable and then has an epidural placed for good relief. Patient's head really does not present beyond 0 station however she does get to complete. Patient is encouraged to push and after about an hour pushing there is no progression of the head and is also felt that the patient's pelvic outlet is narrow. Patient this time is exhausted is requesting section and feel this is appropriate. I did discuss the surgery with the patient and her in the understand the surgery and risks including risk of infection, bleeding, possible injury bowel, bladder, vessels, and/or other organs. All the patient's questions are answered and a written consent is obtained. Operative Findings: This was a vigorous viable male Apgars 9 and 9 delivery time is 1816 hrs. Infant has spontaneous respirations and good cry and grossly appeared normal. Infant was straight occiput posterior presentation. Description of Procedure: This patient has a Joyce catheter placed to straight drain. She is subsequently taken to the operating room where the epidural catheter is removed and spinal anesthetic is administered. The appropriate timeout is done. With an adequate level of anesthesia she has abdominal prep and drape. Scalpels and taken Pfannenstiel skin incision is then made. A second scalpel is taken down the fascia the fascia scored with a knife. Fascial incision is extended. The rectus muscles are the peritoneum was identified and entered sharply. Peritoneal incision extended superior and inferior without difficulty. Bladder blade is then placed. Bladder peritoneum was taken sharply off the lower uterine segment. Scalpels and taken and a low transverse uterine incision is then made. Using a hemostat I enter the uterine cavity bluntly and there is loss of small amount of clear fluid. The uterine incision is extended bluntly. It is evident the infant's head is os with posterior presentation and is in the pelvis. The head is elevated out of the pelvis as gently as possible and then delivered through the incision with fundal pressure. Mouth and nares are bulb suctioned. Is no evidence of nuchal cord. With more fundal pressure we then have delivery the rest of this 's body. This is a vigorous viable male infant Apgars are 9 and 9 delivery time is 1816 hrs. After delivery of the infant the umbilical cord is doubly clamped and cut is handed off to the nurses in attendance. The placenta is then manually extracted intact. The uterine incision is then inspected. Uterine incision is quite ragged due to the patient's pushing and the position the head. The corners are isolated with Zambrano clamps. And the rest of the incision is demarcated with Pen nington clamps as well. Using a 0 Vicryl suture and the incision is then closed in a running locked fashion. A second layer of 0 Vicryl suture is then placed at this time good reapproximation is noted. The bladder peritoneum was then identified and closed using a 3-0 Vicryl. Final inspection the incision shows good hemostasis. The uterus, tubes, ovaries appear normal for term gestation. Excess fluid is removed from the abdomen and pelvis. Uterus placed back into the abdomen. The parietal peritoneum was then closed using 0 Vicryl running fashion. Rectus muscles are reapproximated in 0 Vicryl interrupted fashion. Fascial incision is then closed using 0 PDS in a running fashion. Fascial incision is intact and hemostatic. Subcutaneous tissues and closed using a 3-0 Vicryl. Skin is and closed using lara. Sterile dressing is then applied. All counts are correct 3. There are no complications. Infant and mother taken the birthing suite in satisfactory condition.
[2022-02-28] MEDS ORDERED: HYDROmorphone 0.5 MG/0.5 ML SYRINGE IVP PRN (19:31)
[2022-02-28] MEDS: ACETAMINOPHEN TAB 500 MG TAB PO SCH (21:25)
[2022-02-28] MEDS: SENNOSIDES-DOCUSATE SODIUM 1 EACH TAB PO SCH (21:26)
[2022-02-28] MEDS ORDERED: MEASLES-MUMPS-RUBELLA VACC/PF 12,500 UNIT/0.5 ML VIAL SQ ONE (21:49)
[2022-03-01] MEDS: LACTATED RINGERS 1,000 ML IV SCH ×2 (01:00→20:36)
[2022-03-01] MEDS: KETOROLAC 15 MG/ML 1 ML VIAL IVP SCH ×3 (03:34→20:36)
[2022-03-01] MEDS: IBUPROFEN 600 MG TAB PO SCH ×3 (04:40→17:19)
[2022-03-01] MEDS: ACETAMINOPHEN TAB 500 MG TAB PO SCH ×4 (05:08→21:42)
[2022-03-01 05:52] LABS: Anisocytosis Slight; Basophils % (A) 0 %; Eosinophils # (A) 0.1 k/uL (0-0.7); Eosinophils % (A) 0 %; HCT 29.1 % (34.0-46.0); Hypochromasia Slight; Lymphocytes # (A) 1.2 k/uL (1.0-4.8); Lymphocytes % (A) 8 %; MCH 28.7 pg (25.0-35.0); MCHC 32.5 g/dL (31.0-37.0); MCV 88.1 fL (80.0-100.0); Monocytes # (A) 0.8 k/uL (0-1.0); Monocytes % (A) 5 %; Neutrophils # (A) 13.2 k/uL (1.3-7.7); Neutrophils % (A) 85 %; Platelet Count 284 k/uL (150-450); RBC 3.31 m/uL (3.80-5.40); RDW 16.3 % (11.5-15.5); WBC 15.5 k/uL (3.8-10.6)
[2022-03-01 06:04] LABS: HGB 9.5 gm/dL (11.4-16.0)
--- NOTE | 2022-03-01 06:37 | P.PNOBGPC ---
Subjective - Subjective Patient reports: Reports appetite normal, Reports voiding normally, Reports pain well controlled, Reports ambulating normally [place]: doing well Objective - Vital Signs Latest vital signs: Vital Signs Temp Pulse Resp BP Pulse Ox 03/01/22 04:00 98.3 F 107 H 16 117/70 95 03/01/22 00:00 98 16 02/28/22 20:40 119/61 02/28/22 20:25 16 122/61 98 02/28/22 20:10 98 15 110/63 98 02/28/22 19:55 98.4 F 98 15 111/60 98 02/28/22 19:40 97.3 F L 95 15 105/56 98 02/28/22 19:25 97.3 F L 98 16 107/56 98 02/28/22 19:05 91 16 94/55 97 02/28/22 18:50 98.3 F 93 16 105/51 98 02/28/22 18:49 98 Intake and Output 02/28/22 02/28/22 03/01/22 14:59 22:59 06:59 Intake Total 960 Output Total 300 3057 400 Balance -300 -2097 -400 Intake: Oral 960 Output: Urine 300 700 400 Estimated Blood Loss 1400 Output, Quantitative 957 Blood Loss - Exam Lungs: bilateral: normal Chest: Normal S1, Normal S2 Extremities: Present: normal Abdomen: Present: normal appearance, soft. Absent: distention, tenderness Incision: Present: normal, dry, intact Uterus: Present: normal, firm - Labs Labs: Abnormal Lab Results - Last 24 Hours (Table) 02/28/22 03/01/22 Range/Units 06:20 05:13 WBC 12.2 H 15.5 H (3.8-10.6) k/uL RBC 3.31 L (3.80-5.40) m/uL Hgb 9.5 L D (11.4-16.0) gm/dL Hct 29.1 L (34.0-46.0) % RDW 16.4 H 16.3 H (11.5-15.5) % Neutrophils # 9.0 H 13.2 H (1.3-7.7) k/uL Assessment and Plan Assessment: Postoperative day #1. Patient is resting without new complaints. Vital signs are stable she's afebrile. Uterus is firm nontender and her incision is intact and dry. Hemoglobin today was 9.5. Patient is having normal lochia. Plan today is to advance her diet, all the patient's shower, encourage ambulation. Continue routine postoperative care. (1) 39 weeks gestation of Current Visit: Yes Status: Acute Code(s): Z3A.39 - 39 WEEKS GESTATION OF SNOMED Code(s): 25264507 (2) Encounter for planned induction of labor Current Visit: Yes Status: Acute Code(s): Z34.90 - ENCNTR FOR SUPRVSN OF NORMAL , UNSP, UNSP TRIMESTER SNOMED Code(s): 691387493
[2022-03-01] MEDS: SENNOSIDES-DOCUSATE SODIUM 1 EACH TAB PO SCH ×2 (08:00→20:26)
--- NOTE | 2022-03-01 09:28 | P.PN ---
Progress Note - Text Progress Note Date: 03/01/22 Postoperative day 1 status post section under spinal anesthesia, and i ntrathecal morphine given for postoperative analgesia, patient doing well, there is no anesthesia related complications, Patient had no headache, vital signs stable , Assessment and plan= postop day 1 status post , doing well there is no anesthesia related complication.
[2022-03-02] MEDS: IBUPROFEN 600 MG TAB PO SCH ×4 (00:19→15:14)
[2022-03-02] MEDS: ACETAMINOPHEN TAB 500 MG TAB PO SCH ×2 (04:14→11:42)
--- NOTE | 2022-03-02 06:01 | P.PNOBGPC ---
Subjective - Subjective Patient reports: Reports appetite normal, Reports voiding normally, Reports pain well controlled, Reports ambulating normally : doing well Objective - Vital Signs Latest vital signs: Vital Signs Temp Pulse Resp BP Pulse Ox 03/01/22 23:42 97.7 F 94 16 109/70 97 03/01/22 20:00 97.9 F 100 16 112/72 98 03/01/22 16:00 98.2 F 99 118/76 97 03/01/22 12:00 98.1 F 96 108/72 96 03/01/22 08:00 98.2 F 103 H 116/76 95 Intake and Output 03/01/22 03/01/22 03/02/22 14:59 22:59 06:59 Output Total 400 1600 900 Balance -400 -1600 -900 Output: Urine 400 1600 900 Straight 800 Uretheral (Joyce) 400 - Exam Lungs: bilateral: normal Chest: Normal S1, Normal S2 Extremities: Present: normal Abdomen: Present: normal appearance, soft. Absent: distention, tenderness Incision: Present: normal, dry, intact Uterus: Present: normal, firm - Labs Labs: Abnormal Lab Results - Last 24 Hours (Table) 03/01/22 Range/Units 05:13 WBC 15.5 H (3.8-10.6) k/uL RBC 3.31 L (3.80-5.40) m/uL Hgb 9.5 L D (11.4-16.0) gm/dL Hct 29.1 L (34.0-46.0) % RDW 16.3 H (11.5-15.5) % Neutrophils # 13.2 H (1.3-7.7) k/uL Assessment and Plan Assessment: Post operative day #2. Patient is resting without new complaints. Vital signs are stable and she is afebrile. Uterus is firm nontender and her incision is intact and dry. My impression this is a normal post operative course. Plan is to continue routine postop care and discharge home tomorrow. (1) 39 weeks gestation of Current Visit: Yes Status: Acute Code(s): Z3A.39 - 39 WEEKS GESTATION OF SNOMED Code(s): 67540980 (2) Encounter for planned induction of labor Current Visit: Yes Status: Acute Code(s): Z34.90 - ENCNTR FOR SUPRVSN OF NORMAL , UNSP, UNSP TRIMESTER SNOMED Code(s): 577453524
[2022-03-02] MEDS: SENNOSIDES-DOCUSATE SODIUM 1 EACH TAB PO SCH ×2 (07:38→21:56)
[2022-03-03] MEDS: ACETAMINOPHEN TAB 500 MG TAB PO SCH ×2 (01:38→05:20)
[2022-03-03] MEDS: IBUPROFEN 600 MG TAB PO SCH ×3 (02:13→11:13)
--- NOTE | 2022-03-03 06:54 | P.PNOBGPC ---
Subjective - Subjective Patient reports: Reports appetite normal, Reports voiding normally, Reports pain well controlled, Reports ambulating normally : doing well Objective - Vital Signs Latest vital signs: Vital Signs Temp Pulse Resp BP Pulse Ox 03/03/22 01:00 98.7 F 105 H 18 97 03/03/22 00:30 19 03/03/22 00:00 99.8 F H 120 H 19 122/81 96 03/02/22 15:26 98.4 F 100 16 112/77 98 03/02/22 08:00 98.3 F 102 H 16 112/73 97 Intake and Output 03/02/22 03/02/22 03/03/22 14:59 22:59 06:59 Intake Total 960 480 Balance 960 480 Intake: Oral 960 480 Other: # Voids 1 1 - Exam Lungs: bilateral: normal Chest: Normal S1, Normal S2 Extremities: Present: normal Abdomen: Present: normal appearance, soft. Absent: distention, tenderness Incision: Present: normal, dry, intact Uterus: Present: normal, firm Assessment and Plan Assessment: Postoperative day #3. Patient is resting without new complaints. Vital signs a re stable she's afebrile. She did have a low-grade temp last evening but there is no evidence of infection. Uterus is firm nontender she's having normal lochia. Her incision is intact and dry. Plan today is to continue routine care discharge home later this morning. (1) 39 weeks gestation of Current Visit: Yes Status: Acute Code(s): Z3A.39 - 39 WEEKS GESTATION OF SNOMED Code(s): 75052196 (2) Encounter for planned induction of labor Current Visit: Yes Status: Acute Code(s): Z34.90 - ENCNTR FOR SUPRVSN OF NORMAL , UNSP, UNSP TRIMESTER SNOMED Code(s): 664938260
--- NOTE | 2022-03-03 06:59 | P.DS ---
Providers Date of admission: 02/28/22 05:55 Expected date of discharge: 03/03/22 Attending physician: Yandel Molina Primary care physician: Geovani Gorman MD - Discharge Diagnosis(es) (1) 39 weeks gestation of Current Visit: Yes Status: Acute (2) Encounter for planned induction of labor Current Visit: Yes Status: Acute Hospital Course: Please see dictated H&P for intimate details of this patient's admission. Brief summary this is a pleasant 26-year-old 1 para 0 female estimated gestational age 39-5/7 weeks gestation admitted to labor and delivery for requested induction of labor. Patient goes on to have a primary low transverse section for cephalopelvic dystocia narrow pelvic outlet. Patient does well and on day #3 cell to be stable for discharge home follow up with me in 1 week. Procedures: Primary low transverse section Patient Condition at Discharge: Good Plan - Discharge Summary New Discharge Prescriptions: New Ibuprofen [Motrin] 600 mg PO Q6H #40 tab oxyCODONE HCL [OxyIR] 5 mg PO Q4HR PRN #18 tab PRN Reason: Pain Scale 4 - 6 No Action Famotidine [Pepcid] 20 mg PO BID [id number] Acid [-U Capsule (formulary)] 1 cap PO DAILY Discharge Medication List Famotidine [Pepcid] 20 mg PO BID 02/03/21 [History] Zix-Hcra-Dnliw Acid [-U Capsule (formulary)] 1 cap PO DAILY 07/27/21 [History] Ibuprofen [Motrin] 600 mg PO Q6H #40 tab 03/02/22 [Rx] oxyCODONE HCL [OxyIR] 5 mg PO Q4HR PRN #18 tab 03/02/22 [Rx] Follow up Appointment(s)/Referral(s): Yandel Molina MD [STAFF PHYSICIAN] - 04/12/22 8:30 am (Post Op Appointment 03-07-2022 at 08:45) Patient Instructions/Handouts: (DC) Activity/Diet/Wound Care/Special Instructions: No heavy lifting or strenuous activity for 6 weeks. No intercourse or anything per vagina for 6 weeks. Please call if any fever, chills, excessive vaginal bleeding, and/or abdominal pain. Discharge Disposition: HOME SELF-CARE
[2022-03-03 08:33] VITALS: BP 114/68; PULSE 65; RESP 14; TEMP 98.4
[2022-03-03] MEDS: SENNOSIDES-DOCUSATE SODIUM 1 EACH TAB PO SCH (09:39)
== END 2022-03-03 15:58 | disposition home or self-care (01) | DRG 788 ==
LOC: 4FBP 05:55
PROVIDERS: ADMIT Obstetrics & Gynecology; ATTEND Obstetrics & Gynecology
PROC: 3E033VJ Introduction of Other Hormone into Peripheral Vein, Percutaneous Approach (ICD-10-PCS; 2022-02-28)
PROC: 10907ZC Drainage of Amniotic Fluid, Therapeutic from Products of Conception, Via Natural or Artificial Opening (ICD-10-PCS; 2022-02-28)
PROC: 3E0134Z Introduction of Serum, Toxoid and Vaccine into Subcutaneous Tissue, Percutaneous Approach (ICD-10-PCS; 2022-02-28)
PROC: 10D00Z1 Extraction of Products of Conception, Low, Open Approach (ICD-10-PCS; principal; 2022-02-28 18:11)
DX: O33.3XX0 Maternal care for disproportion due to outlet contraction of pelvis, not applicable or unspecified (principal); J45.909 Unspecified asthma, uncomplicated; O75.81 Maternal exhaustion complicating labor and delivery; O99.52 Diseases of the respiratory system complicating childbirth; Z28.310 Unvaccinated for COVID-19; Z3A.39 39 weeks gestation of pregnancy; Z37.0 Single live birth; Z23 Encounter for immunization; Z79.899 Other long term (current) drug therapy
CPT/HCPCS: 85025; 86850; 86900; 86901; 90471; 90707

== ENCOUNTER 2024-04-10 22:00 | Emergency (ER) | payer OTHER ==
[2024-04-10 22:18] VITALS: TEMP 98.5
[2024-04-10] MEDS: ACETAMINOPHEN TAB 325 MG TAB PO STA (22:43)
[2024-04-10] MEDS: KETOROLAC 15 MG/ML 1 ML VIAL IM STA (22:44)
--- NOTE | 2024-04-10 22:48 | ED ---
General Adult HPI - General Chief complaint: Extremity Injury, Lower Stated complaint: Left Foot/Ankle Injury Time Seen by Provider: 04/10/24 22:19 Source: patient Mode of arrival: ambulatory Limitations: no limitations - History of Present Illness Initial comments: Patient is a healthy 28-year-old female presenting today for left foot injury. At 2:00 this afternoon patient was walking down the steps and on her left foot in an inverted position. She was able to ambulate afterwards however this evening around 8:00 she was lifting her son and had worsening pain in the foot and was unable to ambulate. No meds prior to arrival. Denies numbness or tingling. Endorses mild swelling. Denies ankle pain. No allergies. Patient is currently breast-feeding. - Related Data Home Medications Medication Instructions Recorded Confirmed Famotidine [Pepcid] 20 mg PO BID 02/03/21 02/08/22 Igt-Wwcz-Ilwej Acid 1 cap PO DAILY 07/27/21 02/08/22 [-U Capsule (formulary)] Previous Rx's Medication Instructions Recorded Ibuprofen [Motrin] 600 mg PO Q6H #40 tab 03/02/22 oxyCODONE HCL [OxyIR] 5 mg PO Q4HR PRN #18 tab 03/02/22 Ketorolac [Toradol] 10 mg PO Q8HR #12 tab 04/10/24 Allergies Allergy/AdvReac Type Severity Reaction Status Date / Time No Known Allergies Allergy Verified 04/10/24 22:18 Review of Systems ROS Statement: Those systems with pertinent positive or pertinent negative responses have been documented in the HPI. ROS Other: All systems not noted in ROS Statement are negative. Past Medical History Past Medical History: Asthma Additional Past Medical History / Comment(s): FX RT ARM, SPLINTED AND SURGERY. PREVIOUS FX OF LEFT ARM AT AGE 7 History of Any Multi-Drug Resistant Organisms: None Reported Past Surgical History: Orthopedic Surgery Past Anesthesia/Blood Transfusion Reactions: No Reported Reaction Additional Past Anesthesia/Blood Transfusion Reaction / Comment(s): NO FAMILY HX OF PROBLEMS Past Psychological History: No Psychological Hx Reported Smoking Status: Never smoker Past Alcohol Use History: None Reported Past Drug Use History: None Reported - Past Family History Mother Family Medical History: No Reported History General Exam - General Exam Comments Initial Comments: PE: CONSTITUTIONAL: No apparent distress, well appearing SKIN: Warm, dry, pallor lacerations or bruising EYES: Pupils are equally round, extraocular movements intact without nystagmus, clear conjunctiva, non-icteric sclera HENT: Normocephalic, atraumatic, moist mucus membranes, oropharynx clear without exudates NECK: , Full range of motion, normal appearance PULMONARY: Respirations unlabored CARDIOVASCULAR: Extremities well-perfused, 2+ DP pulse in the distal left lower extremity MUSCULOSKELETAL: Extremities have no gross deformity, or redness, mild swelling to the dorsal aspect of the left foot with tenderness palpation of the navicular region, pain with dorsiflexion of the left ankle, less than 2-second capillary refill, sensation intact throughout NEUROLOGIC:_a/o x 3, GCS 15, normal mentation and speech. PSYCHIATRIC:_normal mood and affect, thought process is clear and linear Limitations: no limitations Course Vital Signs 04/10/24 04/11/24 22:14 00:34 Temperature 98.5 F Pulse Rate 106 H 83 Respiratory 20 18 Rate Blood Pressure 130/84 130/83 O2 Sat by Pulse 100 98 Oximetry Procedures - Orthopedic Splinting/Casting Injury #1 Side: left Lower Extremity Injury Location: foot Lower Extremity Immobilizer: posterior splint, stirrup splint Other Orthopedic Equipment: crutches Medical Decision Making - Medical Decision Making Was pt. sent in by a medical professional or institution (VANDA Dasilva, BUSINESS ADMINISTRATION TEACHER, urgent care, hospital, or longterm...) When possible be specific @ -[No] Did you speak to anyone other than the patient for history (EMS, parent, family, police, friend...)? What history was obtained from this source @ -[No] Did you review nursing and triage notes (agree or disagree)? Why? @ -[I reviewed and agree with nursing and triage notes] Were old charts reviewed (outside hosp., previous admission, EMS record, old EKG, old radiological studies, urgent care reports/EKG's, longterm records)? Report findings @ -Medical records reviewed, last visit patient's chart was [employer] in 2021 Differential Diagnosis (chest pain, altered mental status, abdominal pain women, abdominal pain men, vaginal bleeding, weakness, fever, dyspnea, syncope, headache, dizziness, GI bleed, back pain, seizure, CVA, palpatations, mental health, musculoskeletal)? @Differential Musculoskeletal Muscular strain, contusion, ligament sprain, fracture, arthritis, muscle spasm, nerve compression... This is not meant to be in all inclusive list EKG interpreted by me (3pts min.). @ -[As above] X-rays interpreted by me (1pt min.). @Personally reviewed patient's x-rays. I do not see evidence of fracture or dislocation of the ankle, I do not see evidence of fracture in the foot however there is potentially some displacement tarsometatarsal joint CT interpreted by me (1pt min.). @ -[None done] U/S interpreted by me (1pt. min.). @ -[None done] What testing was considered but not performed or refused? (CT, X-rays, U/S, labs)? Why? @ -[None] What meds were considered but not given or refused? Why? @ -[None] Did you discuss the management of the patient with other professionals (professionals i.e. , PA, BUSINESS ADMINISTRATION TEACHER, lab, RT, psych nurse, director social welfare, admiralty lawyer, teacher, information assurance officer, casework specialist)? Give summary @ -[No] Was smoking cessation discussed for >3mins.? @ -[No] Was critical care preformed (if so, how long)? @ -[No] Were there social determinants of health that impacted care today? How? (Homelessness, low income, unemployed, alcoholism, drug addiction, transportation, low edu. Level, literacy, decrease access to med. care, assisted, rehab)? @ -[No] Was there de-escalation of care discussed even if they declined (Discuss DNR or withdrawal of care, Hospice)? @ -[No] What co-morbidities impacted this encounter? (DM, HTN, Smoking, COPD, CAD, Cancer, CVA, ARF, Chemo, Hep., AIDS, mental health diagnosis, sleep apnea, morbid obesity)? @ -[None] Was patient admitted / discharged? Hospital course, mention meds given and route, prescriptions, significant lab abnormalities, going to OR and other pertinent info. @Discharge- patient is a 28-year-old female presenting today for left foot injury after landing on an inverted foot. On my assessment dorsal aspect of left foot is tender to palpation without deformity, mild swelling. Neurovascularly intact. Plan for Tylenol, Toradol and plain films. Patient agreeable with plan of care. Pt endorsed improvement in pain on reassessment. Attempted to ambulate after pain medications however unable to bear weight due to pain. On my review of foot XR, concern for potentially some displacement tarsometatarsal joint and, combined with inability to bear weight, potential ligamentous injury of the foot, such as lisfranc injury, so placed pt in posterior short leg and stirrup splint, will make non weight bearing. Post splint Check shows extremity neurovascularly intact. Plain films taking an extended period of time for radiologist read and pt would like to go home to her children. I discussed with her discharge prior to radiologist read, can check mychart or call ED in the morning for final read results. Directed her to remain nonweightbearing and follow up with ortho regardless. Pt agreeable with plan. Has seen Dr. Taylor in the past so we will follow-up with him or his partner on-call, Dr. Bautista. In my medical judgment there is currently no evidence of an immediate life- threatening or surgical condition. Discharge is therefore indicated at this time. [Discharge treatment instructions, follow up instructions, and appropriate emergency department return precautions were discussed with the patient and/or medical decision maker. Patient and/or medical decision maker expressed understanding of and agreed with the treatment plan, follow up instructions, and emergency department return precaution. All patient's and/or medical decision maker's questions were answered.] Undiagnosed new problem with uncertain prognosis? @ -[No] Drug Therapy requiring intensive monitoring for toxicity (Heparin, Nitro, Insulin, Cardizem)? @ -[No] Were any procedures done? @ -[No] Diagnosis/symptom? @Left foot sprain Acute, or Chronic, or Acute on Chronic? @Acute Uncomplicated (without systemic symptoms) or Complicated (systemic symptoms)? uncomplicated Side effects of treatment? @ -[No] Exacerbation, Progression, or Severe Exacerbation? @ -[No] Poses a threat to life or bodily function? How? (Chest pain, [place], [place], pneumonia, PE, COPD, DKA, ARF, appy, cholecystitis, CVA, Diverticulitis, Homicidal, Suicidal, threat to staff... and all critical care pts) Yes, if left unaddressed or untreated could result in permanent disability or pain chronic pain Disposition Clinical Impression: Injury of left foot Disposition: HOME SELF-CARE Condition: Good Additional Instructions: Every disease is a spectrum and a small chance still exists that a serious condition could develop, for this reason, please monitor yourself closely for new, changing or worsening symptoms, uncontrolled pain, numbness, excessive swelling, pale color, if your foot becomes cold to the touch inability to tolerate/keep down fluids or your medications, inability to follow up with outpatient providers as instructed and should you experience these symptoms or should you have any further concerns for your wellbeing please return to the ED or call 911 immediately. Please do not walk or bear weight on your affected foot until seen by orthopedics and cleared by them Please ice and elevate your foot for 20 minutes every 3-4 hours as needed for pain control Your pain can be treated with ibuprofen and acetaminophen. You can take up to 400-600 mg of ibuprofen (Advil, Motrin) 3 times daily (every 8 hours) but can also use lower doses if this relieves your pain. Some people prefer naproxen (Aleve, Naprosyn) which can be taken in doses of 500 mg up to twice a day. Do not take both of these medicines together, and do not combine either with ketorolac (Toradol), meloxicam (Mobic), or indomethacin (Tivorbex). Some people can develop stomach discomfort with higher doses of either ibuprofen or naproxen, if this develops decrease your dose or stop taking it. If you need to take this dose daily for more than a week, please schedule an appointment for re-evaluation with your PCP. Please take these medications with food. You can take up to 1000 mg of acetaminophen (Tylenol) every 6 hours. Be careful as this is included in some medicines like Nyquil, [place], Percocet, Vicodin, STANBACK, Goody's Powders, and Excedrin. You can also use lidocaine patches for topical pain. You can purchase 4% patches over the counter at most drug stores. These can be helpful for pain from your muscles or bones. PLEASE call your primary care physician as soon as possible to arrange / discuss plan for followup appointment. Appointment in the next 1-3 days is strongly encouraged if possible. PLEASE let us know here before you leave if there is anything further we can do to be of any assistance. Take care and feel Better! Prescriptions: Ketorolac [Toradol] 10 mg PO Q8HR #12 tab Is patient prescribed a controlled substance at d/c from ED?: No Referrals: Geovani Gorman DO [Primary Care Provider] - 1-2 days Hiram Taylor MD [Medical Doctor] - 1-2 days Ramon Bautista MD [STAFF PHYSICIAN] - 1-2 days
[2024-04-11 00:35] VITALS: BP 130/83; PULSE 83; RESP 18
--- NOTE | 2024-04-11 01:58 | XR ---
EXAM: XR Left Foot Complete, 3 or More Views CLINICAL HISTORY: ITS.REASON XR Reason: rolled foot, dorsal ft pain, TTP navicular region TECHNIQUE: Frontal, lateral and oblique views of the left foot. COMPARISON: No relevant prior studies available. FINDINGS: Bones/joints: Unremarkable. No acute fracture. No dislocation. Soft tissues: Unremarkable. No radiopaque foreign body. IMPRESSION: Normal left foot x-rays.
--- NOTE | 2024-04-11 01:58 | XR ---
EXAM: XR Left Ankle Complete, 3 or More Views CLINICAL HISTORY: ITS.REASON XR Reason: rolled foot, dorsal ft pain, TTP navicular region TECHNIQUE: Frontal, lateral and oblique views of the left ankle. COMPARISON: No relevant prior studies available. FINDINGS: Bones/joints: Unremarkable. No acute fracture. No dislocation. Soft tissues: Unremarkable. IMPRESSION: Normal left ankle x-rays.
== END 2024-04-11 00:35 | disposition home or self-care (01) ==
LOC: EC 22:00
DX: S99.922A Unspecified injury of left foot, initial encounter (principal); W10.8XXA Fall (on) (from) other stairs and steps, initial encounter; Y93.01 Activity, walking, marching and hiking
CPT/HCPCS: 73610; 73630; 99283; 96372; 29515; J1885

== ENCOUNTER → 2024-06-24 | Outpatient (CLI) | payer OTHER ==
[2024-06-24 15:05] LABS: Basophils # (A) 0.08 X 10*3/uL (0.00-0.10); Basophils % (A) 0.8 %; Eosinophils % (A) 9.1 %; HCT 38.9 % (37.2-46.3); HGB 12.6 g/dL (12.0-15.0); Lymphocytes # (A) 2.02 X 10*3/uL (0.90-5.00); Lymphocytes % (A) 20.4 %; MCH 27.4 pg (27.0-32.0); MCHC 32.4 g/dL (32.0-37.0); MCV 84.6 FL (80.0-97.0); Mean Platelet Volume 9.3 FL (9.5-12.2); Monocytes % (A) 8.1 %; NRBC Per 100 WBC 0 X 10*3/uL (0.00-0.01); Neutrophils # (A) 6.07 X 10*3/uL (1.80-7.70); Neutrophils % (A) 61.2 %; Platelet Count 364 X 10*3/uL (140-440); RDW 15.8 % (11.5-14.5); WBC 9.91 X 10*3/uL (4.50-10.00)
[2024-06-24 15:34] LABS: ALT 39 U/L (8-44); AST 30 U/L (13-35); Albumin 4.2 g/dL (3.8-4.9); Albumin/Globulin Ratio 1.62 Ratio (1.60-3.17); Alkaline Phosphatase 119 U/L (41-126); BUN/Creat Ratio 16.86 Ratio (12.00-20.00); Blood Urea Nitrogen 11.8 mg/dL (9.0-27.0); Calcium 9.6 mg/dL (8.7-10.3); Carbon Dioxide 23.3 mmol/L (21.6-31.8); Chloride 104 mmol/L (96-109); Globulin 2.6 g/dL (1.6-3.3); Glucose 126 mg/dL (70-110); Potassium 4.3 mmol/L (3.5-5.5); Sodium 138 mmol/L (135-145); Total Bilirubin 0.4 mg/dL (0.3-1.2); Total Protein 6.8 g/dL (6.2-8.2)
== END | disposition home or self-care (01) ==
LOC: LABWHC1 11:54
PROVIDERS: ATTEND Internal Medicine Critical Care Medicine
DX: E66.9 Obesity, unspecified (principal); Z68.26 Body mass index [BMI] 26.0-26.9, adult
CPT/HCPCS: 36415; 80053; 84439; 84443; 85025

== ENCOUNTER 2024-08-12 10:06 | Observation (INO) | payer OTHER ==
[2024-08-12] MEDS: methylPREDNISolone SOD SUCCI 125 MG/2 ML VIAL IV STA (10:39)
[2024-08-12] MEDS: SODIUM CHLORIDE 0.9% 1,000 ML IV ONE (10:41)
[2024-08-12] MEDS: MAGNESIUM SULFATE-D5W PMX 1 GM in DEXTROSE/WATER 1 100ML.BAG IVPB ONE ×2 (10:43→11:54)
[2024-08-12 10:49] LABS: Basophils # (A) 0.12 10*3/uL (0.00-0.10); Basophils % (A) 1.3 %; Eosinophils # (A) 0.83 10*3/uL (0.04-0.35); Eosinophils % (A) 9.1 %; HCT 38.9 % (37.2-46.3); HGB 13.1 g/dL (12.0-15.0); Lymphocytes # (A) 1.47 10*3/uL (0.90-5.00); Lymphocytes % (A) 16.1 %; MCH 27.8 pg (27.0-32.0); MCHC 33.7 g/dL (32.0-37.0); MCV 82.4 fL (80.0-97.0); Mean Platelet Volume 8.5 fL (9.5-12.2); Monocytes # (A) 0.93 10*3/uL (0.20-1.00); Monocytes % (A) 10.2 %; Neutrophils # (A) 5.78 10*3/uL (1.80-7.70); Neutrophils % (A) 63.1 %; Platelet Count 355 10*3/uL (140-440); RBC 4.72 10*6/uL (4.10-5.20); RDW 15.6 % (11.5-14.5); WBC 9.15 10*3/uL (4.50-10.00)
[2024-08-12] MEDS: IPRATROPIUM-ALBUTEROL 3 ML NEB INHALATION STA (10:49)
[2024-08-12 11:10] LABS: ALT 49 U/L (4-34); AST 39 U/L (14-36); African American GFR (CKD) >90 (>60 ml/min/1.73 sqM); Albumin 4.6 g/dL (3.5-5.0); Alkaline Phosphatase 104 U/L (38-126); Anion Gap 14 mmol/L; Blood Urea Nitrogen 9 mg/dL (7-17); Calcium 10.3 mg/dL (8.4-10.2); Carbon Dioxide 20 mmol/L (22-30); Chloride 104 mmol/L (98-107); Glucose 112 mg/dL (74-99); Non-African American GFR(CKD) >90 (>60 ml/min/1.73 sqM); Potassium 4.2 mmol/L (3.5-5.1); Sodium 138 mmol/L (137-145); Total Bilirubin 0.6 mg/dL (0.2-1.3); Total Protein 7.6 g/dL (6.3-8.2)
--- NOTE | 2024-08-12 11:20 | XR ---
EXAMINATION TYPE: XR chest 2V DATE OF EXAM: 08/12/2024 11:11 AM COMPARISON: Chest radiographs from 02/03/2021 TECHNIQUE: XR chest 2V Frontal and lateral views of the chest. CLINICAL INDICATION:Female, 28 years old with history of sob; FINDINGS: Lungs/Pleura: There is no evidence of pleural effusion, focal consolidation, or pneumothorax. Pulmonary vascularity: Unremarkable. Heart/mediastinum: Cardiomediastinal silhouette is unremarkable. Musculoskeletal: No acute osseous pathology. IMPRESSION: No acute cardiopulmonary disease/process. [facility], , 08/12/2024 11:17 AM
--- NOTE | 2024-08-12 11:31 | ED ---
General Adult HPI - General Chief complaint: Shortness of Breath Stated complaint: GIULIANA Time Seen by Provider: 08/12/24 10:12 Source: patient, RN notes reviewed Mode of arrival: ambulatory Limitations: no limitations - History of Present Illness Initial comments: 28-year-old female presents emergency department chief complaint of shortness of breath. Patient states that she has been having increasing asthma issues over the last couple weeks she has been seen by urgent care twice was given a shot of steroids, states was seen a second time was given oral steroid Medrol Dosepak without significant improvement. Patient states she has been using her tr eatments at home without significant relief. - Related Data Home Medications Medication Instructions Recorded Confirmed Albuterol Nebulized [Ventolin 2.5 mg INHALATION RT-Q4H PRN 08/12/24 08/12/24 Nebulized] Albuterol Sulfate [Albuterol 2 puff PO RT-Q4H PRN 08/12/24 08/12/24 Sulfate Hfa] SUMAtriptan succinate [Imitrex] 25 mg PO BID PRN 08/12/24 08/12/24 Allergies Allergy/AdvReac Type Severity Reaction Status Date / Time No Known Allergies Allergy Verified 08/12/24 13:43 Review of Systems ROS Statement: Those systems with pertinent positive or pertinent negative responses have been documented in the HPI. ROS Other: All systems not noted in ROS Statement are negative. Past Medical History Past Medical History: Asthma Additional Past Medical History / Comment(s): FX RT ARM, SPLINTED AND SURGERY. PREVIOUS FX OF LEFT ARM AT AGE 7 History of Any Multi-Drug Resistant Organisms: None Reported Past Surgical History: Orthopedic Surgery Past Anesthesia/Blood Transfusion Reactions: No Reported Reaction Additional Past Anesthesia/Blood Transfusion Reaction / Comment(s): NO FAMILY HX OF PROBLEMS Past Psychological History: No Psychological Hx Reported Smoking Status: Never smoker Past Alcohol Use History: Occasional Past Drug Use History: Marijuana - Past Family History Mother Family Medical History: No Reported History General Exam Limitations: no limitations General appearance: alert, in no apparent distress Head exam: Present: atraumatic, normocephalic, normal inspection Eye exam: Present: normal appearance, PERRL, EOMI. Absent: scleral icterus, conjunctival injection, periorbital swelling ENT exam: Present: normal exam, normal oropharynx, mucous membranes moist Neck exam: Present: normal inspection, full ROM. Absent: tenderness, meningi smus, lymphadenopathy Respiratory exam: Present: respiratory distress, wheezes, decreased breath sounds. Absent: normal lung sounds bilaterally, rales, rhonchi, stridor Cardiovascular Exam: Present: normal rhythm, tachycardia, normal heart sounds. Absent: systolic murmur, diastolic murmur, rubs, gallop, clicks GI/Abdominal exam: Present: soft, normal bowel sounds. Absent: distended, tenderness, guarding, rebound, rigid Course Vital Signs 08/12/24 08/12/24 08/12/24 10:08 10:43 10:50 Temperature 98.1 F Pulse Rate 114 H 99 101 H Respiratory 18 24 Rate Blood Pressure 107/66 O2 Sat by Pulse 97 97 Oximetry 08/12/24 08/12/24 08/12/24 11:06 11:56 12:19 Temperature Pulse Rate 102 H 92 108 H Respiratory Rate Blood Pressure O2 Sat by Pulse Oximetry 08/12/24 12:51 Temperature Pulse Rate 105 H Respiratory 20 Rate Blood Pressure 104/65 O2 Sat by Pulse 95 Oximetry Medical Decision Making - Medical Decision Making Was pt. sent in by a medical professional or institution (, PA, CANDY COUNTER CLERK, urgent care, hospital, or fdc...) When possible be specific @ -No Did you speak to anyone other than the patient for history (EMS, parent, family, police, friend...)? What history was obtained from this source @ -No Did you review nursing and triage notes (agree or disagree)? Why? @ -I reviewed and agree with nursing and triage notes Were old charts reviewed (outside hosp., previous admission, EMS record, old EKG, old radiological studies, urgent care reports/EKG's, fdc records)? Report findings @ -No old charts were reviewed Differential Diagnosis (chest pain, altered mental status, abdominal pain women, abdominal pain men, vaginal bleeding, weakness, fever, dyspnea, syncope, headache, dizziness, GI bleed, back pain, seizure, CVA, palpatations, mental health, musculoskeletal)? @ -Differential Dyspnea: Coronary syndrome, arrhythmia, tamponade, asthma, COPD, pulmonary embolism, pneumonia, pneumothorax, pulmonary effusion, anaphylaxis, diabetic ketoacidosis, flailed chest, pulmonary contusion, diaphragmatic rupture, anemia, neuromuscular, this is not meant to be an all-inclusive list. EKG interpreted by me (3pts min.). @ -None X-rays interpreted by me (1pt min.). @ -Chest x-ray shows no evidence of pneumonia CT interpreted by me (1pt min.). @ -None done U/S interpreted by me (1pt. min.). @ -None done What testing was considered but not performed or refused? (CT, X-rays, U/S, labs)? Why? @ -None What meds were considered but not given or refused? Why? @ -None Did you discuss the management of the patient with other professionals (professionals i.e. , PA, CANDY COUNTER CLERK, lab, RT, psych nurse, social media content manager, performance test consultant, teacher, housing officer, rn field case manager)? Give summary @ -Dr perea for admission Was smoking cessation discussed for >3mins.? @ -No Was critical care preformed (if so, how long)? @ -No Were there social determinants of health that impacted care today? How? (Homelessness, low income, unemployed, alcoholism, drug addiction, transportation, low edu. Level, literacy, decrease access to med. care, detention, rehab)? @ -No Was there de-escalation of care discussed even if they declined (Discuss DNR or withdrawal of care, Hospice)? DNR status @ -No What co-morbidities impacted this encounter? (DM, HTN, Smoking, COPD, CAD, Cancer, CVA, ARF, Chemo, Hep., AIDS, mental health diagnosis, sleep apnea, morbid obesity)? @ -[Asthma Was patient admitted / discharged? Hospital course, mention meds given and route, prescriptions, significant lab abnormalities, going to OR and other pertinent info. @ -Admitted patient's had multiple breathing treatments, magnesium, terbutaline steroids with some improvement continues to have wheezing, dyspnea and now tachycardia. Patient be admitted for steroids, pulmonary evaluation. There is no signs of infection and does not require antibiotics at this time. Undiagnosed new problem with uncertain prognosis? @ -No Drug Therapy requiring intensive monitoring for toxicity (Heparin, Nitro, Insulin, Cardizem)? @ -No Were any procedures done? @ -No Diagnosis/symptom? @ -Acute asthma exacerbation Acute, or Chronic, or Acute on Chronic? @ -Acute Uncomplicated (without systemic symptoms) or Complicated (systemic symptoms)? @ -Complicated Side effects of treatment? @ -No Exacerbation, Progression, or Severe Exacerbation? @ -No Poses a threat to life or bodily function? How? (Chest pain, [place], [place], pneumonia, PE, COPD, DKA, ARF, appy, cholecystitis, CVA, Diverticulitis, Homicidal, Suicidal, threat to staff... and all critical care pts) @ -Yes asthma causing respiratory failure arrest - Lab Data Result diagrams: 08/12/24 10:40 08/12/24 10:40 Lab Results 08/12/24 08/12/24 Range/Units 10:40 10:40 WBC 9.15 (4.50-10.00) 10*3/uL RBC 4.72 (4.10-5.20) 10*6/uL Hgb 13.1 (12.0-15.0) g/dL Hct 38.9 (37.2-46.3) % MCV 82.4 (80.0-97.0) fL MCH 27.8 (27.0-32.0) pg MCHC 33.7 (32.0-37.0) g/dL Plt Count 355 (140-440) 10*3/uL MPV 8.5 L (9.5-12.2) fL Immature Gran % (Auto) 0.2 % Neutrophils % 63.1 % Lymphocytes % 16.1 % Monocytes % 10.2 % Eosinophils % 9.1 % Basophils % 1.3 % Immature Gran # 0.02 (0.00-0.04) 10*3/uL Neutrophils # 5.78 (1.80-7.70) 10*3/uL Lymphocytes # 1.47 (0.90-5.00) 10*3/uL Monocytes # 0.93 (0.20-1.00) 10*3/uL Eosinophils # 0.83 H (0.04-0.35) 10*3/uL Basophils # 0.12 H (0.00-0.10) 10*3/uL Sodium 138 (137-145) mmol/L Potassium 4.2 (3.5-5.1) mmol/L Chloride 104 (98-107) mmol/L Carbon Dioxide 20 L (22-30) mmol/L Anion Gap 14 mmol/L BUN 9 (7-17) mg/dL Creatinine 0.65 (0.52-1.04) mg/dL Est GFR (CKD-EPI)AfAm >90 (>60 ml/min/1.73 sqM) Est GFR (CKD-EPI)NonAf >90 (>60 ml/min/1.73 sqM) Glucose 112 H (74-99) mg/dL Calcium 10.3 H (8.4-10.2) mg/dL Total Bilirubin 0.6 (0.2-1.3) mg/dL AST 39 H (14-36) U/L ALT 49 H (4-34) U/L Alkaline Phosphatase 104 (38-126) U/L Total Protein 7.6 (6.3-8.2) g/dL Albumin 4.6 (3.5-5.0) g/dL Disposition Clinical Impression: Asthma exacerbation Disposition: ADMITTED IP TO THIS HOSP Condition: Fair Time of Disposition: 13:12
[2024-08-12] MEDS: TERBUTALINE 1 MG/ML VIAL SQ STA (11:55)
[2024-08-12] MEDS: ALBUTEROL NEBULIZED 2.5 MG/3 ML INHALATION STA (11:56)
[2024-08-12] MEDS ORDERED: ONDANSETRON 4 MG/2 ML VIAL IVP PRN (13:12)
[2024-08-12] MEDS ORDERED: ACETAMINOPHEN TAB 325 MG TAB PO PRN (13:12)
[2024-08-12] MEDS ORDERED: NALOXONE 0.4 MG/ML 1 ML VIAL IV PRN (13:12)
[2024-08-12] MEDS ORDERED: IPRATROPIUM-ALBUTEROL 3 ML NEB INHALATION PRN (13:14)
[2024-08-12] MEDS: IPRATROPIUM-ALBUTEROL 3 ML NEB INHALATION SCH (15:06)
--- NOTE | 2024-08-12 15:37 | P.HPIM ---
History of Present Illness H&P Date: 08/12/24 Chief Complaint: Shortness of breath Patient is a 28-year-old female with asthma presents to the ER with worsening shortness of breath and wheezing over the past 3 weeks. Patient does use albuterol rescue inhaler and nebulizer at home however with no symptomatic relief over the past 3 weeks. Patient did visit urgent care 2 times over the past 3 weeks 1 time was given a steroid shot and the second time was given a Medrol Dosepak. Patient reported that her symptoms improved slightly after the Medrol Dosepak. Patient's fianc had an episode of pneumonia about 2 to 3 weeks ago. Patient did have an severe episode of asthma about 2 years ago where she had to be hospitalized for 3 days. Patient also reports a dry cough and chest tightness. Denies any recent travel history. Denies any use of oral contraceptive pills. Denies fever, chills, chest pain, palpitations, nausea/vomiting, diarrhea, constipation, dysuria, lower extremity edema. Last menstrual period 2 weeks ago. ED documentation reviewed. In the ED patient was treated with albuterol nebulized x 1, DuoNeb x 1, mag sulfate 2 g, Solu-Medrol 125 mg IV x 1, 1 L bolus of normal saline, 0.25 mg terbutaline x 1 Vitals on admission heart rate 105, respiratory rate 20, blood pressure 104/65, O2 sat 95% on room air CXR shows no acute cardiopulmonary disease/process Labs on admission show WBC 9.15, hemoglobin 13.1, hematocrit 38.9, platelet 355, sodium 138, potassium 4.2, chloride 104, carbon dioxide 20, BUN 9, creatinine 0.65, glucose 112, calcium 10.3, AST 39, ALT 49, Alkaline phosphatase 104 Review of systems: Pertinent positives and negatives as discussed in HPI, a complete review of systems was performed and all other systems are negative. PMH: Asthma PSH: No surgical history FMH: No pertinent family history Allergies: No known drug allergies Social history: Tobacco: Does not smoke Alcohol: Occasional alcohol use Recreational drugs: Marijuana Travel: No recent travel history Sick contacts: Becky did have pneumonia about 2 to 3 weeks ago Physical examination: Vital signs reviewed General: nontoxic, no distress, appears at stated age Derm: warm, dry, intact Head: atraumatic, normocephalic, symmetric Eyes: EOMI, anicteric sclera Mouth: no lip lesion, mucus membranes moist Cardiovascular: Regular rate and rhythm, no murmurs Lungs: Diffuse expiratory wheezing across all lung lira, no rales, no crackles or stridor, no accessory muscle use Abdominal: soft, non-tender to palpation Extremities: No cyanosis, clubbing, or pedal edema. Neuro: Alert, Oriented, Gross neurological examination did not reveal any focal deficits. Psych: well appearing, appropriate affect Assessment/Plan: 28-year-old female with a history of asthma is being evaluated for asthma exacerbation. Active: #. Mild intermittent asthma exacerbation Continue DuoNeb every 4 hours and every 2 hours as needed Continue Solu-Medrol 60 mg IV every 6 hours One-time 125 mg IV Solu-Medrol was given in the ED Consult pulmonology Order peak flow #. Eosinophilia Prognostic of future episodes of severe asthma exacerbation, consideration of initiation of interleukin-5 monoclonal antibody inhibitor or IgE inhibitor, defer to pulmonology Eosinophils 0.83 Monitor morning CBC #. Elevated AST and ALT, likely secondary to Nonalcoholic Fatty Liver Disease #. Obesity class II AST 39 ALT 49 Monitor morning CMP F: No restrictions E: Replete as needed N: Regular diet A: Ambulatory DVT prophylaxis: Encourage early ambulation The patient is admitted with an anticipated less than 2 midnight stay for evaluation of asthma exacerbation CODE STATUS: Full code Discussed with: Patient and family Anticipated discharge place: Home I saw and evaluated the patient during the estrada and critical portions of this encounter, and discussed the case in detail with the resident author of this note, I agree with the Assessment and Plan, and my changes, if any, are highlighted in blue. Past Medical History Past Medical History: Asthma Additional Past Medical History / Comment(s): FX RT ARM, SPLINTED AND SURGERY. PREVIOUS FX OF LEFT ARM AT AGE 7 History of Any Multi-Drug Resistant Organisms: None Reported Past Surgical History: Orthopedic Surgery Past Anesthesia/Blood Transfusion Reactions: No Reported Reaction Additional Past Anesthesia/Blood Transfusion Reaction / Comment(s): NO FAMILY HX OF PROBLEMS Past Psychological History: No Psychological Hx Reported Smoking Status: Never smoker Past Alcohol Use History: Occasional Past Drug Use History: Marijuana - Past Family History Mother Family Medical History: No Reported History Medications and Allergies Home Medications Medication Instructions Recorded Confirmed Type Albuterol Nebulized [Ventolin 2.5 mg INHALATION RT-Q4H PRN 08/12/24 08/12/24 History Nebulized] Albuterol Sulfate [Albuterol 2 puff PO RT-Q4H PRN 08/12/24 08/12/24 History Sulfate Hfa] SUMAtriptan succinate [Imitrex] 25 mg PO BID PRN 08/12/24 08/12/24 History Allergies Allergy/AdvReac Type Severity Reaction Status Date / Time No Known Allergies Allergy Verified 08/12/24 13:43 Physical Exam Osteopathic Statement: *. No significant issues noted on an osteopathic structural exam other than those noted in the History and Physical/Consult. Vitals: Vital Signs Temp Pulse Resp BP Pulse Ox 08/12/24 12:51 105 H 20 104/65 95 08/12/24 12:19 108 H 08/12/24 11:56 92 08/12/24 11:06 102 H 08/12/24 10:50 101 H 08/12/24 10:43 99 24 97 08/12/24 10:08 98.1 F 114 H 18 107/66 97 Intake and Output 08/11/24 08/12/24 08/12/24 22:59 06:59 14:59 Other: Weight 95.254 kg Results CBC & Chem 7: 08/12/24 10:40 08/12/24 10:40 Labs: Abnormal Lab Results - Last 24 Hours (Table) 08/12/24 08/12/24 Range/Units 10:40 10:40 MPV 8.5 L (9.5-12.2) fL Eosinophils # 0.83 H (0.04-0.35) 10*3/uL Basophils # 0.12 H (0.00-0.10) 10*3/uL Carbon Dioxide 20 L (22-30) mmol/L Glucose 112 H (74-99) mg/dL Calcium 10.3 H (8.4-10.2) mg/dL AST 39 H (14-36) U/L ALT 49 H (4-34) U/L
[2024-08-12] MEDS: methylPREDNISolone SOD SUCCI 125 MG/2 ML VIAL IV SCH (18:04)
[2024-08-12] MEDS ORDERED: SUMAtriptan succinate 25 MG TAB PO PRN (20:17)
[2024-08-12] MEDS: ASPIRIN-ACET-CAFF 250-250-65MG 1 EACH TAB PO PRN (20:24)
[2024-08-13 00:33] VITALS: TEMP 98.1
--- NOTE | 2024-08-13 00:49 | P.CNPUL ---
History of Present Illness Consult date: 08/13/24 Requesting physician: Geraldo Akbar Reason for consult: asthma Chief complaint: Shortness of breath, cough, wheezing History of present illness: Patient is a 28-year-old female with past medical history significant for asthma. Her primary care provider is Dr. Gorman. She also follows with Dr. Flores in the pulmonary office. She has mild intermittent bronchial asthma which is normally well-controlled. Uses an as needed albuterol rescue inhaler, as well as, albuterol nebs when needed. Her last hospitalization for asthma was approximately 3 or 4 years ago. Originally, diagnosed when she was in middle school. Denies any known identifiable triggers for asthma. she does not smoke t obacco products. Approximately, 1 month ago her household was sick with URI- like symptoms. She went to a local urgent care center, she was given a steroid shot. Symptoms did not improve, returned to the clinic and was given a Medrol Dosepak with antibiotics. This reportedly helped, but worsened again when stopping steroids. She has been using her albuterol rescue inhaler and nebs without much relief. Presented to emergency department yesterday morning. She was given multiple DuoNeb treatments, IV magnesium, and loaded with IV Solu- Medrol. Workup in the ED including a chest x-ray which does not show any acute cardiopulmonary process. CBC unremarkable for leukocytosis. Eosinophilia. C MP: Sodium 138, potassium 4.2, chloride 104, serum bicarb 20, BUN 9, creatinine 0.65, glucose 112. LFTs unremarkable. Patient is currently being evaluated on the observation unit. She is resting comfortably on room air. Nontachypneic. No accessory muscle use. Good air movement. Talking in complete sentences. Endorsing shortness of breath, wheezing, and chest tightness. Has a dry cough. Denies any sputum production or hemoptysis. She denies any fevers or chills. Denies any nausea, vomiting, diarrhea. Vital signs have been stable. Review of Systems Constitutional: Denies chills, Denies fatigue, Denies fever, Denies night sweats, Denies poor appetite, Denies weight gain, Denies weight loss Ears, nose, mouth and throat: Denies headache, Denies nasal congestion, Denies nasal discharge, Denies post-nasal drip, Denies sinus pain, Denies sinus pressure, Denies sore throat Cardiovascular: Reports dyspnea on exertion, Denies chest pain, Denies leg edema, Denies lightheadedness, Denies orthopnea, Denies palpitations, Denies paroxysmal nocturnal dyspnea, Denies syncope Respiratory: Reports as per HPI Gastrointestinal: Denies abdominal pain, Denies change in bowel habits, Denies diarrhea, Denies nausea, Denies vomiting Genitourinary: Denies dysuria Musculoskeletal: Denies limitation of motion Integumentary: Denies rash Neurological: Reports headaches, Denies seizures, Denies syncope Psychiatric: Denies anxiety, Denies depression Allergic/Immunologic: Reports wheezing, Denies allergic rhinitis, Denies seasonal allergies Past Medical History Past Medical History: Asthma Additional Past Medical History / Comment(s): FX RT ARM, SPLINTED AND SURGERY. PREVIOUS FX OF LEFT ARM AT AGE 7 History of Any Multi-Drug Resistant Organisms: None Reported Past Surgical History: Orthopedic Surgery Past Anesthesia/Blood Transfusion Reactions: No Reported Reaction Additional Past Anesthesia/Blood Transfusion Reaction / Comment(s): NO FAMILY HX OF PROBLEMS Past Psychological History: No Psychological Hx Reported Smoking Status: Never smoker Past Alcohol Use History: Occasional Past Drug Use History: Marijuana - Past Family History Mother Family Medical History: No Reported History Medications and Allergies Home Medications Medication Instructions Recorded Confirmed Type Albuterol Nebulized [Ventolin 2.5 mg INHALATION RT-Q4H PRN 08/12/24 08/12/24 History Nebulized] Albuterol Sulfate [Albuterol 2 puff PO RT-Q4H PRN 08/12/24 08/12/24 History Sulfate Hfa] SUMAtriptan succinate [Imitrex] 25 mg PO BID PRN 08/12/24 08/12/24 History Allergies Allergy/AdvReac Type Severity Reaction Status Date / Time No Known Allergies Allergy Verified 08/12/24 13:43 Physical Exam Vitals: Vital Signs Temp Pulse Pulse Resp BP BP Pulse Ox 08/12/24 23:50 98 08/12/24 23:39 100 08/12/24 20:00 98.3 F 119 H 12 129/73 95 08/12/24 19:56 112 H 08/12/24 19:46 114 H 08/12/24 15:19 113 H 08/12/24 15:17 97.9 F 112 H 20 113/69 98 08/12/24 15:06 102 H 08/12/24 12:51 105 H 20 104/65 95 08/12/24 12:19 108 H 08/12/24 11:56 92 08/12/24 11:06 102 H 08/12/24 10:50 101 H 08/12/24 10:43 99 24 97 08/12/24 10:08 98.1 F 114 H 18 107/66 97 Intake and Output 08/12/24 08/12/24 08/13/24 14:59 22:59 06:59 Other: Voiding Method Toilet Weight 95.254 kg GENERAL EXAM: Alert, 28-year-old obese female, comfortable in no apparent distress. HEAD: Normocephalic and atraumatic EYES: Normal reaction of pupils, equal size. NOSE: Clear with pink turbinates. No nasal polyps. THROAT: No erythema or exudates. NECK: No masses, no JVD. CHEST: No chest wall deformity. LUNGS: Equal air entry with expiratory wheezing throughout. On room air. No conversational dyspnea or accessory muscle use. CVS: S1 and S2 normal with no audible murmur, regular rhythm. No extra heart sounds. Tachycardic. ABDOMEN: No hepatosplenomegaly, active bowel sounds, no guarding or rigidity. SPINE: No scoliosis or deformity SKIN: No rashes CENTRAL NERVOUS SYSTEM: No focal deficits, tone is normal in all 4 extremities. EXTREMITIES: There is no peripheral edema, clubbing, or cyanosis. Peripheral pulses are intact. Results - Laboratory Findings CBC and BMP: 08/12/24 10:40 08/12/24 10:40 Abnormal lab findings: Abnormal Labs 08/12/24 08/12/24 10:40 10:40 MPV 8.5 L Eosinophils # 0.83 H Basophils # 0.12 H Carbon Dioxide 20 L Glucose 112 H Calcium 10.3 H AST 39 H ALT 49 H - Diagnostic Findings Chest x-ray: image reviewed Assessment and Plan Assessment: Acute exacerbation of mild intermittent asthma Acute dyspnea, secondary to above History of migraines Obesity, with a BMI of 36 kg/m Plan: Currently on room air Chest x-ray reviewed, no acute cardiopulmonary process. No evidence of focal consolidation, pleural effusions, or pneumothoraces. No signs of impending respiratory failure Continue combination of DuoNebs, add Pulmicort and Perforomist inhalations, and IV Solu-Medrol Will hold off on antibiotics Not ready for discharge at this time I have personally seen and examined the patient, performed the documentation and the assessment and plan as written. Number of minutes spent on the visit:20 This dictation was produced using [employer] dictation software please excuse grammatical errors Time with Patient: Greater than 30
[2024-08-13] MEDS: BUDESONIDE 1 MG/2 ML NEBU INHALATION SCH (07:25)
[2024-08-13] MEDS: FORMOTEROL FUMARATE 20 MCG/2 ML NEBU INHALATION SCH (07:41)
[2024-08-13 08:59] VITALS: BP 121/74; PULSE 111; RESP 19
--- NOTE | 2024-08-13 09:44 | P.DS ---
Providers Date of admission: 08/12/24 13:50 Expected date of discharge: 08/13/24 Attending physician: Freddie Barreto MD Consults: 08/12/24 13:12 Consult Physician Urgent Consulting Provider: Toni Jensen Consult Reason/Comments: Asthma exacerbation Do you want consulting provider notified?: Yes Primary care physician: Geovani [facility] Course: #. Mild persistent asthma exacerbation #. Peripheral eosinophilia #. Eczema #. Elevated AST and ALT, likely secondary to Nonalcoholic Fatty Liver Disease #. Obesity class II Hospital Course: Patient is a 28-year-old female with asthma presents to the ER with worsening shortness of breath and wheezing over the past 3 weeks. Vitals on admission heart rate 105, respiratory rate 20, blood pressure 104/65, O2 sat 95% on room air. Labs on admission show WBC 9.15, hemoglobin 13.1, hematocrit 38.9, platelet 355, sodium 138, potassium 4.2, chloride 104, carbon dioxide 20, BUN 9, creatinine 0.65, glucose 112, calcium 10.3, AST 39, ALT 49, Alkaline phosphatase 104. CXR shows no acute cardiopulmonary disease/process. In the ED patient was treated with albuterol nebulized x 1, DuoNeb x 1, mag sulfate 2 g, Solu-Medrol 125 mg IV x 1, 1 L bolus of normal saline, 0.25 mg terbutaline x 1. Patient was admitted for asthma exacerbation, was treated with nebulizers, formoterol, budesonide, steroids. Patient had rapid improvement. Patient's peak flows were 250 both pre and post treatment. Patient was counseled that this is her likely baseline peak flow and that she should follow these closely at home. Case was discussed with pulmonology who did see a counselor patient themselves, they recommend discharging the patient on maintenance Symbicort, Singulair and following up in their office. Patient will also follow-up with PCP. Gen: In NAD, non-toxic HEENT: normocephalic, atraumatic, hearing acuity is intant, mucous membranes moist CVS: perfusing all extremities well, no pitting edema, Respiratory: symmetric chest expansion, no accessory muscle use, end expiratory wheezing on forceful expiration only GI: soft, NTTP, ND, : no suprapubic tenderness, no CVA tenderness MSK/Derm: no rashes, cyanosis Neuro: CN II-XII intact, no motor weakness, Psych: cooperative, euthymic mood, judgment and insight is intact I spent 32 minutes coordinating this discharge Patient Condition at Discharge: Good Plan - Discharge Summary Discharge Rx Participant: No New Discharge Prescriptions: New predniSONE [Deltasone] 40 mg PO DAILY #15 tab Montelukast [Singulair] 10 mg PO DAILY #30 tab Budesonide/Formoterol Fumarate [Symbicort 80-4.5 Mcg Inhaler] 1 puff INHALATION BID #1 each Continue SUMAtriptan succinate [Imitrex] 25 mg PO BID PRN PRN Reason: Migraine Headache Albuterol Nebulized [Ventolin Nebulized] 2.5 mg INHALATION RT-Q4H PRN PRN Reason: Shortness Of Breath Albuterol Sulfate [Albuterol Sulfate Hfa] 2 puff PO RT-Q4H PRN PRN Reason: Shortness Of Breath Discharge Medication List Albuterol Nebulized [Ventolin Nebulized] 2.5 mg INHALATION RT-Q4H PRN 08/12/24 [History] Albuterol Sulfate [Albuterol Sulfate Hfa] 2 puff PO RT-Q4H PRN 08/12/24 [History] SUMAtriptan succinate [Imitrex] 25 mg PO BID PRN 08/12/24 [History] Budesonide/Formoterol Fumarate [Symbicort 80-4.5 Mcg Inhaler] 1 puff INHALATION BID #1 each 08/13/24 [Rx] Montelukast [Singulair] 10 mg PO DAILY #30 tab 08/13/24 [Rx] predniSONE [Deltasone] 40 mg PO DAILY #15 tab 08/13/24 [Rx] Follow up Appointment(s)/Referral(s): Geovani Gorman DO [Primary Care Provider] - 1-2 days Lisa Flores MD [STAFF PHYSICIAN] - 1 Week Discharge Disposition: HOME SELF-CARE
[2024-08-13] MEDS: predniSONE 20 MG TAB PO SCH (10:04)
== END 2024-08-13 11:16 | disposition home or self-care (01) ==
LOC: EC 10:06 → 1SOBS 13:50
PROVIDERS: ADMIT Internal Medicine; ATTEND Internal Medicine
DX: J45.31 Mild persistent asthma with (acute) exacerbation (principal); D72.10 Eosinophilia, unspecified; R74.01 Elevation of levels of liver transaminase levels; G43.909 Migraine, unspecified, not intractable, without status migrainosus; L30.9 Dermatitis, unspecified; E66.812 Obesity, class 2; Z68.36 Body mass index [BMI] 36.0-36.9, adult; Z79.899 Other long term (current) drug therapy
CPT/HCPCS: 96376 ×2; 96361; 96365; 96366; 96372; 96375; 99285; 36415; 94640 ×4; 80053; 85025; 71046; G0378 ×2; J3105; J3475; J7512; J2919 ×2

== ENCOUNTER 2024-08-13 22:45 | Observation (INO) | payer SELFPAY ==
--- NOTE | 2024-08-13 22:57 | ED ---
SOB HPI - General Chief Complaint: Shortness of Breath Stated Complaint: SOB Time Seen by Provider: 08/13/24 22:55 Source: patient, RN notes reviewed, old records reviewed Mode of arrival: ambulatory Limitations: no limitations - History of Present Illness Initial Comments: This is a 28 female to the ER for evaluation of severe asthma exacerbation with recent inpatient hospital admission patient presents to us with difficulty breathing and concern for increasing asthma exacerbation states she was feeling okay when she went home today but much worse currently MD Complaint: shortness of breath, cough -: days(s) Consistency: constant Improves With: nothing Worsens With: exertion Known History Of: asthma Context: recent URI, anxiety, recent illness Associated Symptoms: cough Treatments Prior to Arrival: bronchodilator - Related Data Home Medications Medication Instructions Recorded Confirmed Albuterol Nebulized [Ventolin 2.5 mg INHALATION RT-Q4H PRN 08/12/24 08/12/24 Nebulized] Albuterol Sulfate [Albuterol 2 puff PO RT-Q4H PRN 08/12/24 08/12/24 Sulfate Hfa] SUMAtriptan succinate [Imitrex] 25 mg PO BID PRN 08/12/24 08/12/24 Previous Rx's Medication Instructions Recorded Budesonide/Formoterol Fumarate 1 puff INHALATION BID #1 each 08/13/24 [Symbicort 80-4.5 Mcg Inhaler] Montelukast [Singulair] 10 mg PO DAILY #30 tab 08/13/24 predniSONE [Deltasone] 40 mg PO DAILY #15 tab 08/13/24 Allergies Allergy/AdvReac Type Severity Reaction Status Date / Time No Known Allergies Allergy Verified 08/13/24 22:50 Review of Systems ROS Statement: Those systems with pertinent positive or pertinent negative responses have been documented in the HPI. ROS Other: All systems not noted in ROS Statement are negative. Past Medical History Past Medical History: Asthma Additional Past Medical History / Comment(s): FX RT ARM, SPLINTED AND SURGERY. PREVIOUS FX OF LEFT ARM AT AGE 7 History of Any Multi-Drug Resistant Organisms: None Reported Past Surgical History: Orthopedic Surgery Past Anesthesia/Blood Transfusion Reactions: No Reported Reaction Additional Past Anesthesia/Blood Transfusion Reaction / Comment(s): NO FAMILY HX OF PROBLEMS Past Psychological History: No Psychological Hx Reported Smoking Status: Never smoker Past Alcohol Use History: Occasional Past Drug Use History: Marijuana - Past Family History Mother Family Medical History: No Reported History General Exam Limitations: no limitations General appearance: alert, in no apparent distress, anxious Head exam: Present: atraumatic, normocephalic, normal inspection Eye exam: Present: normal appearance, PERRL, EOMI. Absent: scleral icterus, conjunctival injection, periorbital swelling ENT exam: Present: normal exam, mucous membranes moist Neck exam: Present: normal inspection. Absent: tenderness, meningismus, lymphadenopathy Respiratory exam: Present: respiratory distress, wheezes, accessory muscle use, decreased breath sounds, prolonged expiratory. Absent: rales, rhonchi, stridor Cardiovascular Exam: Present: normal rhythm, tachycardia, normal heart sounds. Absent: systolic murmur, diastolic murmur, rubs, gallop, clicks GI/Abdominal exam: Present: soft, normal bowel sounds. Absent: distended, tenderness, guarding, rebound, rigid Extremities exam: Present: normal inspection, full ROM, normal capillary refill. Absent: tenderness, pedal edema, joint swelling, calf tenderness Back exam: Present: normal inspection Neurological exam: Present: alert, oriented X3, CN II-XII intact Psychiatric exam: Present: normal affect, normal mood Skin exam: Present: warm, dry, intact, normal color. Absent: rash Course Vital Signs 08/13/24 08/13/24 08/13/24 22:46 23:29 23:44 Temperature 98.5 F Pulse Rate 111 H 101 H 104 H Respiratory 28 H Rate Blood Pressure 123/81 O2 Sat by Pulse 94 L Oximetry 08/13/24 08/14/24 08/14/24 23:57 00:00 00:04 Temperature Pulse Rate 95 103 H 106 H Respiratory 20 Rate Blood Pressure 118/58 O2 Sat by Pulse 96 Oximetry 08/14/24 08/14/24 08/14/24 01:00 02:58 03:15 Temperature Pulse Rate 76 104 H 112 H Respiratory 18 Rate Blood Pressure 123/67 O2 Sat by Pulse 95 Oximetry 08/14/24 08/14/24 08/14/24 05:53 07:37 08:00 Temperature 98.8 F Pulse Rate 92 86 86 Respiratory 18 16 Rate Blood Pressure 126/69 130/68 O2 Sat by Pulse 97 98 Oximetry 08/14/24 08/14/24 08/14/24 08:16 10:00 10:19 Temperature Pulse Rate 106 H 86 86 Respiratory 16 16 Rate Blood Pressure 130/80 130/68 O2 Sat by Pulse 98 96 Oximetry - Reevaluation(s) Reevaluation #1: 08/14/24 00:05 Medical records reviewed Reevaluation #2: 08/14/24 00:05 Patient's symptoms improved Reevaluation #3: 08/14/24 00:05 Patient informed of results and questions answered Reevaluation #4: Was pt. sent in by a medical professional or institution (, [facility], ADJUNCT PSYCHOLOGY FACULTY MEMBER, urgent care, hospital, or shelter...) When possible be specific @ -no Did you speak to anyone other than the patient for history (EMS, parent, family, police, friend...)? What history was obtained from this source @ -no Did you review nursing and triage notes (agree or disagree)? Why? @ -agree Are old charts reviewed (outside hosp., previous admission, EMS record, old EKG, old radiological studies, urgent care reports/EKG's, shelter records)? Report findings @ -yes Differential Diagnosis (chest pain, altered mental status, abdominal pain women, abdominal pain men, vaginal bleeding, weakness, fever, dyspnea, syncope, headache, dizziness, GI bleed, back pain, seizure, CVA, palpatations, mental health, musculoskeletal)? @ -prior EKG interpreted by me (3pts min.). @ -yes X-rays interpreted by me (1pt min.). @ -yes negative for acute disease CT interpreted by me (1pt min.). @ -no U/S interpreted by me (1pt. min.). @ -no What testing was considered but not performed or refused? (CT, X-rays, U/S, labs)? Why? @ -none What meds were considered but not given or refused? Why? @ -none Did you discuss the management of the patient with other professionals (bam caceres i.e. , [facility], AD[employer]CT PSYCHOLOGY FACULTY MEMBER, lab, RT, psych nurse, director social welfare, personal finance instructor, teacher, hospital security officer, business case analyst)? Give summary @ -no Was smoking cessation discussed for >3mins.? @ -no Was critical care preformed (if so, how long)? @ -no Were there social determinants of health that impacted care today? How? (Homelessness, low income, unemployed, alcoholism, drug addiction, transportation, low edu. Level, literacy, decrease access to med. care, fdc, rehab)? @ -none Was there de-escalation of care discussed even if they declined (Discuss DNR or withdrawal of care, Hospice)? DNR status @ -no What co-morbidities impacted this encounter? (DM, HTN, Smoking, COPD, CAD, Cancer, CVA, ARF, Chemo, Hep., AIDS, mental health diagnosis, sleep apnea, morbid obesity)? @ -none Was patient admitted / discharged? Hospital course, mention meds given and route, prescriptions, significant lab abnormalities, going to OR and other pertinent info. @ - 28 female to the ER for evaluation of severe asthma exacerbation status asthmaticus Admitted Undiagnosed new problem with uncertain prognosis? @ -no Drug Therapy requiring intensive monitoring for toxicity (Heparin, Nitro, Insulin, Cardizem)? @ -no Were any procedures done? @ -no Diagnosis/symptom? @ -status asthmaticus Acute, or Chronic, or Acute on Chronic? @ -Acute Uncomplicated (without systemic symptoms) or Complicated (systemic symptoms)? @ -Complicated Side effects of treatment? @ -no Exacerbation, Progression, or Severe Exacerbation? @ -exacerbation Poses a threat to life or bodily function? How? (Chest pain, [place], [place], pneumonia, PE, COPD, DKA, ARF, appy, cholecystitis, CVA, Diverticulitis, Homicidal, Suicidal, threat to staff... and all critical care pts) @ -yes with respiratory distress Reevaluation #5: Differential Dyspnea: Coronary syndrome, arrhythmia, tamponade, asthma, COPD, pulmonary embolism, pneumonia, pneumothorax, pulmonary effusion, anaphylaxis, diabetic ketoacidosis, flailed chest, pulmonary contusion, diaphragmatic rupture, anemia, neuromuscular, this is not meant to be an all-inclusive list. - Consultations Consultation #1: Spoke with sound who agrees to admit this patient Medical Decision Making - Medical Decision Making 28 female to the ER for evaluation of severe asthma exacerbation status asthmaticus - Lab Data Result diagrams: 08/14/24 05:44 08/14/24 05:44 Lab Results 08/13/24 08/13/24 08/13/24 Range/Units 23:11 23:11 23:11 WBC 24.86 H (4.50-10.00) 10*3/uL RBC 4.57 (4.10-5.20) 10*6/uL Hgb 12.6 (12.0-15.0) g/dL Hct 38.2 (37.2-46.3) % MCV 83.6 (80.0-97.0) fL MCH 27.6 (27.0-32.0) pg MCHC 33.0 (32.0-37.0) g/dL Plt Count 453 H (140-440) 10*3/uL MPV 8.7 L (9.5-12.2) fL Immature Gran % (Auto) 0.5 % Neutrophils % 78.9 % Lymphocytes % 11.1 % Monocytes % 9.3 % Eosinophils % 0.0 % Basophils % 0.2 % Immature Gran # 0.12 H (0.00-0.04) 10*3/uL Neutrophils # 19.61 H (1.80-7.70) 10*3/uL Lymphocytes # 2.75 (0.90-5.00) 10*3/uL Monocytes # 2.32 H (0.20-1.00) 10*3/uL Eosinophils # 0.01 L (0.04-0.35) 10*3/uL Basophils # 0.05 (0.00-0.10) 10*3/uL D-Dimer 0.21 (<0.60) mg/L FEU Sodium 139 (137-145) mmol/L Potassium 4.6 (3.5-5.1) mmol/L Chloride 106 (98-107) mmol/L Carbon Dioxide 22 (22-30) mmol/L Anion Gap 11 mmol/L BUN 16 (7-17) mg/dL Creatinine 0.61 (0.52-1.04) mg/dL Est GFR (CKD-EPI)AfAm >90 (>60 ml/min/1.73 sqM) Est GFR (CKD-EPI)NonAf >90 (>60 ml/min/1.73 sqM) Glucose 128 H (74-99) mg/dL Calcium 10.5 H (8.4-10.2) mg/dL Magnesium 2.0 (1.6-2.3) mg/dL Total Bilirubin 0.4 (0.2-1.3) mg/dL AST 30 (14-36) U/L ALT 39 H (4-34) U/L Alkaline Phosphatase 88 (38-126) U/L Troponin I (0.000-0.034) ng/mL NT-Pro-B Natriuret Pep 46 pg/mL Total Protein 7.4 (6.3-8.2) g/dL Albumin 4.5 (3.5-5.0) g/dL Influenza Type A (PCR) (Not Detectd) Influenza Type B (PCR) (Not Detectd) RSV (PCR) (Not Detectd) SARS-CoV-2 (PCR) (Not Detectd) 08/13/24 08/13/24 Range/Units 23:11 23:17 WBC (4.50-10.00) 10*3/uL RBC (4.10-5.20) 10*6/uL Hgb (12.0-15.0) g/dL Hct (37.2-46.3) % MCV (80.0-97.0) fL MCH (27.0-32.0) pg MCHC (32.0-37.0) g/dL Plt Count (140-440) 10*3/uL MPV (9.5-12.2) fL Immature Gran % (Auto) % Neutrophils % % Lymphocytes % % Monocytes % % Eosinophils % % Basophils % % Immature Gran # (0.00-0.04) 10*3/uL Neutrophils # (1.80-7.70) 10*3/uL Lymphocytes # (0.90-5.00) 10*3/uL Monocytes # (0.20-1.00) 10*3/uL Eosinophils # (0.04-0.35) 10*3/uL Basophils # (0.00-0.10) 10*3/uL D-Dimer (<0.60) mg/L FEU Sodium (137-145) mmol/L Potassium (3.5-5.1) mmol/L Chloride (98-107) mmol/L Carbon Dioxide (22-30) mmol/L Anion Gap mmol/L BUN (7-17) mg/dL Creatinine (0.52-1.04) mg/dL Est GFR (CKD-EPI)AfAm (>60 ml/min/1.73 sqM) Est GFR (CKD-EPI)NonAf (>60 ml/min/1.73 sqM) Glucose (74-99) mg/dL Calcium (8.4-10.2) mg/dL Magnesium (1.6-2.3) mg/dL Total Bilirubin (0.2-1.3) mg/dL AST (14-36) U/L ALT (4-34) U/L Alkaline Phosphatase (38-126) U/L Troponin I <0.012 (0.000-0.034) ng/mL NT-Pro-B Natriuret Pep pg/mL Total Protein (6.3-8.2) g/dL Albumin (3.5-5.0) g/dL Influenza Type A (PCR) Not Detected (Not Detectd) Influenza Type B (PCR) Not Detected (Not Detectd) RSV (PCR) Not Detected (Not Detectd) SARS-CoV-2 (PCR) Not Detected (Not Detectd) - EKG Data -: EKG Interpreted by Me (EKG sinus 98 OR 142 QRS 85 QTc 374) - Radiology Data Radiology results: report reviewed (Chest x-ray is negative for acute disease), image reviewed Disposition Clinical Impression: Asthma exacerbation, Asthma with acute exacerbation, Asthma with status asthmaticus Disposition: ADMITTED IP TO THIS HOSP Condition: Serious Is patient prescribed a controlled substance at d/c from ED?: No Time of Disposition: 23:55
[2024-08-13] MEDS ORDERED: MORPHINE SULFATE 2 MG/ML SYRINGE IVP PRN (23:02)
[2024-08-13] MEDS: SODIUM CHLORIDE 0.9% 1,000 ML IV ONE (23:18)
[2024-08-13] MEDS: MAGNESIUM SULFATE-D5W PMX 1 GM in DEXTROSE/WATER 1 100ML.BAG IVPB SCH (23:19)
[2024-08-13] MEDS: TERBUTALINE 1 MG/ML VIAL SQ STA (23:20)
[2024-08-13] MEDS: DEXAMETHASONE SOD PHOSPHATE 10 MG/ML 1 ML VIAL IVP STA (23:22)
[2024-08-13 23:24] LABS: Basophils # (A) 0.05 10*3/uL (0.00-0.10); Basophils % (A) 0.2 %; Eosinophils # (A) 0.01 10*3/uL (0.04-0.35); HCT 38.2 % (37.2-46.3); HGB 12.6 g/dL (12.0-15.0); Lymphocytes # (A) 2.75 10*3/uL (0.90-5.00); Lymphocytes % (A) 11.1 %; MCH 27.6 pg (27.0-32.0); MCV 83.6 fL (80.0-97.0); Mean Platelet Volume 8.7 fL (9.5-12.2); Monocytes # (A) 2.32 10*3/uL (0.20-1.00); Monocytes % (A) 9.3 %; Neutrophils # (A) 19.61 10*3/uL (1.80-7.70); Neutrophils % (A) 78.9 %; Platelet Count 453 10*3/uL (140-440); RBC 4.57 10*6/uL (4.10-5.20); RDW 16.2 % (11.5-14.5); WBC 24.86 10*3/uL (4.50-10.00)
[2024-08-13] MEDS: BENZONATATE 100 MG CAP PO STA (23:25)
[2024-08-13] MEDS: MORPHINE SULFATE 2 MG/ML SYRINGE IVP STA (23:26)
[2024-08-13] MEDS: ALBUTEROL NEBULIZED 2.5 MG/3 ML INHALATION STA (23:28)
[2024-08-13] MEDS: IPRATROPIUM 0.5 MG/2.5 ML NEBU INHALATION STA (23:28)
[2024-08-13 23:37] LABS: ALT 39 U/L (4-34); AST 30 U/L (14-36); African American GFR (CKD) >90 (>60 ml/min/1.73 sqM); Albumin 4.5 g/dL (3.5-5.0); Alkaline Phosphatase 88 U/L (38-126); Anion Gap 11 mmol/L; Blood Urea Nitrogen 16 mg/dL (7-17); Calcium 10.5 mg/dL (8.4-10.2); Carbon Dioxide 22 mmol/L (22-30); Chloride 106 mmol/L (98-107); Glucose 128 mg/dL (74-99); Non-African American GFR(CKD) >90 (>60 ml/min/1.73 sqM); Potassium 4.6 mmol/L (3.5-5.1); Sodium 139 mmol/L (137-145); Total Bilirubin 0.4 mg/dL (0.2-1.3); Total Protein 7.4 g/dL (6.3-8.2)
[2024-08-13 23:44] LABS: NT-Pro-B-Type Natriuretic Pept 46 pg/mL
[2024-08-14] MEDS ORDERED: NALOXONE 0.4 MG/ML 1 ML VIAL IV PRN (00:03)
[2024-08-14] MEDS ORDERED: ONDANSETRON 4 MG/2 ML VIAL IVP PRN (00:03)
[2024-08-14] MEDS: SODIUM CHLORIDE 0.9% 1,000 ML IV SCH ×2 (00:24→00:25)
--- NOTE | 2024-08-14 00:29 | XR ---
EXAM: XR Chest, 2 Views CLINICAL HISTORY: ITS.REASON XR Reason: difficulty breathing TECHNIQUE: Frontal and lateral views of the chest. COMPARISON: No relevant prior studies available. FINDINGS: Lungs: Unremarkable. No consolidation. Pleural space: Unremarkable. No pneumothorax. Heart: Unremarkable. No cardiomegaly. Mediastinum: Unremarkable. Bones/joints: Unremarkable. IMPRESSION: No consolidation.
[2024-08-14 00:31] LABS: Influenza A Not Detected (Not Detectd); Influenza B Not Detected (Not Detectd); RSV Not Detected (Not Detectd)
[2024-08-14] MEDS ORDERED: IPRATROPIUM-ALBUTEROL 3 ML NEB INHALATION PRN (00:56)
[2024-08-14] MEDS ORDERED: BENZONATATE 100 MG CAP PO PRN (01:00)
--- NOTE | 2024-08-14 02:09 | P.HPIM ---
History of Present Illness H&P Date: 08/14/24 Patient is a 28-year-old female with a history of asthma presenting with persistent shortness of breath and wheezing. Patient was admitted on 08/12, discharged yesterday after being seen by pulmonology. Patient claims that she was feeling well, but went home and did a lot of intensive physical activity/work. This led to exacerbation of her asthma. She had extreme shortness of breath which did not relieve with bronchodilators. This prompted her to come back to the hospital. She currently denies any shortness of breath, chest pain, abdominal pain, nausea, vomiting, urinary or bowel complaints. She denies any fevers or chills. She still has some nonproductive cough. In the ED, temperature was 98.5, pulse 111, respiratory 28, blood pressure 123/81, saturating at 94% on room air. EKG shows normal sinus rhythm. Chest x- ray independently interpreted, shows no opacities. WBC 24.86, platelet 453, hemoglobin 12.6, creatinine 0.61, calcium 10.5, troponin negative, proBNP 46, re spiratory viral panel negative. In the ED, patient was given albuterol nebulizer treatment, DuoNebs, 2 g of IV magnesium and normal saline. She was also given 0.25 mg subcu terbutaline. Patient being admitted for asthma exacerbation. Pertinent positives and negatives as discussed in HPI, a complete review of systems was performed and all other systems are negative. Patient seen and examined at bedside. Vital signs reviewed General: nontoxic, no distress, appears at stated age Derm: warm, dry Head: atraumatic, normocephalic, symmetric Eyes: EOMI, no lid lag, anicteric sclera, pupils equal round reactive to light ENT: Nose and ears atraumatic Neck: No thyromegaly, supple Mouth: no lip lesion, mucus membranes moist Cardiovascular: S1S2 reg, no murmur, no edema Lungs: clear to auscultation bilateral, no rhonchi, no rales, no wheeze, no accessory muscle use Abdominal: soft, nontender to palpation, no guarding, no appreciable organomegaly Ext: no gross muscle atrophy, muscle strength muscle strength 5 out of 5 in all 4 extremities, no contractures Neuro: CN II-XII grossly intact Psych: Alert, oriented, appropriate affect Assessment/Plan: Active: Acute asthma exacerbation Leukocytosis, likely reactive and steroid induced - Continue albuterol nebulized every 4 hours, DuoNebs every 2 hours as needed - Oral prednisone 40 daily - Check peak expiratory flow, she claims that he was at 150 during her exacerbation at home - Repeat CBC Hypercalcemia - Continue normal saline at 130 cc an hour - Repeat levels in the morning Chronic: Chronic migraine The patient is admitted with an anticipated less than 2 midnight stay as observation status for evaluation of asthma exacerbation. Surrogate decision-maker: Mother CODE STATUS: Full code DVT prophylaxis: Patient is ambulatory Anticipated discharge date: Pending clinical course Anticipated discharge place: Pending clinical course A total of 65 minutes was spent on the care of this complex patient more than 50% of the time was spent in counseling and care coordination. Past Medical History Past Medical History: Asthma Additional Past Medical History / Comment(s): FX RT ARM, SPLINTED AND SURGERY. PREVIOUS FX OF LEFT ARM AT AGE 7 History of Any Multi-Drug Resistant Organisms: None Reported Past Surgical History: Orthopedic Surgery Past Anesthesia/Blood Transfusion Reactions: No Reported Reaction Additional Past Anesthesia/Blood Transfusion Reaction / Comment(s): NO FAMILY HX OF PROBLEMS Past Psychological History: No Psychological Hx Reported Smoking Status: Never smoker Past Alcohol Use History: Occasional Past Drug Use History: Marijuana - Past Family History Mother Family Medical History: No Reported History Medications and Allergies Home Medications Medication Instructions Recorded Confirmed Type Albuterol Nebulized [Ventolin 2.5 mg INHALATION RT-Q4H PRN 08/12/24 08/12/24 History Nebulized] Albuterol Sulfate [Albuterol 2 puff PO RT-Q4H PRN 08/12/24 08/12/24 History Sulfate Hfa] SUMAtriptan succinate [Imitrex] 25 mg PO BID PRN 08/12/24 08/12/24 History Budesonide/Formoterol Fumarate 1 puff INHALATION BID #1 each 08/13/24 Rx [Symbicort 80-4.5 Mcg Inhaler] Montelukast [Singulair] 10 mg PO DAILY #30 tab 08/13/24 Rx predniSONE [Deltasone] 40 mg PO DAILY #15 tab 08/13/24 Rx Allergies Allergy/AdvReac Type Severity Reaction Status Date / Time No Known Allergies Allergy Verified 08/13/24 22:50 Physical Exam Vitals: Vital Signs Temp Pulse Resp BP Pulse Ox 08/14/24 00:04 106 H 08/14/24 00:00 103 H 20 118/58 96 08/13/24 23:57 95 08/13/24 23:44 104 H 08/13/24 23:29 101 H 08/13/24 22:46 98.5 F 111 H 28 H 123/81 94 L Intake and Output 08/13/24 08/13/24 08/14/24 14:59 22:59 06:59 Other: Weight 95.254 kg Results CBC & Chem 7: 08/13/24 23:11 08/13/24 23:11 Labs: Abnormal Lab Results - Last 24 Hours (Table) 08/13/24 08/13/24 Range/Units 23:11 23:11 WBC 24.86 H (4.50-10.00) 10*3/uL Plt Count 453 H (140-440) 10*3/uL MPV 8.7 L (9.5-12.2) fL Immature Gran # 0.12 H (0.00-0.04) 10*3/uL Neutrophils # 19.61 H (1.80-7.70) 10*3/uL Monocytes # 2.32 H (0.20-1.00) 10*3/uL Eosinophils # 0.01 L (0.04-0.35) 10*3/uL Glucose 128 H (74-99) mg/dL Calcium 10.5 H (8.4-10.2) mg/dL ALT 39 H (4-34) U/L
[2024-08-14] MEDS: IPRATROPIUM-ALBUTEROL 3 ML NEB INHALATION STA (02:57)
[2024-08-14] MEDS: ALBUTEROL NEBULIZED 2.5 MG/3 ML INHALATION SCH (02:58)
[2024-08-14 05:56] VITALS: TEMP 98.8
[2024-08-14 07:38] VITALS: RESP 16
[2024-08-14] MEDS: predniSONE 20 MG TAB PO SCH (07:51)
[2024-08-14] MEDS: MONTELUKAST 10 MG TAB PO SCH (07:52)
[2024-08-14] MEDS: SYMBICORT 160-4.5 MCG INHALER INHALATION SCH (08:00)
[2024-08-14] MEDS ORDERED: SYMBICORT 80-4.5 MCG INHALER INHALATION SCH (09:00)
[2024-08-14] MEDS ORDERED: BENZONATATE 100 MG CAP PO SCH (09:00)
[2024-08-14 10:08] VITALS: PULSE 86
[2024-08-14 10:20] VITALS: BP 130/68
[2024-08-14 10:22] LABS: Basophils # (A) 0.02 X 10*3/uL (0.00-0.10); Basophils % (A) 0.1 %; Eosinophils # (A) 0 X 10*3/uL (0.04-0.35); Eosinophils % (A) 0 %; HCT 35.8 % (37.2-46.3); HGB 11.3 g/dL (12.0-15.0); Lymphocytes # (A) 1.19 X 10*3/uL (0.90-5.00); Lymphocytes % (A) 7.4 %; MCH 26.9 pg (27.0-32.0); MCHC 31.6 g/dL (32.0-37.0); MCV 85.2 FL (80.0-97.0); Mean Platelet Volume 9.3 FL (9.5-12.2); Monocytes # (A) 0.75 X 10*3/uL (0.20-1.00); Monocytes % (A) 4.7 %; NRBC Per 100 WBC 0 X 10*3/uL (0.00-0.01); Neutrophils # (A) 13.98 X 10*3/uL (1.80-7.70); Neutrophils % (A) 87.4 %; Platelet Count 382 X 10*3/uL (140-440); RDW 16.2 % (11.5-14.5); WBC 16.01 X 10*3/uL (4.50-10.00)
--- NOTE | 2024-08-14 10:39 | P.DS ---
Providers Date of admission: 08/14/24 00:03 Expected date of discharge: 08/14/24 Attending physician: Freddie Barreto MD [facility] Course: Hospital Course: Patient is a 28-year-old female with a history of asthma presenting with persistent shortness of breath and wheezing. Patient was admitted on 08/12, discharged yesterday after being seen by pulmonology. Patient claims that she was feeling well, but went home and did a lot of intensive physical activity/work. This led to exacerbation of her asthma. She had extreme shortness of breath which did not relieve with bronchodilators. This prompted her to come back to the hospital. She currently denies any shortness of breath, chest pain, abdominal pain, nausea, vomiting, urinary or bowel complaints. She denies any fevers or chills. She still has some nonproductive cough. In the ED, temperature was 98.5, pulse 111, respiratory 28, blood pressure 123/81, saturating at 94% on room air. EKG shows normal sinus rhythm. Chest x-ray independently interpreted, shows no opacities. WBC 24.86, platelet 453, hemoglobin 12.6, creatinine 0.61, calcium 10.5, troponin negative, proBNP 46, respiratory viral panel negative. In the ED, patient was given albuterol nebulizer treatment, DuoNebs, 2 g of IV magnesium and normal saline. She was also given 0.25 mg subcu terbutaline. Patient being admitted for asthma exacerbation. Patient was seen at bedside on 08/14/2024. Patient reports that her symptoms have improved. Patient is medically stable to be discharged back home and follow-up with pulmonology Dr. Jensen in 1 week after discharge. Patient will continue to take the prednisone at home and maintenance Symbicort and Singulair that were prescribed when she got discharged yesterday. Physical examination GENERAL: This is a 28-year-old in no apparent distress at the time of examination. Pleasant and cooperative. HEENT: Head is atraumatic, normocephalic. Pupils are equal, round, and reactive to light. Sclerae anicteric. Conjunctivae are clear. Mucus membranes of the mouth are moist. Neck is supple. RESPIRATORY: Clear to auscultation. Mild expiratory wheezing on the right side. No use of accessory muscles. Patient maintaining oxygen saturation greater than 92%. CARDIOVASCULAR: Regular rate and rhythm. S1 and S2 noted. No systolic or diastolic murmur auscultated. No JVD noted. No S3 or S4 noted. GASTROINTESTINAL: No distention noted. Abdomen soft and round. Normal active bowel sounds auscultated x 4 quadrants. No pain or tenderness noted upon palpation. INTEGUMENTARY: No cyanosis. No jaundice. No rashes noted. No cellulitis noted. EXTREMITIES: 2+ peripheral pulses. No evidence of peripheral edema. No calf tenderness noted. NEUROLOGIC: Cranial nerves II-XII intact. PSYCHIATRIC: Awake, alert, and oriented X 3. Appropriate affect. Intact judgement and insight. Discharge diagnosis: Acute asthma exacerbation Leukocytosis, likely reactive and steroid induced Hypercalcemia Chronic migraine A total of 36 minutes of time were spent preparing this complex discharge summary. Patient was discharged on 08/14/2024 at 935. I have seen and evaluated the patient today. Discussed with the resident and agree with the residents finding and plan as documented in the resident's note. Changes highlighted in blue font. Patient Condition at Discharge: Serious Plan - Discharge Summary New Discharge Prescriptions: Continue SUMAtriptan succinate [Imitrex] 25 mg PO BID PRN PRN Reason: Migraine Headache Albuterol Nebulized [Ventolin Nebulized] 2.5 mg INHALATION RT-Q4H PRN PRN Reason: Shortness Of Breath predniSONE [Deltasone] 40 mg PO DAILY #15 tab Montelukast [Singulair] 10 mg PO DAILY #30 tab Budesonide/Formoterol Fumarate [Symbicort 80-4.5 Mcg Inhaler] 1 puff INHALATION BID #1 each Albuterol Sulfate [Albuterol Sulfate Hfa] 2 puff PO RT-Q4H PRN PRN Reason: Shortness Of Breath Discharge Medication List Albuterol Nebulized [Ventolin Nebulized] 2.5 mg INHALATION RT-Q4H PRN 08/12/24 [History] Albuterol Sulfate [Albuterol Sulfate Hfa] 2 puff PO RT-Q4H PRN 08/12/24 [History] SUMAtriptan succinate [Imitrex] 25 mg PO BID PRN 08/12/24 [History] Budesonide/Formoterol Fumarate [Symbicort 80-4.5 Mcg Inhaler] 1 puff INHALATION BID #1 each 08/13/24 [Rx] Montelukast [Singulair] 10 mg PO DAILY #30 tab 08/13/24 [Rx] predniSONE [Deltasone] 40 mg PO DAILY #15 tab 08/13/24 [Rx] Follow up Appointment(s)/Referral(s): Geovani Gorman DO [Primary Care Provider] - 1-2 days Toni Jensen DO [Doctor of Osteopathic Medicine] - 1 Week Patient Instructions/Handouts: Asthma (DC) Discharge Disposition: HOME SELF-CARE
[2024-08-14 10:45] LABS: BUN/Creat Ratio 22.67 Ratio (12.00-20.00); Blood Urea Nitrogen 13.6 mg/dL (9.0-27.0); Calcium 8.6 mg/dL (8.7-10.3); Chloride 108 mmol/L (96-109); Glucose 171 mg/dL (70-110); Potassium 5.2 mmol/L (3.5-5.5); Sodium 137 mmol/L (135-145)
== END 2024-08-14 10:27 | disposition home or self-care (01) ==
LOC: EC 22:45 → 4SSUR 08-14 00:03 → 6NMEDSUR 08-14 01:07
PROVIDERS: ADMIT Internal Medicine; ATTEND Internal Medicine
DX: J45.901 Unspecified asthma with (acute) exacerbation (principal); J45.902 Unspecified asthma with status asthmaticus; D72.829 Elevated white blood cell count, unspecified; E83.52 Hypercalcemia; G43.909 Migraine, unspecified, not intractable, without status migrainosus; Z79.51 Long term (current) use of inhaled steroids; Z79.52 Long term (current) use of systemic steroids; Z79.899 Other long term (current) drug therapy
CPT/HCPCS: 96365; 96366; 96372; 96374; 96375; 99285; 36415; 94640 ×2; 94644; 93005; 85379; 83880; 80053; 80048; 83735; 84484; 85025 ×2; 87636; 71046; G0378; J3105; J1100; J2270; J3475 ×2; J7512

== ENCOUNTER → 2024-09-24 | Outpatient (CLI) | payer OTHER ==
[2024-09-24 16:51] LABS: Alternaria alternata IgE <0.10 kU/L; Aspergillus fumagatus IgE <0.10 kU/L; Birch IgE <0.10 kU/L; Cat Epith & Dander IgE <0.10 kU/L; Cladosporian herbarum IgE <0.10 kU/L; Cockroach IgE <0.10 kU/L; Dermato. farinae IgE <0.10 kU/L; Dog Dander IgE <0.10 kU/L; Elm IgE <0.10 kU/L; Maple (Box Elder) IgE <0.10 kU/L; Oak IgE <0.10 kU/L; Ragweed,Common IgE <0.10 kU/L; Red Top (Bentgrass) IgE <0.10 kU/L
== END | disposition home or self-care (01) ==
LOC: LABWHC1 11:06
PROVIDERS: ATTEND Internal Medicine Critical Care Medicine
DX: J45.909 Unspecified asthma, uncomplicated (principal)
CPT/HCPCS: 36415; 82785; 85008; 86003